=== PATIENT | male | born 1960 | race Hispanic/Latino ===

== ENCOUNTER 2019-11-04 14:58 | Inpatient (IN) | payer MEDICAID, SELFPAY ==
[2019-11-04] VITALS (12 sets, daily range): BP systolic 126–161; BP diastolic 82–102; PULSE 18–106; RESP 18–100; TEMP 36.5–37.7; O2SAT 77–100; BMI 30.9
--- NOTE | ~2019-11-04 | XR_ITS ---
EXAMINATION: XR chest 2V DATE: 11/06/2019 09:15 INDICATION: Leukocytosis TECHNIQUE: Frontal and lateral views of the chest are obtained COMPARISON: None available FINDINGS: The lungs are free of acute opacities. There is no pleural effusion or pneumothorax. The ca rdiomediastinal silhouette is normal. The visualized bones and soft tissues are unremarkable. A large volume of colonic gas is noted. IMPRESSION: 1. No acute cardiopulmonary abnormality. Reviewed, dictated and finalized at location A.
--- NOTE | ~2019-11-04 | CT_ITS ---
EXAMINATION: CT abdomen pelvis w con EXAM DATE: 11/04/2019 16:24 INDICATION: Abdominal pain. TECHNIQUE: Spiral CT of the abdomen and pelvis was performed following intravenous injection of 100 m L Omnipaque 350. Axial, coronal and sagittal images were reviewed. The dose-length product (DLP) fo r this examination was 728.72 mGy-cm. The exposure was tailored according to patient size (auto mA e xposure control), and iterative reconstruction (ASIR) was used as additional dose reduction technique . There is no prior study for comparison. FINDINGS: There is a sigmoid colonic mass for approximately 8 cm in length with wall thickening, narr owing of the lumen, likely causing partial obstruction given the moderate to large amount of colonic stool proximal to this. Some small adjacent round lymph nodes which likely have malignancy but are no t pathologically enlarged. No retroperitoneal lymphadenopathy. There are approximately 20 liver mass es centrally low dense, consistent with metastatic disease, largest in the inferior aspect of the rig ht liver lobe measuring 9 cm. Gallbladder is unremarkable. No biliary obstruction. Portal and splenic veins are patent. Kidneys enhance symmetrically. There is no hydronephrosis. The prostate is unremarkable. The bladder is u nremarkable. There is mild scattered arteriosclerotic disease. There are small bilateral inguinal fa t-containing hernias. The appendix is normal. The stomach and small bowel are unremarkable. No free intraperitoneal gas. The heart is normal in size. There are no pericardial or pleural effusions. The lung bases are u nremarkable. Several small femoral sclerotic foci likely bone islands. IMPRESSION: 1. Sigmoid colonic mass causing low-grade obstruction with moderate to large amount of stool proxima l to this. Small round perisigmoid lymph nodes, likely positive for malignancy. 2. Liver metastatic disease. Reviewed, dictated and finalized at location A. IMPRESSION: 1. Sigmoid colonic mass causing low-grade obstruction with moderate to large a mount of stool proximal to this. Small round perisigmoid lymph nodes, likely po sitive for malignancy. 2. Liver metastatic disease.
[2019-11-04 15:30] LABS: Basophils Absolute Auto 0.1 K/mm3 (0.0-0.1); Basophils Percent Auto 0.6 % (0.2-1.2); Eosinophils Absolute Auto 0.2 K/mm3 (0-0.3); Eosinophils Percent Auto 1.7 % (0-4.4); Hematocrit 28.8 % (42.0-52.0); Hemoglobin 7.6 g/dL (14.0-18.0); Immature Granulocyte Absolute 0.04 K/mm3 (0.00-0.031); Immature Granulocyte Percent A 0.4 % (0-0.5); Lymphocytes Absolute Auto 2.11 K/mm3 (0.9-3.2); Lymphocytes Percent Auto 18.8 % (18.3-44.2); Mean Corpuscular HGB Conc 26.4 g/dl (32-36); Mean Corpuscular Hemoglobin 17.4 pg (26-34); Mean Corpuscular Volume 66.1 fl (80-100); Monocytes Absolute Auto 0.9 K/mm3 (0.1-0.6); Monocytes Percent Auto 8.3 % (2.6-8.5); Neutrophils Absolute Auto 7.9 K/mm3 (1.3-6.7); Neutrophils Percent Auto 70.2 % (45.5-73.1); Platelet Count Result 676 k/mm3 (150-375); Red Blood Count 4.36 M/mm3 (4.6-6.20); Red Cell Distribution Width 22.2 % (11.5-14.5); White Blood Count 11.2 K/mm3 (4.5-10.0)
[2019-11-04 15:41] LABS: Alanine Aminotransferase 16 U/L (4-50); Albumin Level 4.8 g/dL (3.5-5.1); Alkaline Phosphatase 122 U/L (38-126); Aspartate Amino Transferase 44 U/L (17-59); Bilirubin,Total 0.9 mg/dL (0.2-1.3); Blood Urea Nitrogen 16 mg/dL (9-20); Calcium 9.1 mg/dL (8.4-10.2); Carbon Dioxide 27 mmol/L (22-30); Chloride 101 mmol/L (98-107); Estimated CRCL calculation 82 ml/min; Estimated Glomerular Filt Rate > 60; Glucose 179 mg/dL (75-110); Lipase 59 U/L (23-300); Potassium 3.9 mmol/L (3.4-5.0); Sodium 136 mmol/L (137-145)
[2019-11-04 15:50] LABS: Hypochromasia 2+ (NORMAL); Platelet Estimate Increased (Adequate)
[2019-11-04 15:51] LABS: Anisocytosis 2+ (NORMAL)
[2019-11-04] MEDS: SODIUM CHLORIDE 0.9% IV 1,000 ML 999 ML IV CONT (16:02)
[2019-11-04] MEDS: KETOROLAC 30 MG/ML VIAL (*BKC) IV PUSH (16:02)
[2019-11-04 16:44] LABS: Add Urine Microscopic? NO; Appearance Urine Clear (Clear); Bilirubin Urine Negative (Negative); Blood Urine Negative (Negative); Color Urine Yellow (Yellow); Glucose Urine UA Negative (Negative); Ketones Urine Negative (Negative); Leukocyte Esterase Ur Negative LEU/UL (Negative); Nitrate Urine Negative (Negative); Protein Urine Negative (Negative); Urobilinogen Urine Negative mg/dL (<2.0)
[2019-11-04 16:47] LABS: Specific Grav Ur > 1.060 (1.001-1.035)
--- NOTE | 2019-11-04 17:07 | ED.ABDPAIN ---
HPI - Abdominal Pain General Chief Complaint: Abdominal Pain Stated Complaint: IBS Time Seen by Provider: 11/04/19 15:01 Source: RN notes reviewed History of Present Illness HPI narrative: Patient presents emergency department from home for abdominal pain. Patient states he has been having ongoing abdominal pain for the past 2 years that has worsened in the past several weeks. The pain is located diffusely throughout the abdomen described as cramping. He states that he had self diagnosed himself with IBS but has had no official work-up. He denies any fevers or chills nausea vomiting diarrhea or any other symptoms of concern he states he has had thin stools states he is taking no pain medication today Related Data Home Medications Medication Instructions Recorded Confirmed No Home Medications 11/04/19 11/04/19 aspirin 325 mg PO BID 11/04/19 11/04/19 Allergies Allergy/AdvReac Type Severity Reaction Status Date / Time No Known Allergies Allergy Verified 11/04/19 15:10 Review of Systems Review of Systems: Narrative: Gen.: Denies fevers or chills Eyes: Denies eye pain or visual change ENT: Denies congestion Respiratory: Denies shortness of breath or cough CV: Denies chest pain or palpitations GI: see HPI denies burning, urgency, frequency or hematuria Musculoskeletal: Denies back pain or muscle pain Neuro: Denies numbness, tingling, weakness or focal weakness Skin: Denies rash Except as documented, all other systems reviewed and negative ON LICENSE OF [facility] Past Medical History Medical History (Updated 11/04/19 @ 17:25 by Sung Hartman DO) Patient denies significant medical history Social History Social History (Updated 11/04/19 @ 17:09 by Sung Hartman DO) Smoking packs per day: 0.5 Smoking cigarettes per day: 10.0 Gender identity (if verbalized by the patient): Male Exam Narrative: Exam Narrative: APPEARANCE: No acute distress, nontoxic, resting in bed EYES: EOMI HEENT: Normocephalic, atraumatic, OMM RESPIRATORY: No respiratory distress Clear to auscultation bilaterally with no rhonchi wheezing or rales. CARDIOVASCULAR: Regular rate and rhythm without murmurs rubs or gallops. ABDOMINAL: Soft, nondistended, diffusely tender to palpation no rebound or guarding Rectal: No hemorrhoids or fissures no active bleeding small amount of light brown stool that is Hemoccult positive MUSCULOSKELETAl: Moves all extremities. No clubbing, cyanosis or edema. NEURO: Awake and alert. Following commands, speech normal, no focal deficits SKIN:: Warm, dry. No rashes lesions or abrasions PSYCHIATRIC: Normal affect/mood, Course Course Emergency Course: Discussed with Dr. Melgar for general surgery agrees with consult at this time Discussed with Dr. Jalloh for GI's presentation work-up agrees with consult at this time Discussed with [facility] for Dr Alvarado presentation work-up agrees with admission at this time Discussed with patient and family results of workup and diagnosis. Discussed need for admission. Patient and family understand and agree to current treatment plan. Patient was updated on colonic mass likely colon cancer with metastasis and need for further evaluation Vital Signs Vital signs: Vital Signs Pulse Rate 106 H 11/04/19 15:02 Respiratory Rate 20 11/04/19 15:02 Blood Pressure 161/102 H 11/04/19 15:02 Pulse Oximetry 100 11/04/19 15:02 Temperature 99.9 F H 11/04/19 15:09 Pulse Rate 97 11/04/19 16:26 Respiratory Rate 20 11/04/19 16:26 Blood Pressure 143/90 H 11/04/19 16:26 Pulse Oximetry 100 11/04/19 16:26 MDM - Abdominal Pain Lab Data Result diagrams: 11/04/19 15:24 11/04/19 15:24 Labs: Lab Results 11/04/19 11/04/19 11/04/19 Range/Units 15:23 15:24 15:24 WBC 11.2 H (4.5-10.0) K/mm3 RBC 4.36 L (4.6-6.20) M/mm3 Hgb 7.6 L (14.0-18.0) g/dL Hct 28.8 L (42.0-52.0) % MCV 66.1 L (80-100) fl MCH 17.4 L
--- NOTE | 2019-11-04 19:20 | ADMGEN ---
This patient, Jeff Duke, was admitted to 2 Medical Room 254-01. Patient/family oriented to hospital policies and general routines including ID bracelet, bed and alarms, visiting hours, pain management, procedures, bathroom and other care routines, personal items, smoking policy, room service/diet, and visiting hours. Valuables list has been completed. Information on how to activate the Rapid Response Team has been discussed. Patient/Family are encouraged to report perceived risks to care and to ask questions if they do not understand what they are told or what they should do.
[2019-11-04] MEDS: SODIUM CHLORIDE 0.9% IV 1,000 ML 125 ML IV CONT (19:26)
[2019-11-04 19:48] LABS: Hematocrit 25.5 % (42.0-52.0)
[2019-11-04 19:51] LABS: Hemoglobin 6.8 g/dL (14.0-18.0)
--- NOTE | 2019-11-04 23:33 | PM.IMHP ---
H&P: HPI History of Present Illness Chief complaint: Colonic mass with metastasis Narrative: This is a 59 year old male who hasn't seen a healthcare provider in years and presented to the hospital with severe diffuse abdominal pain, diarrhea, and fatigue. He has been dealing with abdominal pain for the past two years and has self diagnosed himself with irritable bowel disease. He has never had a colonoscopy. He also reports decreased appetite, fatigue, and generalized weakness. He denies any unintentional weight loss, night sweats, or fevers. He has had increased diarrhea and describes having about 20 soft bowel movements. He currently smokes 1-2 cigarettes every other day. He denies any rectal bleeding or dark black stools. The patient was evaluated in the ER and found to have significant anemia. He has been admitted to the hospital for further workup and Oncology and GI specialists have been consulted by ER provider. He has no other complaints tonight and denies any headaches, sore throat, cough, chest pain, or focal neurological symptoms. Review of Systems Review of Systems: All systems reviewed & are unremarkable except as noted in HPI and below PMFSH Past Medical History Medical History Patient denies significant medical history Surgical History Surgical History No significant past surgical history Family History Family History Other Diabetes mellitus Heart disease Social History Social History Smoking status: Current some day smoker Tobacco type: cigars Additional smoking assessment comments: Smokes 1-3 cigarillos every other day Alcohol intake: former Alcohol use details: Has not had any alcohol use in months Substance use: never Substance use type: does not use Living arrangements: with family Additional living arrangements comments: Lives with his . They have three children. 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 Gender identity (if verbalized by the patient): Male Spiritual care concerns: No Comments Past Surgical history is revewed and negative. Meds Home Medications and Allergies Home Medications Medication Instructions Recorded Confirmed Type acetaminophen [Tylenol] 650 mg PO PRN PRN 11/04/19 11/04/19 History aspirin 325 mg PO BID 11/04/19 11/04/19 History Allergies Allergy/AdvReac Type Severity Reaction Status Date / Time No Known Allergies Allergy Verified 11/04/19 15:10 Vital Signs Vital Signs - 24 hr 11/04/19 15:02 11/04/19 15:09 11/04/19 16:06 Temperature 37.7 C H Pulse Rate 106 H 80 Respiratory Rate 20 20 Blood Pressure 161/102 H 126/90 Pulse Oximetry 100 100 11/04/19 16:26 11/04/19 17:25 11/04/19 18:23 Temperature 36.7 C Pulse Rate 97 88 Respiratory Rate 20 18 20 Blood Pressure 143/90 H 133/90 Pulse Oximetry 100 98 11/04/19 19:17 11/04/19 20:55 11/04/19 21:10 Temperature 36.5 C 36.6 C 37.0 C Pulse Rate 76 80 18 L Respiratory Rate 18 18 100 H Blood Pressure 144/84 H 133/82 149/95 H Pulse Oximetry 100 100 77 L 11/04/19 22:00 11/04/19 22:10 11/04/19 23:10 Temperature 37.1 C 37.1 C 37.0 C Pulse Rate 82 18 L 18 L Respiratory Rate 18 100 H 100 H Blood Pressure 144/86 H 139/86 143/84 H Pulse Oximetry 100 79 L 84 L Exam Const: General: cooperative, no acute distress, alert and awake Nutritional Appearance: well nourished Orientation/consciousness: patient oriented x3 HENMT: Head: normal to inspection General nose exam: Normal external nose present Face and sinus: normal facial exam Mouth: Yes Normal oral and palatal mucosa present and Yes oropharynx normal Eyes: Pupils: Equal, round and r
[2019-11-05 00:10] VITALS: BP 134/83; PULSE 78; RESP 18; TEMP 37.2; O2SAT 100
[2019-11-05 00:50] VITALS: BP 138/87; PULSE 18; RESP 100; TEMP 37.2; O2SAT 78
[2019-11-05 02:16] LABS: IFOB Positive Control Positive; Immunochemical Fecal Occult Bl Positive (N)
[2019-11-05 03:28] LABS: Basophils Absolute Auto 0.1 K/mm3 (0.0-0.1); Basophils Percent Auto 0.4 % (0.2-1.2); Eosinophils Absolute Auto 0.2 K/mm3 (0-0.3); Eosinophils Percent Auto 1.5 % (0-4.4); Hematocrit 27.3 % (42.0-52.0); Hemoglobin 7.6 g/dL (14.0-18.0); Immature Granulocyte Absolute 0.04 K/mm3 (0.00-0.031); Immature Granulocyte Percent A 0.3 % (0-0.5); Lymphocytes Absolute Auto 1.91 K/mm3 (0.9-3.2); Lymphocytes Percent Auto 16.4 % (18.3-44.2); Mean Corpuscular HGB Conc 27.8 g/dl (32-36); Mean Corpuscular Volume 68.1 fl (80-100); Mean Platelet Volume 9.7 fl (7.4-10.4); Monocytes Absolute Auto 0.9 K/mm3 (0.1-0.6); Neutrophils Absolute Auto 8.6 K/mm3 (1.3-6.7); Neutrophils Percent Auto 73.4 % (45.5-73.1); Platelet Count Result 499 k/mm3 (150-375); Red Blood Count 4.01 M/mm3 (4.6-6.20); Red Cell Distribution Width 24.1 % (11.5-14.5); White Blood Count 11.7 K/mm3 (4.5-10.0)
[2019-11-05 03:37] LABS: Blood Urea Nitrogen 14 mg/dL (9-20); Calcium 8.3 mg/dL (8.4-10.2); Carbon Dioxide 24 mmol/L (22-30); Chloride 105 mmol/L (98-107); Estimated CRCL calculation 92 ml/min; Estimated Glomerular Filt Rate > 60; Glucose 93 mg/dL (75-110); Potassium 4.1 mmol/L (3.4-5.0); Sodium 135 mmol/L (137-145)
[2019-11-05 03:39] LABS: Hemoglobin A1C 6.1 % (<5.7)
[2019-11-05 03:52] LABS: Microcytosis 2+ (NORMAL); Platelet Estimate Adequate (Adequate)
[2019-11-05 03:53] LABS: Hypochromasia 2+ (NORMAL)
[2019-11-05 06:00] VITALS: BP 143/88; PULSE 78; RESP 20; TEMP 36.5; O2SAT 18
[2019-11-05 07:12] LABS: Hematocrit 27.4 % (42.0-52.0); Hemoglobin 7.5 g/dL (14.0-18.0)
[2019-11-05] MEDS: SODIUM CHLORIDE 0.9% IV 1,000 ML 125 ML IV CONT ×2 (07:56→16:05)
--- NOTE | 2019-11-05 08:43 | WPDGICN ---
Assessment and Plan Assessment and plan (1) Colon cancer metastasized to liver: Code(s): C18.9 - Malignant neoplasm of colon, unspecified; C78.7 - Secondary malignant neoplasm of liver and intrahepatic bile duct Status: Acute Assessment and Plan: presentation consistent with colon cancer and liver mets. will proceed with colonoscopy tomorrow, CEA 12k will need also surgery and oncology evaluation (2) Metastases to the liver: Code(s): C78.7 - Secondary malignant neoplasm of liver and intrahepatic bile duct Status: Acute (3) Iron deficiency anemia due to chronic blood loss: Code(s): D50.0 - Iron deficiency anemia secondary to blood loss (chronic) Status: Acute Assessment and Plan: due to colon cancer continue to monitor, transfusion if hb<7 (4) Abdominal pain: Qualifiers: Abdominal location: unspecified location Qualified Code(s): R10.9 - Unspecified abdominal pain Code(s): R10.9 - Unspecified abdominal pain Status: Acute Assessment and Plan: due to colon mass GI Consult Note Consult date/time: 11/05/19 08:43 Reason for consult: abdominal pain, colon mass HPI: Jeff Duke is a 59 year old male who has not seen a doctor or taking any medication who came to ER yesterday with progressive abdominal pain worse after using the restroom, cramping and worse last few weeks, also noted change in bowel pattern with thin stools. He also has been feeling tired and lightheaded, lost about 20 lb last 2 years, decrease appetite. Ct scan showed sigmoid colonic mass causing low-grade obstruction with moderate to large amount of stool proximal to this, small round perisigmoid lymph nodes, likely positive for malignancy and liver metastatic disease. He never had a colonoscopy, denies family history of colon cancer. Bloodwork showed microcytic anemia, hb 7.5, normal liver enzymes. Review of Systems Constitutional: Constitutional: Reports fatigue, Reports lethargy, Reports poor appetite and Reports weight loss Eyes: Eyes: Reports no additional eye complaints ENT: Comments: he uses hearing aids Cardiovascular: Cardiovascular: Reports lightheadedness Respiratory: Respiratory: Denies cough Gastrointestinal: Gastrointestinal: Reports abdominal pain Genitourinary: Genitourinary: Denies dysuria Musculoskeletal: Musculoskeletal: Denies neck pain Integumentary/Breasts: Skin/Breast: Denies pruritus Neurologic: Denies numbness Psychiatric: Psychiatric: Denies depression Endocrine: Endocrine: Denies cold intolerance PMF Past Medical History Medical History Patient denies significant medical history Family History Family History (Updated 11/04/19 @ 23:39 by Alber Randall MD) Other Diabetes mellitus Heart disease Social History Social History Smoking packs per day: 0.5 Smoking cigarettes per day: 10.0 Smoking status: Current some day smoker Tobacco type: cigarettes Additional smoking assessment comments: 1 per every 3 days Alcohol intake: former Substance use: never Substance use type: does not use Gender identity (if verbalized by the patient): Male Spiritual care concerns: No Meds Home Medications and Allergies Home Medications Medication Instructions Recorded Confirmed Type acetaminophen [Tylenol] 650 mg PO PRN PRN 11/04/19 11/04/19 History aspirin 325 mg PO BID 11/04/19 11/04/19 History Allergies Allergy/AdvReac Type Severity Reaction Status Date / Time No Known Allergies Allergy Verified 11/04/19 15:10 Vital Signs Vital Signs - 24 hr 11/04/19 15:02 11/04/19 15:09 11/04/19 16:06 Temperature 99.9 F H Pulse Rate 106 H 80 Respiratory Rate 20 20 Blood Pressure 161/102 H 126/90 Pulse Oximetry 100 100 11/04/19 16:26 11/04/19 17:25 11/04/19 18:23 Temperature 98.0 F Pulse R
--- NOTE | 2019-11-05 09:53 | PM.CNGS ---
Assessment and Plan Assessment and plan (1) Colon cancer metastasized to liver: Code(s): C18.9 - Malignant neoplasm of colon, unspecified; C78.7 - Secondary malignant neoplasm of liver and intrahepatic bile duct Status: Acute Assessment and Plan: CT scan reviewed and discussed in detail with the patient. This is concerning for colon cancer with liver metastasis. CEA 12,300 and the patient presents with microcytic anemia. CT suggests a low-grade obstruction associated with the colonic mass. His abdominal exam is benign and bowels continue to move. No indication for urgent surgical intervention. GI has been consulted and appreciate their recommendations. They are prepping the patient today for a colonoscopy tomorrow. Would recommend an Oncology consultation to evaluate for possible neoadjuvant chemotherapy. I discussed the plan of care with the patient and answered all questions. Thank you for allowing me to evaluate the patient in consultation and we will continue to follow along with you. (2) Iron deficiency anemia due to chronic blood loss: Code(s): D50.0 - Iron deficiency anemia secondary to blood loss (chronic) Status: Acute Assessment and Plan: Likely secondary to the colon cancer. Continue to monitor H/H. Additional Plan I discussed the patient's case and formulated the plan of care with Dr. Melgar. History of Present Illness Consult details Consult date: 11/05/19 Reason for consult: other (CT findings of sigmoid mass and low-grade obstruction with likely metastatic liver disease) Requesting physician: Sung Hartman DO Narrative: This is a 59-year-old male with no known past medical history who has not seen a physician in many years. He reportedly noticed a change in his bowel habits about two years ago when he began to have loose stools and intermittent mild abdominal discomfort. The patient states that he believed he had irritable bowel syndrome and did not see a provider for his issues. He states that his symptoms were very mild and tolerable. He recently has noticed increasing fatigue and also an increase in frequency of loose bowel movements. He reports more than 10 bowel movements a day and noticing the urge to have a bowel movement at least once per hour. His abdominal discomfort remained mild and intermittent. In the past three days, he states his fatigue worsened significantly, as well as the frequency of his bowel movements, therefore he presented to the emergency department for further evaluation. CT scan of the abdomen and pelvis showed a sigmoid colonic mass causing low-grade obstruction with moderate to large amounts of stool proximal to this, small round perisigmoid lymph nodes, likely positive for malignancy, and liver metastatic disease. Labs also revealed anemia with a hemoglobin of 7.6. The patient was admitted to the Hospitalist service. Gastroenterology was consulted. Our service was also consulted due to the CT findings. The patient is now being seen on the medical floor. He reports that since his symptoms started two years ago, he has been able to tolerate a diet, but would eat small frequent meals. He denies any current abdominal pain, nausea, or vomiting. Denies any nausea or vomiting at home prior to admission. Denies any bloody or black, tarry stools. No other complaints at this time. Denies a family history of colon cancer. No previous colonoscopies. The patient was transfused one unit of packed red blood cells since admission. Hemoglobin this morning stable at 7.5. CEA was checked and 12,300. Review of Systems Constitutional: Constitutional: Reports as per HPI, Denies chills, Denies excessive sweating, Reports fatigue, Denies fever(s), Denies headache(s) and Denies weakness Eyes: Eyes: Denies change in vision and Denies loss of vision ENT: Reports Normal hearing present, Denies dizziness and Denies headache(s) Cardiovascular: Cardiovascular: Denies chest pain, Denies syncope, Denies leg sergio
--- NOTE | 2019-11-05 12:30 | PC.NURSE ---
Dr. Guadarrama requesting that I get ahold of surgery to have port placed for chemotherapy. [facility] called and spoke to surgeons office-stated Dr. Melgar would be in charge of port placement.
[2019-11-05 14:00] VITALS: BP 132/92; PULSE 82; RESP 16; TEMP 37.1; O2SAT 100
--- NOTE | 2019-11-05 14:34 | PM.IMPN ---
Progress Note: A&P Assessment and Plan (1) Colonic mass: Code(s): K63.89 - Other specified diseases of intestine Status: Acute Assessment and Plan: -----patient has never had a colonoscopy before in his CEA is elevated. Likely colon cancer. Plan for colonoscopy and biopsy tomorrow morning. Dr. Guadarrama has been consulted. Poor prognosis (2) Anemia: Qualifiers: Anemia type: unspecified type Qualified Code(s): D64.9 - Anemia, unspecified Code(s): D64.9 - Anemia, unspecified Status: Acute Assessment and Plan: -----likely due to colon cancer. Transfused earlier in the stay and not having any symptoms such as chest pain, lightheadedness or dizziness. Will need to go home on oral iron. (3) Metastases to the liver: Code(s): C78.7 - Secondary malignant neoplasm of liver and intrahepatic bile duct Status: Acute Assessment and Plan: ------Continue Heme-Onc recommendations. (4) Abnormal glucose: Code(s): R73.09 - Other abnormal glucose Status: Acute (5) Pre-diabetes: Code(s): R73.03 - Prediabetes Status: Acute Assessment and Plan: -----patient has a known history of pre diabetes. Continue routine monitoring outpatient Additional Plan Date of service was 11/04/2019 at 23:00 hrs. Time Spent With Patient Time with patient: 25 - 35 minutes Subjective Date/time seen: 11/05/19 14:34 Interval history: Pt is a 59-year-old male here for colon mass with liver metastases. Patient was seen today and states that his stomach feels better. He has not had any pain but he has a lot of gas. He continues to have diarrhea. He says that he has been diagnosed with prediabetes and understands it. Pt denies nausea, vomiting, fevers, chills, chest pain, sob, lightheadedness, dizziness or abdominal pain. Review of Systems Review of Systems: All systems reviewed & are unremarkable except as noted in HPI and below Exam Narrative: Exam Narrative: General: Well developed well nourished patient resting comfortably in bed in NAD HEENT: normocephalic Neck: supple Neuro: Alert and oriented x4 CV:RRR Resp:CTA Abd: Soft, non distended. No pain to palpation. Positive bowel sounds Extremities: No swelling, erythema, or pain to palpation. Objective Data Vital Signs Vital Signs: Vital Signs - 24 hr 11/04/19 15:02 11/04/19 15:09 11/04/19 16:06 Temperature 99.9 F H Pulse Rate 106 H 80 Respiratory Rate 20 20 Blood Pressure 161/102 H 126/90 Pulse Oximetry 100 100 11/04/19 16:26 11/04/19 17:25 11/04/19 18:23 Temperature 98.0 F Pulse Rate 97 88 Respiratory Rate 20 18 20 Blood Pressure 143/90 H 133/90 Pulse Oximetry 100 98 11/04/19 19:17 11/04/19 20:55 11/04/19 21:10 Temperature 97.7 F 97.9 F 98.6 F Pulse Rate 76 80 18 L Respiratory Rate 18 18 100 H Blood Pressure 144/84 H 133/82 149/95 H Pulse Oximetry 100 100 77 L 11/04/19 22:00 11/04/19 22:10 11/04/19 23:10 Temperature 98.8 F 98.7 F 98.6 F Pulse Rate 82 18 L 18 L Respiratory Rate 18 100 H 100 H Blood Pressure 144/86 H 139/86 143/84 H Pulse Oximetry 100 79 L 84 L 11/05/19 00:10 11/05/19 00:50 11/05/19 06:00 Temperature 99.0 F 98.9 F 97.7 F Pulse Rate 78 18 L 78 Respiratory Rate 18 100 H 20 Blood Pressure 134/83 138/87 143/88 H Pulse Oximetry 100 78 L 18 L Intake/Output Intake/Output: Intake & Output 11/02/19 11/03/19 11/04/19 11/05/19 23:59 23:59 23:59 23:59 Intake Total 1000 1890 Output Total 500 Balance 1000 1390 Meds/Results Medications: Active Medications Generic Name Dose Route Start Last Admin Trade Name Freq PRN Reason Stop Dose Admin Acetaminophen 650 mg 11/05/19 14:28 Tylenol Tablet PO Q4H PRN Pain or Fever Bisacodyl 5 mg 11/05/19 17:00 Dulcolax Tab PO 11/05/19 17:01 ONCE ONE Sodium Chloride 1,000 mls @ 125 mls/hr 11/04/19 17:25 11/05/19 07:56 Normal Campbell
[2019-11-05] MEDS: ACETAMINOPHEN 325 MG TABLET 650 MG PO ×2 (14:41→19:09)
[2019-11-05] MEDS: PEG (High)/E-LYTE SOLN 4,000 ML BTL 4000 ML PO (16:03)
[2019-11-05] MEDS: BISACODYL 5 MG TABLET EC PO (16:03)
[2019-11-05 17:49] LABS: Iron 35 ug/dL (49-181)
[2019-11-05 17:58] LABS: Percent Iron Saturation 11 % (20-50)
--- NOTE | 2019-11-05 18:23 | CONS_ITS ---
DATE OF CONSULTATION: 11/05/2019 REASON FOR CONSULTATION: Metastatic colon cancer. HISTORY OF PRESENTING ILLNESS: This is a pleasant 59-year-old male who has been in good health, but has been dealing with abdominal pain off and on for at least a couple of years duration. Pain was diffuse in nature. He also had some rectal pain. He has change in bowel caliber, and stool is more like 10 ribbons for last several weeks duration. He lost almost 5 pounds weight and complained of tiredness and fatigue. He denies any melena and hematochezia. He denies any diarrhea. He never had a colonoscopy done. He came into the ER and found to have significant anemia. CT abdomen and pelvis was done on November 03 that showed a sigmoid colon mass with low-grade obstruction and [id number] amount of stool proximal to this with liver metastasis. Liver edges and lymphadenopathy likely secondary to malignancy. REVIEW OF SYSTEMS: As per HPI, otherwise negative. PAST MEDICAL HISTORY: None. PAST SURGICAL HISTORY: None. FAMILY HISTORY: Positive for diabetes and heart disease. No history of malignancy. SOCIAL HISTORY: The patient only smokes and drinks on the weekend. He is and has 3 children. The patient works as a DJ. HOME MEDICATIONS: Reviewed. ALLERGIES: REVIEWED. PHYSICAL EXAMINATION: GENERAL: This patient is a well-developed, well-nourished, male, in no apparent distress. VITAL SIGNS: Per nursing note. HEENT: Normocephalic, atraumatic. Clear oropharynx. LUNGS: Clear to auscultation bilaterally. CARDIOVASCULAR: Regular rate and rhythm. No murmurs. ABDOMEN: Slightly tender, more diffuse. Bowel sounds are positive. No hepatosplenomegaly. EXTREMITIES: No edema. NEUROLOGIC: Grossly intact. LABORATORY DATA: WBC 11.7, hemoglobin 7.6, MCV 68.1, platelets 499,000. Creatinine 0.8, total bilirubin 0.9, AST 44, ALT 16, alkaline phosphate is 9.0. CEA 123,000. ASSESSMENT AND PLAN: 1. Metastatic colon cancer. The patient is a 59-year-old male presented with diffuse abdominal pain ongoing for at least couple of years duration along with rectal pain, started more recently. He denies any melena and hematochezia, but does have change in bowel caliber for last several weeks duration. CT scan was performed that showed sigmoid colon mass with low-grade obstruction and small adjacent lymphadenopathy. There was at least 20 liver masses, consistent with metastatic disease with the largest in the inferior aspect of the right lower lobe measures 9 cm in size. The patient is going to have colonoscopy done tomorrow morning. Labs reviewed including CEA that is extremely elevated. After the pathological diagnosis is confirmed with the help of the biopsy, we will proceed with a PET scan as an outpatient. I will also ask our surgical fellows to proceed with a MediPort placement in preparation for palliative chemotherapy as an outpatient. I have discussed the prognosis and treatment for metastatic colon cancer with the patient in detail and answered all the questions to the patient's satisfaction. 2. Microcytic anemia. This is likely secondary to iron deficiency anemia. I will order the iron studies. We will start him on iron infusion once iron studies are back. The patient has been provided with the office information. I will see him in my office. I have answered all the questions to the patient's satisfaction. NO MCKENZIE M.D. FORMAT PROOFREADER FORMAT PROOFREADER D I MT: Kenny
[2019-11-05 21:22] VITALS: PULSE 82; RESP 16; O2SAT 100
[2019-11-05 21:31] VITALS: BP 163/90; PULSE 73; RESP 18; TEMP 36.8; O2SAT 100
[2019-11-06] VITALS (9 sets, daily range): BP systolic 132–181; BP diastolic 84–109; PULSE 88–111; RESP 16–28; TEMP 36.2–37.1; O2SAT 99–100
[2019-11-06] MEDS: SODIUM CHLORIDE 0.9% IV 1,000 ML 125 ML IV CONT (01:00)
[2019-11-06] MEDS: MAGNESIUM CITRATE 300 ML BTL PO (05:00)
[2019-11-06 05:22] LABS: Hemoglobin 9.3 g/dL (14.0-18.0); Mean Corpuscular HGB Conc 28.2 g/dl (32-36); Mean Corpuscular Hemoglobin 19.2 pg (26-34); Mean Platelet Volume 9.2 fl (7.4-10.4); Platelet Count Result 621 k/mm3 (150-375); Red Blood Count 4.85 M/mm3 (4.6-6.20); Red Cell Distribution Width 24.1 % (11.5-14.5); White Blood Count 16.1 K/mm3 (4.5-10.0)
[2019-11-06 05:38] LABS: Blood Urea Nitrogen 14 mg/dL (9-20); Calcium 8.9 mg/dL (8.4-10.2); Carbon Dioxide 23 mmol/L (22-30); Chloride 103 mmol/L (98-107); Estimated CRCL calculation 105 ml/min; Estimated Glomerular Filt Rate > 60; Glucose 167 mg/dL (75-110); Potassium 3.8 mmol/L (3.4-5.0); Sodium 136 mmol/L (137-145)
[2019-11-06] MEDS: MORPHINE SULFATE 2 MG/ML INJ IV PUSH (09:36)
[2019-11-06] MEDS: AMLODIPINE BESYLATE 5 MG TABLET PO (09:38)
[2019-11-06 10:06] LABS: Lactic Acid Reflex 2.6 mmol/L (0.7-2.1)
--- NOTE | 2019-11-06 10:21 | PM.PNGS ---
Progress Note: A&P Assessment and Plan (1) Colon cancer metastasized to liver: Code(s): C18.9 - Malignant neoplasm of colon, unspecified; C78.7 - Secondary malignant neoplasm of liver and intrahepatic bile duct Status: Acute Assessment and Plan: plan for colonoscopy today, will need tissue bx, will need neoadjuvant chemotx per oncology once path established, will place port for chemo prior to initiation of treatment, will reserve operative intervention only in case of emergent issues (ie obstruction, bleeding, perf) (2) Iron deficiency anemia due to chronic blood loss: Code(s): D50.0 - Iron deficiency anemia secondary to blood loss (chronic) Status: Acute Subjective Subjective Date/Time Seen: 11/06/19 10:21 Pt reports he is quite uncomfortable this am. Pt reports crampy pain, bloating, N/V, diarrhea since taking prep. Review of Systems Constitutional: Constitutional: Reports difficulty sleeping, Reports fatigue, Reports lethargy and Reports weakness Cardiovascular: Cardiovascular: Denies chest pain and Denies palpitations Respiratory: Respiratory: Denies dyspnea Gastrointestinal: Gastrointestinal: Reports abdominal pain, Reports bloating, Reports diarrhea, Reports nausea and Reports vomiting Exam Const: General: in distress moderate Resp: Auscultation: clear to auscultation bilaterally Cardio: Rate: regular rate Rhythm: regular rhythm GI: Other: soft, mod dist, mod TTP diffusely, no peritoneal signs Objective Data Vital Signs Vital Signs: Vital Signs - 24 hr 11/05/19 14:00 11/05/19 21:22 11/05/19 21:31 Temperature 37.1 C 36.8 C Pulse Rate 82 82 73 Respiratory Rate 16 16 18 Blood Pressure 132/92 H 163/90 H Pulse Oximetry 100 100 100 11/06/19 06:00 11/06/19 09:41 Temperature 36.4 C Pulse Rate 94 Respiratory Rate 16 Blood Pressure 181/109 H 175/103 H Pulse Oximetry 100 Intake/Output Intake/Output: Intake & Output 11/03/19 11/04/19 11/05/19 11/06/19 23:59 23:59 23:59 23:59 Intake Total 1000 3551 1431 Output Total 500 Balance 1000 3051 1431 Meds/Results Medications: Active Medications Generic Name Dose Route Start Last Admin Trade Name Freq PRN Reason Stop Dose Admin Acetaminophen 650 mg 11/05/19 14:28 11/05/19 19:09 Tylenol Tablet PO 650 mg Q4H PRN Administration Pain or Fever Amlodipine Besylate 5 mg 11/06/19 09:00 11/06/19 09:38 Norvasc PO 5 mg QAM CRISPIN Administration Hydralazine HCl 10 mg 11/06/19 08:13 Apresoline Hcl Inj IV PUSH Q8H PRN systolic >175 Sodium Chloride 1,000 mls @ 125 mls/hr 11/04/19 17:25 11/06/19 09:24 Normal Saline Iv IV CONT 125 mls/hr .Q8H CRISPIN Infusion Morphine Sulfate 2 mg 11/06/19 09:03 11/06/19 09:36 Morphine Sulfate Inj IV PUSH 2 mg Q2H PRN Administration Pain Rated 7-10 Radiology Results: ITS Impressions Abdomen/Pelvis CT 11/04/19 16:50 IMPRESSION: 1. Sigmoid colonic mass causing low-grade obstruction with moderate to large amount of stool proximal to this. Small round perisigmoid lymph nodes, likely positive for malignancy. 2. Liver metastatic disease. Chest X-Ray 11/06/19 09:22 IMPRESSION: 1. No acute cardiopulmonary abnormality. Labs Labs: Laboratory Results - last 24 hr 11/05/19 11/06/19 11/06/19 07:05 05:15 05:15 WBC 16.1 H RBC 4.85 Hgb 9.3 L Hct 33.0 L MCV 68.0 L MCH 19.2 L MCHC 28.2 L RDW 24.1 H Plt Count 621 H MPV 9.2 Sodium 136 L Potassium 3.8 Chloride 103 Carbon Dioxide 23 BUN 14 Creatinine 0.70 Estim Creat Clear Calc 105 Estimated GFR > 60 Glucose 167 H Lactic Acid Calcium 8.9 Iron 35 L TIBC 311 % Saturation 11 L Ferritin 12.10 11/06/19 09:35 WBC RBC Hgb Hct MCV MCH MCHC RDW Plt Count MPV Sodium Potassium Chloride Carbon Dioxide BUN Creatinine Estim Creat Clear Ortega
[2019-11-06] MEDS: hydrALAZINE HCL 20 MG/ML VIAL 10 MG IV PUSH (11:31)
--- NOTE | 2019-11-06 11:59 | PC.NURSE ---
To GI Lab per stretcher, IV intact.
--- NOTE | 2019-11-06 12:09 | WPDANESEPPF ---
Anes - Initial Pre Proc Eval Procedure: Operation Date: 11/06/19 13:00 Proposed Procedures p Colonoscopy - Kranthi Cano MD Date/Time: 11/06/19 12:09 Surgeon: Reta Wilson PA-C Pre Op Diagnosis: Colonic mass with metastasis Patient Data Age: 59 Gender: M Height: 5 ft 7 in Weight: 89.6 kg Last Vital Signs Temp 36.4 C 11/06/19 06:00 Pulse 94 11/06/19 06:00 Resp 16 11/06/19 06:00 BP 176/104 H 11/06/19 11:30 Pulse Ox 100 11/06/19 06:00 Allergies Allergy/AdvReac Type Severity Reaction Status Date / Time No Known Allergies Allergy Verified 11/04/19 15:10 Home Medications Medication Instructions Recorded Confirmed Type acetaminophen [Tylenol] 650 mg PO PRN PRN 11/04/19 11/04/19 History aspirin 325 mg PO BID 11/04/19 11/04/19 History Laboratory Tests 11/05/19 11/06/19 11/06/19 07:05 05:15 05:15 WBC 16.1 K/mm3 H K/mm3 (4.5-10.0) RBC 4.85 M/mm3 M/mm3 (4.6-6.20) Hgb 9.3 g/dL L g/dL (14.0-18.0) Hct 33.0 % L % (42.0-52.0) MCV 68.0 fl L fl (80-100) MCH 19.2 pg L pg (26-34) MCHC 28.2 g/dl L g/dl (32-36) RDW 24.1 % H % (11.5-14.5) Plt Count 621 k/mm3 H k/mm3 (150-375) MPV 9.2 fl fl (7.4-10.4) Sodium 136 mmol/L L mmol/L (137-145) Potassium 3.8 mmol/L mmol/L (3.4-5.0) Chloride 103 mmol/L mmol/L (98-107) Carbon Dioxide 23 mmol/L mmol/L (22-30) BUN 14 mg/dL mg/dL (9-20) Creatinine 0.70 mg/dL mg/dL (0.7-1.3) Estim Creat Clear Calc 105 ml/min ml/min Estimated GFR > 60 (59 - ) Glucose 167 mg/dL H mg/dL (75-110) Lactic Acid Calcium 8.9 mg/dL mg/dL (8.4-10.2) Iron 35 ug/dL L ug/dL (49-181) TIBC 311 ug/dL ug/dL (265-497) % Saturation 11 % L % (20-50) Ferritin 12.10 ng/mL ng/mL (11.1-264) 11/06/19 09:35 WBC RBC Hgb Hct MCV MCH MCHC RDW Plt Count MPV Sodium Potassium Chloride Carbon Dioxide BUN Creatinine Estim Creat Clear Calc Estimated GFR Glucose Lactic Acid 2.6 mmol/L H mmol/L (0.7-2.1) Calcium Iron TIBC % Saturation Ferritin Patient hx anesthesia problems: none Family hx anesthesia problems: none PMFSH Past Medical History Medical History Patient denies significant medical history Surgical History Surgical History No significant past surgical history Family History Family History Other Diabetes mellitus Heart disease Social History Social History Smoking status: Current some day smoker Tobacco type: cigars Additional smoking assessment comments: Smokes 1-3 cigarillos every other day Alcohol intake: former Alcohol use details: Has not had any alcohol use in months Substance use: never Substance use type: does not use Living arrangements: with family Additional living arrangements comments: Lives with his . They have three children. Occupation/Education: occupation Additional occupation/education comments: Works as a [employer]. Currently not working due to COVID pandemic. Gender identity (if verbalized by the patient): Male Spiritual care concerns: No Anes - Eval Final PreProcedure Day of Procedure 11/06/19 12:09 Patient weight: obese Heart: regular rate and rhythm Lungs: decreased breath sounds Airway: Mallampati scale class II Neurological: alert and oriented Last oral intake: >/= 8 hours ASA classification: III Emergent: no A
[2019-11-06] MEDS: LACTATED RINGERS 1,000 ML 150 ML IV CONT (12:30)
[2019-11-06 12:45] LABS: Reflex Lactic Acid Yes or No Add Lactic
--- NOTE | 2019-11-06 16:01 | PM.IMPN ---
Progress Note: A&P Assessment and Plan (1) Colonic mass: Code(s): K63.89 - Other specified diseases of intestine Status: Acute Assessment and Plan: -----patient has never had a colonoscopy before in his CEA is elevated. Likely colon cancer. Plan for colonoscopy and biopsy today. I am worried that he has at least a partial obstruction. His pain was significant early this morning and his lactic acid was mildly elevated. I have spoke with GI about obstruction versus perforation. Will redo a lactic acid. Dr. Jalloh is going to do a colonoscopy and will proceed further from there once he knows what is going on. Dr. Guadarrama has been consulted. Poor prognosis (2) Anemia: Qualifiers: Anemia type: unspecified type Qualified Code(s): D64.9 - Anemia, unspecified Code(s): D64.9 - Anemia, unspecified Status: Acute Assessment and Plan: -----likely due to colon cancer. Transfused earlier in the stay and not having any symptoms such as chest pain, lightheadedness or dizziness. Will need to go home on oral iron. . (3) Metastases to the liver: Code(s): C78.7 - Secondary malignant neoplasm of liver and intrahepatic bile duct Status: Acute Assessment and Plan: ------Continue Heme-Onc recommendations. (4) Abnormal glucose: Code(s): R73.09 - Other abnormal glucose Status: Acute Assessment and Plan: -----prediabetic. Additional Plan Date of service was 11/04/2019 at 23:00 hrs. Subjective Date/time seen: 11/06/19 16:01 Interval history: Pt is a 59-year-old male here for colon mass with liver metastases. Patient was seen today and states he is having abdominal pain. This started shortly after taking his prep. He said he has been having nausea and vomiting. He also has been having diarrhea as well as gas. His abdominal pain is currently a 9/10. Spoke with Dr. Jalloh about possible obstruction. He plans to do a colonoscopy. I also called his , Danica, and talked to her about the prognosis and plan. Exam Narrative: Exam Narrative: General: Well developed well nourished patient resting comfortably in bed in NAD HEENT: normocephalic Neck: supple Neuro: Alert and oriented x4 CV:RRR Resp:CTA Abd: Distended with significant pain to palpation in all areas. Positive bowel sounds Extremities: No swelling, erythema, or pain to palpation. Objective Data Vital Signs Vital Signs: Vital Signs - 24 hr 11/05/19 21:22 11/05/19 21:31 11/06/19 06:00 Temperature 98.3 F 97.6 F Pulse Rate 82 73 94 Respiratory Rate 16 18 16 Blood Pressure 163/90 H 181/109 H Pulse Oximetry 100 100 100 11/06/19 09:41 11/06/19 11:30 11/06/19 12:05 Temperature 98.7 F Pulse Rate 99 Respiratory Rate 18 Blood Pressure 175/103 H 176/104 H 170/100 H Pulse Oximetry 99 Intake/Output Intake/Output: Intake & Output 11/03/19 11/04/19 11/05/19 11/06/19 23:59 23:59 23:59 23:59 Intake Total 1000 3551 1431 Output Total 500 Balance 1000 3051 1431 Meds/Results Medications: Active Medications Generic Name Dose Route Start Last Admin Trade Name Freq PRN Reason Stop Dose Admin Acetaminophen 650 mg 11/05/19 14:28 11/05/19 19:09 Tylenol Tablet PO 650 mg Q4H PRN Administration Pain or Fever Amlodipine Besylate 5 mg 11/06/19 09:00 11/06/19 09:38 Norvasc PO 5 mg QAM CRISPIN Administration Hydralazine HCl 10 mg 11/06/19 08:13 11/06/19 11:31 Apresoline Hcl Inj IV PUSH 10 mg Q8H PRN Administration systolic >175 Sodium Chloride 1,000 mls @ 125 mls/hr 11/04/19 17:25 11/06/19 09:24 Normal Saline Iv IV CONT 125 mls/hr .Q8H CRISPIN Infusion Lactated Ringer's 1,000 mls @ 150 mls/hr 11/06/19 12:10 11/06/19 12:30 Lr - Lactated Ringers Iv IV CONT 150 mls/hr .Q6H40M CRISPIN Administration Iron Sucrose 500 mg/ Sodium 275 mls @ 78.571 mls/hr 11/07/19 09:00 Chloride
[2019-11-06] MEDS: ONDANSETRON INJ 4 MG/2 ML VIAL IV PUSH (16:30)
--- NOTE | 2019-11-06 16:41 | SUR.PHASEII ---
163 VOMITING YELLOWISH-GREEN FLUID AND INCONTINENT OF BOWEL. NOTIFIED DR. VELA AND ORDER RECEIVED FOR ZOFRAN 4MG IVP. JÚNIOR SEXTON.
--- NOTE | 2019-11-06 17:00 | PC.NURSE ---
Returned from GI lab per valeria.
--- NOTE | 2019-11-06 17:06 | ECG_ITS ---
Measurements Intervals [place] Rate: 96 P: 53 ME: 177 QRS: 24 QRSD: 89 T: 12 QT: 355 QTc: 450 Interpretive Statements SINUS RHYTHM BORDERLINE T WAVE ABNORMALITY- INFERIOR LEADS BASELINE ARTIFACT- V2 BORDERLINE ECG Electronically Signed On 11-07-2019 7:09:02 CDT by Andrew Shea D.O.
--- NOTE | 2019-11-06 17:29 | PC.NURSE ---
At patients bedside with Dr. Melgar. Patient denies any nausea at this time. Per Dr. Melgar DC order for NG tube placement at this time, and it is okay for patient to have clear liquids. Per Dr. Melgar if nausea/vomiting reoccurs place NG tube and place to low int suction. Patient agrees with MD orders. Will continue to monitor patient.
[2019-11-06] MEDS: metroNIDAZOLE 500 MG/ISO 100ML 500 MG/100 ML BAG 100 MG IVPB (18:11)
--- NOTE | 2019-11-06 18:30 | P.PNONC_ITS ---
Progress Note: A/P - Additional Plan Metastatic sigmoid colon cancer. Status post colonoscopy. Report noted. Pathology report is pending. Patient need to have MediPort placement prior to the discharge in preparation for chemotherapy as an outpatient. Iron deficiency anemia. Iron infusion has been ordered. Labs noted and hemo globin has improved. - Time Spent With Patient Total time spent is greater than 50% in coordination of care (as documented) at patient's floor/unit and/or counseling patient: 15 - 25 minutes Subjective Interval history: Metastatic sigmoid colon cancer Iron deficiency anemia Review of Systems - Review of Systems Patient came back from the colonoscopy and remains slightly drowsy. He has some abdominal cramping. Denies any bleeding. Denies any other complaints. - Neurologic Reports weakness, Denies syncope, Denies headache(s), Denies loss of vision, Denies numbness, Denies tingling, Denies tremor(s) Exam Vital signs: Temp Pulse Resp BP Pulse Ox 36.4 C L 98 16 160/86 H 100 11/06/19 17:00 11/06/19 17:00 11/06/19 17:00 11/06/19 17:00 11/06/19 17:00 Narrative: Lungs are clear to auscultation bilaterally Cardiovascular regular rate rhythm no murmurs Abdomen soft nontender nondistended bowel sounds are positive Extremities no edema PN: Objective Data - Labs CBC & Chem 7: 11/06/19 05:15 11/06/19 05:15 Labs: Laboratory Results - last 24 hr 11/05/19 11/06/19 11/06/19 07:05 05:15 05:15 WBC 16.1 H RBC 4.85 Hgb 9.3 L Hct 33.0 L MCV 68.0 L MCH 19.2 L MCHC 28.2 L RDW 24.1 H Plt Count 621 H MPV 9.2 Sodium 136 L Potassium 3.8 Chloride 103 Carbon Dioxide 23 BUN 14 Creatinine 0.70 Estim Creat Clear Calc 105 Estimated GFR > 60 Glucose 167 H Lactic Acid Calcium 8.9 % Saturation 11 L 11/06/19 11/06/19 09:35 17:08 WBC RBC Hgb Hct MCV MCH MCHC RDW Plt Count MPV Sodium Potassium Chloride Carbon Dioxide BUN Creatinine Estim Creat Clear Calc Estimated GFR Glucose Lactic Acid 2.6 H 2.0 Calcium % Saturation
[2019-11-06] MEDS: CIPROFLOXACIN 400 MG/D5W 200ML 200 ML 200 MG IVPB (19:18)
[2019-11-06] MEDS: IRON SUCROSE COMPLEX 500 MG in SODIUM CHLORIDE 0.9% IV 250 ML 78.6 MG IVPB (20:12)
[2019-11-07] MEDS: metroNIDAZOLE 500 MG/ISO 100ML 500 MG/100 ML BAG 100 MG IVPB ×2 (03:11→12:27)
[2019-11-07] MEDS: SODIUM CHLORIDE 0.9% IV 1,000 ML 125 ML IV CONT (03:11)
[2019-11-07 04:52] LABS: Hematocrit 27.7 % (42.0-52.0); Hemoglobin 7.9 g/dL (14.0-18.0); Mean Corpuscular HGB Conc 28.5 g/dl (32-36); Mean Corpuscular Volume 66.6 fl (80-100); Mean Platelet Volume 8.9 fl (7.4-10.4); Platelet Count Result 517 k/mm3 (150-375); Red Blood Count 4.16 M/mm3 (4.6-6.20); Red Cell Distribution Width 23.4 % (11.5-14.5); White Blood Count 14.6 K/mm3 (4.5-10.0)
[2019-11-07 05:10] LABS: Alanine Aminotransferase 13 U/L (4-50); Albumin Level 3.8 g/dL (3.5-5.1); Alkaline Phosphatase 100 U/L (38-126); Aspartate Amino Transferase 41 U/L (17-59); Bilirubin,Total 1.2 mg/dL (0.2-1.3); Blood Urea Nitrogen 15 mg/dL (9-20); Carbon Dioxide 24 mmol/L (22-30); Chloride 101 mmol/L (98-107); Estimated CRCL calculation 105 ml/min; Estimated Glomerular Filt Rate > 60; Glucose 121 mg/dL (75-110); Potassium 3.7 mmol/L (3.4-5.0); Sodium 134 mmol/L (137-145)
[2019-11-07 05:20] LABS: Platelet Estimate Adequate (Adequate)
[2019-11-07 05:21] LABS: Hypochromasia 1+ (NORMAL); Microcytosis 2+ (NORMAL)
[2019-11-07 05:26] LABS: Lactic Acid 1.1 mmol/L (0.7-2.1)
[2019-11-07] MEDS: CIPROFLOXACIN 400 MG/D5W 200ML 200 ML 200 MG IVPB (05:54)
[2019-11-07 06:00] VITALS: BP 142/92; PULSE 94; RESP 18; TEMP 37; O2SAT 98
[2019-11-07] MEDS: AMLODIPINE BESYLATE 5 MG TABLET PO (08:50)
[2019-11-07] MEDS: IRON SUCROSE COMPLEX 500 MG in SODIUM CHLORIDE 0.9% IV 250 ML 78.6 MG IVPB (08:54)
[2019-11-07 14:00] VITALS: BP 123/75; PULSE 102; RESP 18; TEMP 36.8; O2SAT 100
--- NOTE | 2019-11-07 14:22 | PM.DS ---
DS: Admitting Diagnosis Admitting Diagnosis Admitting Diagnosis: Malignant neoplasm of colon, unspecified DS: Discharge Diagnosis Discharge Diagnosis (1) Colonic mass: Code(s): K63.89 - Other specified diseases of intestine Status: Acute Assessment and Plan: -----patient has never had a colonoscopy before in his CEA is elevated. Colon mass bx consistent with colonic adenocarcinoma. CT shows mets to the liver. Plan to f/u with oncology for maintenance chemo. Disscussed with pt and family about poor prognosis. Likely colon cancer. Plan for colonoscopy and biopsy today. (2) Anemia: Qualifiers: Anemia type: unspecified type Qualified Code(s): D64.9 - Anemia, unspecified Code(s): D64.9 - Anemia, unspecified Status: Acute Assessment and Plan: -----likely due to colon cancer. Transfused earlier in the stay and not having any symptoms such as chest pain, lightheadedness or dizziness. f/u with hematology . (3) Metastases to the liver: Code(s): C78.7 - Secondary malignant neoplasm of liver and intrahepatic bile duct Status: Acute Assessment and Plan: ------Continue Heme-Onc recommendations. (4) Abnormal glucose: Code(s): R73.09 - Other abnormal glucose Status: Acute Assessment and Plan: -----prediabetic. DS: Summary Hospital Course Hospital Course: Pt is a 59y/o male who presented to the ED for abdominal pain found to have a new diagnosis of colon cancer with liver mets. Pt underwent a coonoscopy with mass bx which showed adenocarcioma. Dr. Guadarrama consulted and plans to start treatment after discharge. I spoke extensively with pt and family about diagnosis. He was educated about the worrisome signs and symptoms to come back to the ER for and was discharged in stable condition. Status at Discharge Functional status at discharge: independent ambulation Overall status at discharge: patient is back to baseline Time Spent with Patient Time attestation: Total time spent providing and/or coordinating discharge services:34 min Time spent: Greater than 30 minutes Exam Narrative: Exam Narrative: General: Well developed well nourished patient resting comfortably in bed in NAD HEENT: normocephalic Neck: supple Neuro: Alert and oriented x4 CV:RRR Resp:CTA Abd: Distended with significant pain to palpation in all areas. Positive bowel sounds Extremities: No swelling, erythema, or pain to palpation. DS: Data Data Completed and Pending Pending studies at discharge: Pending at discharge 11/06/19 16:16 Surgical [PTH] Routine Labs on day of discharge: Labs from last 24 hours 11/07/19 11/07/19 11/07/19 04:46 04:46 04:46 WBC 14.6 H RBC 4.16 L Hgb 7.9 L Hct 27.7 L MCV 66.6 L MCH 19.0 L MCHC 28.5 L RDW 23.4 H Plt Count 517 H MPV 8.9 Immature Gran % (Auto) Not Reportable Neut % (Auto) Not Reportable Lymph % (Auto) Not Reportable [place] % (Auto) Not Reportable Eos % (Auto) Not Reportable Baso % (Auto) Not Reportable Lymph # (Auto) Not Reportable [place] # (Auto) Not Reportable Eos # (Auto) Not Reportable Baso # (Auto) Not Reportable Abs Immat Gran (auto) Not Reportable Absolute Neuts (auto) Not Reportable Absolute Nucleated RBC Not Reportable Nucleated RBC % Not Reportable Platelet Estimate Adequate Hypochromasia 1+ Microcytosis 2+ Sodium 134 L Potassium 3.7 Chloride 101 Carbon Dioxide 24 BUN 15 Creatinine 0.70 Estim Creat Clear Calc 105 Estimated GFR > 60 Glucose 121 H Lactic Acid 1.1 Calcium 8.0 L Total Bilirubin 1.2 Direct Bilirubin 0.0 AST 41 ALT 13 Alkaline Phosphatase 100 Total Protein 8.0 Albumin 3.8 11/06/19 17:08 WBC RBC Hgb Hct MCV MCH MCHC RDW Plt Count MPV Immature Gran % (Auto) Neut % (Auto) Lymph % (Auto) [place] % (Auto) Eos
--- NOTE | 2019-11-07 14:28 | PM.PNGS ---
Progress Note: A&P Assessment and Plan (1) Colon cancer metastasized to liver: Code(s): C18.9 - Malignant neoplasm of colon, unspecified; C78.7 - Secondary malignant neoplasm of liver and intrahepatic bile duct Status: Acute Assessment and Plan: will discharge home on soft diet, plan to place port as outpt on Sunday am Subjective Subjective Date/Time Seen: 11/07/19 14:28 feels much better today, mirian full liquid diet and having good bowel fxn, pt denies any abd pain, n/v Review of Systems Constitutional: Constitutional: Reports fatigue, Reports lethargy and Reports weakness Cardiovascular: Cardiovascular: Denies chest pain and Denies palpitations Respiratory: Respiratory: Denies dyspnea Gastrointestinal: Gastrointestinal: Denies abdominal pain, Denies bloating, Denies nausea and Denies vomiting Exam Const: General: no acute distress Resp: Auscultation: clear to auscultation bilaterally Cardio: Rate: regular rate Rhythm: regular rhythm GI: Other: soft, decreased dist, NT Objective Data Vital Signs Vital Signs: Vital Signs - 24 hr 11/06/19 16:20 11/06/19 16:30 11/06/19 16:40 Temperature Pulse Rate 88 111 H 94 Respiratory Rate 26 H 28 H 20 Blood Pressure 132/84 137/92 H 132/84 Pulse Oximetry 100 99 99 11/06/19 17:00 11/06/19 22:00 11/07/19 06:00 Temperature 36.4 C L 36.2 C L 37.0 C Pulse Rate 98 97 94 Respiratory Rate 16 18 18 Blood Pressure 160/86 H 154/89 H 142/92 H Pulse Oximetry 100 99 98 Intake/Output Intake/Output: Intake & Output 11/04/19 11/05/19 11/06/19 11/07/19 23:59 23:59 23:59 23:59 Intake Total 1000 3551 2639 945 Output Total 500 3 Balance 1000 3051 2639 942 Meds/Results Medications: Active Medications Generic Name Dose Route Start Last Admin Trade Name Freq PRN Reason Stop Dose Admin Acetaminophen 650 mg 11/05/19 14:28 11/05/19 19:09 Tylenol Tablet PO 650 mg Q4H PRN Administration Pain or Fever Amlodipine Besylate 5 mg 11/06/19 09:00 11/07/19 08:50 Norvasc PO 5 mg QAM CRISPIN Administration Hydralazine HCl 10 mg 11/06/19 08:13 11/06/19 11:31 Apresoline Hcl Inj IV PUSH 10 mg Q8H PRN Administration systolic >175 Sodium Chloride 1,000 mls @ 125 mls/hr 11/04/19 17:25 11/07/19 05:58 Normal Saline Iv IV CONT 125 mls/hr .Q8H CRISPIN Infusion Iron Sucrose 500 mg/ Sodium 275 mls @ 78.571 mls/hr 11/07/19 09:00 11/07/19 08:54 Chloride IVPB 11/09/19 09:01 78.6 mls/hr QAM CRISPIN Administration Ciprofloxacin/Dextrose 200 mls @ 200 mls/hr 11/06/19 18:00 11/07/19 07:00 Cipro 400 Mg/D5w 200 Ml IVPB Infused Q12H CRISPIN Infusion Metronidazole 500 mg in 100 mls @ 100 mls/hr 11/06/19 19:00 11/07/19 12:27 Flagyl 500 Mg/Iso Soln 100 Ml IVPB 100 mls/hr Q8H CRISPIN Administration Morphine Sulfate 2 mg 11/06/19 09:03 11/06/19 09:36 Morphine Sulfate Inj IV PUSH 2 mg Q2H PRN Administration Pain Rated 7-10 Radiology Results: ITS Impressions Abdomen/Pelvis CT 11/04/19 16:50 IMPRESSION: 1. Sigmoid colonic mass causing low-grade obstruction with moderate to large amount of stool proximal to this. Small round perisigmoid lymph nodes, likely positive for malignancy. 2. Liver metastatic disease. Chest X-Ray 11/06/19 09:22 IMPRESSION: 1. No acute cardiopulmonary abnormality. Labs Labs: Laboratory Results - last 24 hr 11/06/19 11/07/19 11/07/19 17:08 04:46 04:46 WBC 14.6 H RBC 4.16 L Hgb 7.9 L Hct 27.7 L MCV 66.6 L MCH 19.0 L MCHC 28.5 L RDW 23.4 H Plt Count 517 H MPV 8.9 Immature Gran % (Auto) Not Reportable Neut % (Auto) Not Reportable Lymph % (Auto) Not Reportable [place] % (Auto) Not Reportable Eos % (Auto) Not Reportable Baso % (Auto) Not Reportable Lymph # (Auto) Not Reportable [place] # (Auto) Not Reportable Eos # (Auto) Not Reportable Baso # (Auto) Not Reportable Abs Immat Gran (a
--- NOTE | 2019-11-07 16:05 | PC.NURSE ---
Patient to be discharged. Patients diet increased to soft and patient was able to tolerate well. Patient was able to eat and had eaten so his procedure was moved to Sunday at 0730. Information given to the patient.
[2019-11-08 14:51] LABS: SARS-CoV-2 RNA PCR Negative
== END 2019-11-07 16:21 | disposition home or self-care (01) | DRG 240 ==
LOC: ANHED 17:25 → ANH2MED 18:09
PROVIDERS: Family Medicine; Internal Medicine Gastroenterology; Internal Medicine Hematology & Oncology; Physician Assistant; Surgery; Admitting Provider Internal Medicine; Emergency Provider Emergency Medicine; Visit Provider Internal Medicine
PROC: 0DJD8ZZ Inspection of Lower Intestinal Tract, Via Natural or Artificial Opening Endoscopic (ICD-10-PCS; CPT 45378; principal; 2019-11-06 13:00)
DX: C18.7 Malignant neoplasm of sigmoid colon (principal); C78.7 Secondary malignant neoplasm of liver and intrahepatic bile duct; D50.0 Iron deficiency anemia secondary to blood loss (chronic); D63.0 Anemia in neoplastic disease; F17.210 Nicotine dependence, cigarettes, uncomplicated; K52.9 Noninfective gastroenteritis and colitis, unspecified; R73.09 Other abnormal glucose; Z79.82 Long term (current) use of aspirin; Z79.899 Other long term (current) drug therapy; Z11.59 Encounter for screening for other viral diseases
CPT/HCPCS: 36415; 36430; 71046; 74177; 80048; 80053; 80076; 81003; 82274; 82378; 82728; 83036; 83540; 83550; 83605; 83690; 85014; 85018; 85025; 85027; 86850; 86900; 86901; 86923; 87635; 88305; 93005; 96361; 96374; 96375; 99285; A9270; C9803; G0378; G0379; J0360; J0744; J1756; J1885; J2270; J2405; J2704; J7030; J7050; J7120; P9016; Q9967; U0003

== ENCOUNTER 2019-11-10 00:27 | Day surgery (SDC) | payer OTHER, SELFPAY ==
--- NOTE | ~2019-11-10 | XR_ITS ---
XR chest port-a-cath/central DATE: 11/10/2019 08:29 INDICATION: Port-A-Cath insertion TECHNIQUE: Portable upright AP chest on 11/10/2019 at 0829 hours COMPARISON: 11/05/2021 view chest FINDINGS: There is interval placement of a left Port-A-Cath, the catheter tip overlying the superior cavoatrial junction. There is no evidence of pneumothorax or pleural effusion or pulmonary infiltrate or consolidation. Heart size appears normal. IMPRESSION: Left subclavian Port-A-Cath placement, catheter tip overlying superior cavoatrial junctio n No active cardiopulmonary disease Reviewed, dictated and finalized at [facility]. Reviewed, dictated and finalized at location A. IMPRESSION: Left subclavian Port-A-Cath placement, catheter tip overlying super ior cavoatrial junction No active cardiopulmonary disease
--- NOTE | ~2019-11-10 | XR_ITS ---
EXAMINATION: XR fl guide central line place DATE: 11/10/2019 08:09 INDICATION: Port placement. TECHNIQUE: 2 intraoperative fluoroscopic views of the chest were obtained. I was not present. Fluoros copy exposure time was 24 seconds. COMPARISON: Chest single view 11/10/2019 FINDINGS: There is a left subclavian port with tip at superior cavoatrial junction. IMPRESSION: 1. Port tip at superior cavoatrial junction. Reviewed, dictated and finalized at location A.
[2019-11-10 06:45] VITALS: BMI 30.4
[2019-11-10 06:56] VITALS: BP 122/76; PULSE 78; RESP 16; TEMP 36.1; O2SAT 100
--- NOTE | 2019-11-10 06:58 | WPDANESEPPF ---
Anes - Initial Pre Proc Eval Procedure: Operation Date: 11/10/19 07:30 Proposed Procedures p Insertion Alejandro Cath - Estephanie Melgar MD Date/Time: 11/10/19 06:58 Surgeon: Estephanie Melgar MD Pre Op Diagnosis: Colon Ca Patient Data Age: 59 Gender: M Height: Weight: Allergies Allergy/AdvReac Type Severity Reaction Status Date / Time No Known Allergies Allergy Verified 11/04/19 15:10 Home Medications Medication Instructions Recorded Confirmed Type acetaminophen [Tylenol] 650 mg PO PRN PRN 11/04/19 11/04/19 History aspirin 325 mg PO BID 11/04/19 11/04/19 History amlodipine [Norvasc] 5 mg PO QAM #30 tablet 11/07/19 Rx ciprofloxacin HCl 500 mg PO Q12H #6 tablet 11/07/19 Rx metronidazole [Flagyl] 500 mg PO Q8H 6 Days #18 tablet 11/07/19 Rx Patient hx anesthesia problems: none Family hx anesthesia problems: none PMFSH Past Medical History Medical History (Updated 11/10/19 @ 07:00 by Angel Natarajan MD) Colon cancer Colon cancer metastasized to liver Colonic mass Iron deficiency anemia due to chronic blood loss Obesity Patient denies significant medical history Pre-diabetes Surgical History Surgical History (Updated 11/06/19 @ 18:36 by Gabe Guadarrama MD) No significant past surgical history Social History Social History Smoking status: Current some day smoker Tobacco type: cigars Additional smoking assessment comments: Smokes 1-3 cigarillos every other day Alcohol intake: former Substance use: never Substance use type: does not use Additional living arrangements comments: Lives with his . They have three children. Additional occupation/education comments: Works as a [employer]. Currently not working due to COVID pandemic. Gender identity (if verbalized by the patient): Male Spiritual care concerns: No Anes - Eval Final PreProcedure Day of Procedure 11/10/19 06:58 Patient weight: obese Heart: regular rate and rhythm Lungs: clear to auscultation and normal air movement Airway: Mallampati scale class II Neurological: alert and oriented Last oral intake: >/= 8 hours ASA classification: III Emergent: no Anesthetic plan: proceed Anesthesia type and monitoring: general GIVS Informed Consent: The patient's anesthetic plan and its attendant risks and benefits were discussed with the patient/family/POA. Questions were solicited and answers provided to the satisfaction of the patient/family/POA.
--- NOTE | 2019-11-10 07:26 | WPDHPUPDATE1 ---
History and Physical Update Update Date/Time: 11/10/19 07:26 History and Physical has been reviewed, including an updated exam of the patient. There are NO changes in the patient's condition. Risks, benefits, and alternatives have been discussed and questions answered. Patient agrees to proceed with procedure.
[2019-11-10] MEDS: ceFAZolin 2 GM/D5W 50 ML 2 GM/50 ML BAG IVPB (07:33)
[2019-11-10] MEDS: BUPIVACAINE/EPINEPHRINE 0.5% 30 ML VIAL INFILTRATE (07:33)
[2019-11-10] MEDS: HEPARIN SODIUM 5,000 UNITS/ML VIAL 5000 UNITS IRRIGATION (07:33)
--- NOTE | 2019-11-10 07:55 | SUR.PREOP ---
0645-PT STATES NO CHANGE IN ASSESSMENT SINCE DISCHARGE ON SUNDAY.
[2019-11-10] MEDS: LACTATED RINGERS 1,000 ML 30 ML IV CONT (08:00)
[2019-11-10] MEDS: HEPARIN SODIUM, PORCINE 10,000 UNITS/10 ML VIAL 3 UNITS IV PUSH (08:09)
[2019-11-10 08:22] VITALS: BP 91/57; PULSE 64; RESP 15; TEMP 36.1; O2SAT 100
--- NOTE | 2019-11-10 08:24 | SUR.OPER ---
ebl:[id number]
--- NOTE | 2019-11-10 08:27 | SUR.PHASEI ---
0822- xray here to to take chest xray
[2019-11-10 08:39] VITALS: BP 95/61; PULSE 61; RESP 15; O2SAT 100
[2019-11-10 08:55] VITALS: BP 117/76; PULSE 65; RESP 15; O2SAT 100
[2019-11-10 09:05] VITALS: BP 119/95; PULSE 73
--- NOTE | 2019-11-10 09:16 | PM.PROC ---
Procedure Note - Detailed Date of procedure: 11/10/19 Pre-op diagnosis: Colon Ca Post-op diagnosis: same Procedure performed: placement of left subclavian venous access device under fluroscopic guidance Description of procedure: Patient was brought into the operating room and placed in the supine position. After adequate induction of mac anesthesia, the patient was prepped and draped in normal sterile fashion. Time-out was then done to verify the patient's identity, as well as the procedure being performed. I began by making a small incision in the left chest, I then gained access into the left subclavian vein with an 18 gauge needle. I then placed the guidewire into the vein and confirmed placement via fluoroscopic guidance. I then locally anesthetized the area in the left chest. I then enlarged the incision around the guidewire including making a subcutaneous pocket inferiorly to allow placement of the port itself. I then placed a dilating sheath over the guidewire into the left subclavian vein via sterile Seldinger technique. This was once again done and confirmed via fluoroscopic guidance. I then removed the dilator and the guidewire, now just leaving the sheath in the vein. I then fed the previously flushed catheter into the left subclavian vein under fluoroscopic guidance. At approximately 20 cm, the catheter was noted to be near the atrial caval junction. I then peeled away the sheath, now just leaving the catheter in the vein. I then was able to easily draw and flush from the catheter. The catheter was cut to fit and attached to the port itself. The port was placed into the previously made subcutaneous pocket and sutured in with 0 Ethibond suture. Final fluoroscopic view showed the termination of the catheter at the atrial caval junction with a nice smooth curvature back to the port itself. I was able to gain access to the port with a James needle and was able to easily draw and flush from the port. I then flushed 4 cc of a final heparin flush into the port. The incision was closed with 3 0 Vicryl suture in the subcutaneous tissue and the skin was closed with 4 O Monocryl subcuticular suture. Dermabond was then placed on wound. The patient tolerated the procedure well and will be sent to the recovery room in stable condition. Implants: L SCV VAD Anesthesia: MAC and local Surgeon: Estephanie Melgar MD Estimated blood loss (mL): 5 Drains: No Packing: No Pathology: none sent Complications: No immediate complications Condition: stable Disposition: PACU Findings: placement of L SCV VAD via 1st stick
--- NOTE | 2019-11-10 09:22 | SUR.PHASEII ---
0922 called and updated pt's daughter
[2019-11-10 09:35] VITALS: BP 127/77; PULSE 69
== END 2019-11-10 09:50 | disposition home or self-care (01) ==
PROVIDERS: PCP Internal Medicine Hematology & Oncology; Visit Provider Surgery
PROC: (CPT 36561; principal; 2019-11-10 07:30)
DX: C18.9 Malignant neoplasm of colon, unspecified (principal); C78.7 Secondary malignant neoplasm of liver and intrahepatic bile duct; D50.0 Iron deficiency anemia secondary to blood loss (chronic); R73.03 Prediabetes; E66.9 Obesity, unspecified; Z68.30 Body mass index [BMI] 30.0-30.9, adult; Z79.82 Long term (current) use of aspirin; F17.290 Nicotine dependence, other tobacco product, uncomplicated
CPT/HCPCS: 36561; 77001; C1788; J0690; J1100; J1644; J2250; J2405; J2704; J3010; J7030; J7120

== ENCOUNTER 2019-12-16 17:08 | Inpatient (IN) | payer OTHER, SELFPAY ==
--- NOTE | ~2019-12-16 | CT_ITS ---
EXAMINATION: CT brain wo con DATE: 12/16/2019 18:47 INDICATION: Vomiting. Colon cancer. Evaluate for metastases. TECHNIQUE: Computed tomography (CT) of the head was performed without intravenous contrast. The dose- length product was 681.00 mGy-cm. The mA was adjusted according to patient size. Iterative reconstruc tion technique was employed. COMPARISON: None FINDINGS: No acute intracranial hemorrhage, infarction, mass or mass effect. No ventriculomegaly or m idline shift. Basilar cisterns are patent. Generalized atrophy. No depressed skull fractures. Paranas al sinuses and mastoids are pneumatized. IMPRESSION: 1. No acute intracranial abnormality. Reviewed, dictated and finalized at location A.
--- NOTE | ~2019-12-16 | XR_ITS ---
EXAMINATION: XR abdomen/kub 1V DATE: 12/18/2019 05:49 INDICATION: Ileus versus small bowel obstruction TECHNIQUE: A supine view of the abdomen was obtained. COMPARISON: None. FINDINGS: There are multiple gas-filled but not frankly dilated loops of small bowel throughout the abdomen. Sm all amount of gas scattered throughout the colon. Suggestion of some haustral fold thickening at the hepatic flexure of the colon which could be seen with colitis. No pneumatosis. Bones are unremarkable . IMPRESSION: 1. Nonspecific bowel gas pattern which could be related to ileus or resolving small bowel obstruction . 2. Suggestion of haustral fold thickening at the hepatic flexure of the colon consistent with colitis . Reviewed, dictated and finalized at location A. IMPRESSION: 1. Nonspecific bowel gas pattern which could be related to ileus or resolving s mall bowel obstruction. 2. Suggestion of haustral fold thickening at the hepatic flexure of the colon c onsistent with colitis.
--- NOTE | ~2019-12-16 | CT_ITS ---
EXAMINATION: CT abdomen pelvis w con DATE: 12/16/2019 18:47 INDICATION: Vomiting. Ileus on chest x-ray. TECHNIQUE: Computed tomography (CT) of the abdomen and pelvis was performed with 100 cc Omnipaque 350 intravenous contrast. The dose-length product was 866.76 mGy-cm. Automated exposure control and iter ative reconstruction technique were employed. COMPARISON: CT dated 11/04/2019. FINDINGS: Heart size normal. No significant pleural or pericardial effusion. There are innumerable hy povascular masses throughout the liver, consistent with metastases. The spleen, pancreas, adrenal gla nds and kidneys are unremarkable. There has been interval development of significant abnormal thickening of the descending colon, sigmo id colon and rectum. There is low density soft tissue along the left lateral margin of the rectum whi ch may represent malignancy with adjacent phlegmonous change. The spleen, pancreas, adrenal glands and kidneys are unremarkable. There is also abnormal thickening of the distal small bowel extending to the terminal ileum which causes functional obstruction. Transi tion is identified in the right mid abdomen on images 79-135. There are dilated small bowel loops in the upper abdomen with air-fluid levels IMPRESSION: 1. Abnormal focal thickening of the distal sigmoid colon/rectum with adjacent phlegmonous change whic h may represent the site of malignancy. There is a long segment of abnormally thickened distal colon as well as distal small bowel, most likely infectious, although metastatic disease is not excluded. 2: Small bowel obstruction secondary to abnormal thickening of the distal small bowel with transition in the right mid abdomen. 3: Widespread liver metastases. Due to the extensive liver abnormality is difficult to determine if t here has been significant interval change. Reviewed, dictated and finalized at location A. IMPRESSION: 1. Abnormal focal thickening of the distal sigmoid colon/rectum with adjacent p hlegmonous change which may represent the site of malignancy. There is a long s egment of abnormally thickened distal colon as well as distal small bowel, most likely infectious, although metastatic disease is not excluded. 2: Small bowel obstruction secondary to abnormal thickening of the distal small bowel with transition in the right mid abdomen. 3: Widespread liver metastases. Due to the extensive liver abnormality is diffi cult to determine if there has been significant interval change.
--- NOTE | ~2019-12-16 | XR_ITS ---
XR abdomen NG/feed tube insert INDICATION: Evaluate NG tube position. TECHNIQUE: Limited KUB perform for evaluating NG tube . COMPARISON: No prior studies for comparison. FINDINGS: NG tube tip in the stomach. Visualized bowel gas pattern is nonspecific. IMPRESSION: 1: NG tube tip in the stomach. Reviewed, dictated and finalized at location A.
--- NOTE | ~2019-12-16 | XR_ITS ---
EXAMINATION: XR chest 2V 12/16/2019 18:02 INDICATION: Weakness. History of cancer. PROCEDURE: AP upright view of the chest COMPARISON: 11/10/2019 FINDINGS: The lungs are clear. The cardiomediastinal silhouette is within normal limits. There are no pleural effusions. There is no pneumothorax suspected. Left subclavian port catheter tip in the SVC. There are dilated small bowel loops in the upper abdomen, suspicious for obstruction versus ileu s. IMPRESSION: 1: NO ACUTE CARDIOPULMONARY DISEASE. 2: Dilated small bowel loops in the upper abdomen, ileus versus obstruction. Reviewed, dictated and finalized at location A.
[2019-12-16 17:17] VITALS: BP 127/87; PULSE 118; RESP 24; O2SAT 96
--- NOTE | 2019-12-16 17:20 | ECG_ITS ---
Measurements Intervals [place] Rate: 118 P: 45 MN: 140 QRS: 45 QRSD: 86 T: 18 QT: 317 QTc: 446 Interpretive Statements SINUS TACHYCARDIA POSSIBLE LEFT ATRIAL ENLARGEMENT BORDERLINE T WAVE ABNORMALITY- INFERIOR LEADS ABNORMAL ECG Electronically Signed On 12-16-2019 18:56:39 CDT by Andrew Shea D.O.
--- NOTE | 2019-12-16 17:28 | PC.NURSE ---
continued liter of NS per EMS
--- NOTE | 2019-12-16 17:45 | PC.NURSE ---
patient unable to urinate. refusing straight cath at this time.
[2019-12-16 17:54] LABS: Hemoglobin 9.9 g/dL (14.0-18.0); Mean Corpuscular HGB Conc 30.9 g/dl (32-36); Mean Corpuscular Hemoglobin 23.3 pg (26-34); Mean Corpuscular Volume 75.3 fl (80-100); Mean Platelet Volume 9.6 fl (7.4-10.4); Platelet Count Result 325 k/mm3 (150-375); Red Blood Count 4.25 M/mm3 (4.6-6.20)
[2019-12-16] MEDS: ONDANSETRON INJ 4 MG/2 ML VIAL IV PUSH (18:06)
[2019-12-16] MEDS: FAMOTIDINE 20 MG/2 ML VIAL IV PUSH (18:06)
[2019-12-16] MEDS: SODIUM CHLORIDE 0.9% IV 1,000 ML 999 ML IV CONT (18:06)
[2019-12-16 18:07] LABS: Lactic Acid Reflex 1.5 mmol/L (0.7-2.1)
[2019-12-16 18:09] LABS: Alanine Aminotransferase 18 U/L (4-50); Albumin Level 3.8 g/dL (3.5-5.1); Alkaline Phosphatase 140 U/L (38-126); Aspartate Amino Transferase 23 U/L (17-59); Blood Urea Nitrogen 13 mg/dL (9-20); Calcium 8.4 mg/dL (8.4-10.2); Carbon Dioxide 22 mmol/L (22-30); Chloride 97 mmol/L (98-107); Estimated CRCL calculation 99 ml/min; Estimated Glomerular Filt Rate > 60; Glucose 185 mg/dL (75-110); Potassium 4.2 mmol/L (3.4-5.0); Sodium 130 mmol/L (137-145)
[2019-12-16 18:10] LABS: White Blood Count 1.8 K/mm3 (4.5-10.0)
[2019-12-16 18:14] LABS: Band Neutrophils Percent 12 % (0-6); Lymphocytes Absolute Manual 0.72 K/mm3 (1.1-4.5); Monocytes Absolute Manual 0.21 K/mm3 (0.1-0.90); Monocytes Percent Manual 12 % (3-9); Neutrophils Absolute Manual 0.86 K/mm3 (1.3-6.7); Neutrophils Percent Manual 36 % (46-73); Total Cells Counted 50
[2019-12-16 18:15] LABS: Platelet Estimate Adequate (Adequate)
[2019-12-16 18:16] LABS: Anisocytosis 3+ (NORMAL); Hypochromasia 1+ (NORMAL)
--- NOTE | 2019-12-16 18:22 | ED.WEAKNESS ---
HPI - Weakness General Chief complaint: Weakness Stated complaint: weakness Time Seen by Provider: 12/16/19 17:49 History of Present Illness HPI Narrative: Patient presents with vomiting. He last vomited at 5 PM. He had his last chemotherapy for the colon cancer a week ago. He has nausea now but does not feel like more vomiting. He says he has no pain. Said he is passing his stools, without having diarrhea. He is slow to answer questions, and answers with short phrases. Complaint: generalized weakness Onset (ago): hour(s) Duration: constant Location: generalized Related Data Home Medications Medication Instructions Recorded Confirmed acetaminophen-codeine PO 12/16/19 acyclovir 12/16/19 docusate sodium [Colace] 200 mg PO BID 12/16/19 lorazepam 12/16/19 potassium chloride meq PO 12/16/19 sucralfate 12/16/19 Allergies Allergy/AdvReac Type Severity Reaction Status Date / Time No Known Allergies Allergy Verified 12/16/19 17:19 Review of Systems Review of Systems: Narrative: CONSTITUTIONAL: Denies fever, chills, or sweats. EYES: Denies visual changes, redness, or discharge. ENT: Denies rhinorrhea, congestion, sore throat, or otalgia. CARDIOVASCULAR: Denies chest pain, palpitations, or edema. RESPIRATORY: Denies cough or dyspnea. GASTROINTESTINAL: Denies abdominal pain, but does have nausea, vomiting, GENITOURINARY: Denies dysuria or hematuria. SKIN: Denies rash or itching. MUSCULOSKELETAL: Denies back pain, joint pain, or myalgia. NEUROLOGIC: He has weakness. FOR[facility]LY [facility] Past Medical History Medical History Colon cancer Colon cancer metastasized to liver Colonic mass Iron deficiency anemia due to chronic blood loss Obesity Patient denies significant medical history Pre-diabetes Surgical History Surgical History No significant past surgical history Social History Social History Smoking status: Current some day smoker Tobacco type: cigars Additional smoking assessment comments: Smokes 1-3 cigarillos every other day Alcohol intake: former Substance use: never Substance use type: does not use Additional living arrangements comments: Lives with his . They have three children. 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 Gender identity (if verbalized by the patient): Male Spiritual care concerns: No Exam Narrative: Exam Narrative: GENERAL: Well-appearing, well-nourished, and in no acute distress. HEAD: Normocephalic, atraumatic. EYES: PERRLA and EOMI. ENT: Nares clear, no rhinorrhea or epistaxis. Mucous membranes moist. NECK: Supple. CHEST: Clear to auscultation. No respiratory distress. HEART: Regular rate and rhythm. No murmur heard. Normal peripheral pulses. ABDOMEN: Soft, nontender, nondistended, normal active bowel sounds. EXTREMITIES: Normal range of motion. No edema. SKIN: Warm, dry, no rash. NEURO: No focal deficits. Alert and oriented x3. PSYCH: Flat affect and slow speech. Course Consultations Consultation #1: Call Dr. Juarez for consult for small bowel obstruction. Dr. Juarez says to put the consult under Dr. Melgar who saw him last week. Date: 12/16/19 Time: 19:48 Consultation #2: Call Dr. Randall for hospitalization for small bowel obstruction. He accepts the patient. Date: 12/16/19 Time: 19:48 Consultation #3: Dr. Arrieta will look at the KUB after the NG is in place. Date: 12/16/19 Time: 20:07 Vital Signs Vital signs: Vital Signs Pulse Rate 118 H 12/16/19 17:17 Respiratory Rate 24 H 12/16/19 17:17 Blood Pressure 127/87 12/16/19 17:17 Pulse Oximetry 96 12/16/19 17:17 Pulse Rate 118 H 12/16/19 17:17 Respiratory Rate 24 H 12/16/19 17:17 Blood Pressure 127/87 12/16/19 17:17 Pulse Oximetry 96 12/16/19 17:17
[2019-12-16 20:09] VITALS: BP 140/83; PULSE 113; O2SAT 98
--- NOTE | 2019-12-16 20:39 | PM.IMHP ---
H&P: HPI History of Present Illness Chief complaint: small bowel obstruction, colon cancer Narrative: This is a 59 year old male well known to me from a recent hospitalization with known metastatic colon cancer who presented to the ER tonight with a complaint of nausea and vomiting today. He also suffered a fall in the bathroom today which his believes is due to increased generalized weakness. The patient apparently did not lose consciousness although no one is sure if he suffered any head trauma. The pateint has had multiple episodes of nausea and vomiting today. The patient is currently undergoing chemotherapy with Dr. Sauer for his colon cancer and his last treatment was approximately 1 week ago. He has had increased weight loss and generalized weakness since starting chemotherapy. He has not had any fevers, chills, abdominal pain or diarrhea today. The patient was evaluated in the ER tonight and found to have a small bowel obstruction secondary to abnormal thickening of the distal small bowel with transition in the right mid abdomen. ER provider has consulted general surgery. NG tube has been placed. The patient has no other complaints. Review of Systems Review of Systems: All systems reviewed & are unremarkable except as noted in HPI and below PMFSH Past Medical History Medical History Colon cancer Colon cancer metastasized to liver Colonic mass Iron deficiency anemia due to chronic blood loss Obesity Patient denies significant medical history Pre-diabetes Surgical History Surgical History No significant past surgical history Family History Family History Other Diabetes mellitus Heart disease Social History Social History Smoking status: Current some day smoker Tobacco type: cigars Additional smoking assessment comments: Smokes 1-3 cigarillos every other day Alcohol intake: former Substance use: never Substance use type: does not use Additional living arrangements comments: Lives with his . They have three children. Additional occupation/education comments: Works as a [employer] Currently not working due to COVID pandemic. Gender identity (if verbalized by the patient): Male Spiritual care concerns: No Meds Home Medications and Allergies Home Medications Medication Instructions Recorded Confirmed Type acetaminophen-codeine PO 12/16/19 History acyclovir 12/16/19 History docusate sodium [Colace] 200 mg PO BID 12/16/19 History lorazepam 12/16/19 History potassium chloride meq PO 12/16/19 History sucralfate 12/16/19 History Allergies Allergy/AdvReac Type Severity Reaction Status Date / Time No Known Allergies Allergy Verified 12/16/19 17:19 Vital Signs Vital Signs - 24 hr 12/16/19 17:17 12/16/19 20:09 Pulse Rate 118 H 113 H Respiratory Rate 24 H Blood Pressure 127/87 140/83 Pulse Oximetry 96 98 Exam Const: General: cooperative, awake, anxious, ill appearing chronically and uncomfortable Nutritional Appearance: overweight Orientation/consciousness: oriented to person and oriented to place HENMT: Head: normal to inspection General nose exam: Normal external nose present Face and sinus: normal facial exam Mouth: Yes Normal oral and palatal mucosa present and Yes oropharynx normal Eyes: Pupils: Equal, round and reactive pupils present EOM: EOMs intact bilaterally Neck: Neck: supple and no JVD Thyroid: thyroid normal Lymphatic: lymphadenopathy not noted Resp: Effort & Inspection: normal respiratory effort Auscultation: clear to auscultation bilaterally Cardio: Rate: regular rate Rhythm: regular rhythm Heart sounds: no murmurs GI: Inspection: normal to inspection and non-distended GI Palp: No abdominal tenderness Auscu
--- NOTE | 2019-12-16 21:10 | ADMGEN ---
This patient, Jeff Duke, was admitted to 3 Medical Room 346-01. Patient/family oriented to hospital policies and general routines including ID bracelet, bed and alarms, visiting hours, pain management, procedures, bathroom and other care routines, personal items, smoking policy, room service/diet, and visiting hours. Valuables list has been completed. Information on how to activate the Rapid Response Team has been discussed. Patient/Family are encouraged to report perceived risks to care and to ask questions if they do not understand what they are told or what they should do.
[2019-12-16 21:21] VITALS: BP 147/79; PULSE 22; RESP 22; TEMP 37.5; O2SAT 99
[2019-12-16 21:22] VITALS: BMI 27.6
[2019-12-16] MEDS: DEXTROSE 5%/0.9% SOD CHL 1,000 ML 100 ML IV CONT (21:29)
[2019-12-16 22:02] VITALS: BP 114/78; PULSE 79; O2SAT 93
[2019-12-17 01:48] LABS: Glucose Point of Care 203 (65-105)
[2019-12-17] MEDS: INSULIN ASPART (*BKC) 100 UNITS/ML SUB-Q (01:53)
[2019-12-17 05:36] LABS: Glucose Point of Care 169 (65-105)
[2019-12-17 05:55] LABS: Hematocrit 27.5 % (42.0-52.0); Hemoglobin 8.4 g/dL (14.0-18.0); Immature Granulocyte Absolute 0.01 K/mm3 (0.00-0.031); Immature Granulocyte Percent A 0.5 % (0-0.5); Lymphocytes Percent Auto 29.4 % (18.3-44.2); Mean Corpuscular HGB Conc 30.5 g/dl (32-36); Mean Corpuscular Hemoglobin 23.1 pg (26-34); Mean Corpuscular Volume 75.8 fl (80-100); Mean Platelet Volume 9.3 fl (7.4-10.4); Monocytes Absolute Auto 0.4 K/mm3 (0.1-0.6); Monocytes Percent Auto 19.6 % (2.6-8.5); Neutrophils Percent Auto 48.5 % (45.5-73.1); Platelet Count Result 306 k/mm3 (150-375); Red Blood Count 3.63 M/mm3 (4.6-6.20)
[2019-12-17 06:00] VITALS: BP 121/70; PULSE 103; RESP 18; TEMP 37; O2SAT 99
[2019-12-17 06:09] LABS: Blood Urea Nitrogen 13 mg/dL (9-20); Calcium 7.8 mg/dL (8.4-10.2); Carbon Dioxide 22 mmol/L (22-30); Chloride 104 mmol/L (98-107); Estimated CRCL calculation 81 ml/min; Estimated Glomerular Filt Rate > 60; Glucose 158 mg/dL (75-110); Magnesium 1.8 mg/dL (1.6-2.3); Potassium 3.4 mmol/L (3.4-5.0); Sodium 132 mmol/L (137-145)
[2019-12-17 06:33] LABS: Anisocytosis 1+ (NORMAL); Hypochromasia 1+ (NORMAL); Platelet Estimate Adequate (Adequate)
[2019-12-17] MEDS: DEXTROSE 5%/0.9% SOD CHL 1,000 ML 100 ML IV CONT ×2 (06:37→17:41)
--- NOTE | 2019-12-17 09:42 | PM.CNGS ---
Assessment and Plan Assessment and plan (1) Enterocolitis: Code(s): K52.9 - Noninfective gastroenteritis and colitis, unspecified Status: Acute Assessment and Plan: This patient has known metastatic colon cancer with a partially-obstructing sigmoid colon mass. He now presents with nausea and vomiting with findings on his CT suggesting possible small bowel obstruction with wall thickening of the distal ileum and extending through the colon to the sigmoid mass. I discussed the patient's case with Dr. Juarez who reviewed the CT scan with the Radiologist thoroughly. There does not appear to be an obstruction at the level of the colonic mass. He does appear to have enterocolitis with small bowel wall thickening from the distal ileum extending throughout the colon to the sigmoid mass, which is the cause of the dilated loops of small bowel suggesting a possible small bowel obstruction. The patient has already started to clinically improve, although he has had very little NG output. The NG tube does appear to be in place on the x-ray. We will continue NG tube decompression, bowel rest, IV fluids, and analgesics for now and likely consider a Gastrografin small-bowel follow-through within the next few days to further assess the suggestion of a small bowel obstruction. The etiology for the enterocolitis is unclear and could be related to an infectious or inflammatory etiology, or this could be related to side effects of his chemotherapy. The wall thickening appears to be less likely due to ischemia because of the continuous segment of wall thickening throughout the distal small bowel and nearly entire colon, as well as looking at the patient clinically. There is no indication at this time for surgical intervention. We will also consult Gastroenterology and Oncology for their recommendations. With his neutropenia and immunosuppressed state, could consider empiric IV antibiotic therapy for an infectious etiology. I discussed the patient's case with the hospitalist as well. Hopefully, the patient will continue to improve with medical treatment. Thank you for allowing us to see the patient in consultation and we will continue to follow along with you. (2) Colon cancer: Qualifiers: Colon location: unspecified part of colon Qualified Code(s): C18.9 - Malignant neoplasm of colon, unspecified Code(s): C18.9 - Malignant neoplasm of colon, unspecified Status: Chronic Assessment and Plan: Known sigmoid mass with pathology showing colonic adenocarcinoma found in October of 2019. This mass is not causing a high-grade colonic obstruction at this time. He is currently receiving neoadjuvant/palliative chemotherapy and could be a potential etiology for his current issues. Oncology consulted and appreciate their recommendations. Although the sigmoid mass is not completely obstructing at this time, it is known to be partially obstructing. During his colonoscopy in October, the Child Psychology Teacher was able to pass the scope through the mass to the proximal segment of colon. It would be appropriate to consider colonic stent placement for this patient at a tertiary care facility for palliative treatment. (3) Leukopenia: Qualifiers: Leukopenia type: unspecified Qualified Code(s): D72.819 - Decreased white blood cell count, unspecified Code(s): D72.819 - Decreased white blood cell count, unspecified Status: Acute Assessment and Plan: WBC 2.0 today. Likely due to the chemotherapy treatment. Oncology consulted. Continue to monitor. (4) Iron deficiency anemia due to chronic blood loss: Code(s): D50.0 - Iron deficiency anemia secondary to blood loss (chronic) Status: Acute Assessment and Plan: Hgb remains stable. Secondary to the colon cancer. Continue to monitor. Additional Plan Discussed the patient's case and formulated the plan of care with Dr. Juarez. History of Present Illness Consult details Consult
--- NOTE | 2019-12-17 10:11 | PM.IMPN ---
Progress Note: A&P Assessment and Plan (1) Small bowel obstruction: Code(s): K56.609 - Unspecified intestinal obstruction, unspecified as to partial versus complete obstruction Status: Acute Assessment and Plan: -----small-bowel obstruction noted due to abnormal thickening of the distal small bowel which could be infectious, from metastatic disease, or due to chemotherapy. Patient is not having any abdominal pain in this area and he is not having any nausea or vomiting. The NG tube is in place but I believe this will be clamped or removed today. May consider a small-bowel follow-through to get a better look. His blood cultures are positive in 1 bottle so far gram-positive cocci in pairs. Could be contaminant, but will start antibiotics since he has immuno compromised. I have spoke to NGOC Swain about the plan of care. The patient's white blood cell count is low at 2.0. He has not had any fevers. I have consulted his oncologist. No systemic signs of infection but the patient is immunocompromised. (2) Nausea & vomiting: Qualifiers: Vomiting Intractability: non-intractable Vomiting type: unspecified Qualified Code(s): R11.2 - Nausea with vomiting, unspecified Code(s): R11.2 - Nausea with vomiting, unspecified Status: Acute Assessment and Plan: -----resolved. Secondary to SBO. Antiemetics as needed. (3) Leukopenia: Qualifiers: Leukopenia type: unspecified Qualified Code(s): D72.819 - Decreased white blood cell count, unspecified Code(s): D72.819 - Decreased white blood cell count, unspecified Status: Acute Assessment and Plan: -----Likely chemotherapy induced. Monitor CBCd. Oncology consult (4) Colon cancer: Qualifiers: Colon location: unspecified part of colon Qualified Code(s): C18.9 - Malignant neoplasm of colon, unspecified Code(s): C18.9 - Malignant neoplasm of colon, unspecified Status: Chronic Assessment and Plan: -----Metastatic colon cancer - Continue Heme-Onc recommendations. (5) Anemia: Qualifiers: Anemia type: unspecified type Qualified Code(s): D64.9 - Anemia, unspecified Code(s): D64.9 - Anemia, unspecified Status: Chronic Assessment and Plan: ----Likely chemotherapy induced as well as colon cancer. No signs of acute blood loss. Monitor H/H, transfuse prn. (6) Pre-diabetes: Code(s): R73.03 - Prediabetes Status: Chronic Assessment and Plan: -----Accuchecks, SSI coverage, hypoglycemic protocol. (7) Bacteremia: Code(s): R78.81 - Bacteremia Status: Acute Assessment and Plan: -----gram-positive cocci in pairs noted in 1/2 blood culture so far. As stated above, patient is immunosuppressed so I will start antibiotics. I will cover for Gram-positive cocci as well as GI pathogen since he has obstruction possible infection. I spoke with surgery about this. Time Spent With Patient Time with patient: 25 - 35 minutes Subjective Date/time seen: 12/17/19 10:11 Interval history: Pt is a 59year-old male here for small bowel obstruction with known history of colon cancer. Patient was seen today and states he still having some abdominal pain but it is located in his lower abdomen. He still has the NG but is not having any nausea or vomiting. He has been passing gas. He last had a bowel movement yesterday. He has not urinated since last night and refuses the straight cath. I spoke with him about the pain in the lower abdomen as this could be his bladder. He is going to try to get up and use the bathroom himself. If that does not work we are going to do a bladder scan and probably straight cath him then. Patient states that he is overall feeling better but does feel weak. Review of Systems Review of Systems: All systems reviewed & are unremarkable except as noted in HPI and below E
[2019-12-17 10:48] LABS: Add Urine Microscopic? NO; Appearance Urine Clear (Clear); Bilirubin Urine Negative (Negative); Blood Urine Negative (Negative); Color Urine Yellow (Yellow); Glucose Urine UA Negative (Negative); Ketones Urine Negative (Negative); Leukocyte Esterase Ur Negative LEU/UL (Negative); Nitrate Urine Negative (Negative); Protein Urine Negative (Negative); Urobilinogen Urine Negative mg/dL (<2.0)
[2019-12-17 10:50] LABS: Specific Grav Ur 1.038 (1.001-1.035)
[2019-12-17 11:04] LABS: Glucose Point of Care 149 (65-105)
[2019-12-17 14:00] VITALS: BP 125/72; PULSE 95; RESP 18; TEMP 36.4; O2SAT 100
--- NOTE | 2019-12-17 14:42 | PM.PNGS ---
Progress Note: A&P Assessment and Plan (1) Enterocolitis: Code(s): K52.9 - Noninfective gastroenteritis and colitis, unspecified Status: Acute Assessment and Plan: The enterocolitis is not specific. It is unlikely to be ischemic colitis. It is also unlikely to be related to tumor involvement. Infectious and inflammatory causes are possibilities. Response to chemotherapy may be the cause as well since this was not present prior to the chemotherapy a week ago. He seems to be feeling better. Continue NG suction and NPO for now. Will ask GI and Oncology to see. Follow exam and serial abdominal films. Consider Gastrografin upper GI small-bowel follow-through in 48 hours to assess for resolution. Do not anticipate patient will require surgery at this time. (2) Leukopenia: Qualifiers: Leukopenia type: unspecified Qualified Code(s): D72.819 - Decreased white blood cell count, unspecified Code(s): D72.819 - Decreased white blood cell count, unspecified Status: Acute Assessment and Plan: Likely consequence of chemotherapy treatment. Oncology to see. monitor (3) Colon cancer metastasized to liver: Code(s): C18.9 - Malignant neoplasm of colon, unspecified; C78.7 - Secondary malignant neoplasm of liver and intrahepatic bile duct Status: Chronic Assessment and Plan: The sigmoid colon tumor was nearly obstructing by the colonoscopy done November 05. I would consider colonic stenting if evidence of colonic obstruction should present or prophylactically should that concern arise. (4) Iron deficiency anemia due to chronic blood loss: Code(s): D50.0 - Iron deficiency anemia secondary to blood loss (chronic) Status: Chronic Assessment and Plan: Monitor Subjective Subjective Date/Time Seen: 12/17/19 06:52 Patient is a 59-year-old man who was admitted to [facility] on November 04 with diffuse abdominal pain and weight loss. He was evaluated and seen by my partner, for sigmoid colon cancer that had partial obstruction. He also had extensive liver metastases. The colon cancer was diagnosed by colonoscopy done 11/06/2019. Biopsies did show adenocarcinoma. Patient was able to be discharged on 11/06. He had a Port-A-Cath placed on 11/10/2019. He started on chemotherapy which he had a week ago. Yesterday he started having abdominal pain and vomiting in the afternoon. He also complains of generalized weakness. ER evaluation showed him to have tachycardia but otherwise normal vital signs. He was quite neutropenic with a white blood cell count of 1800. He is anemic as well with hemoglobin 9.9. Platelet count is normal. CT scan showed again the distal sigmoid tumor but also some wall thickening of the colon and distal ileum. There was concern regarding small-bowel obstruction. The patient was admitted and NG tube was placed. This morning, he tells me he feels better. He no longer has any abdominal pain and no nausea. There has been very little out the NG tube since he has been on the floor. He reportedly had a liquid bowel movement in the emergency room. He is seen now in consultation. Review of Systems Review of Systems: All systems reviewed & are unremarkable except as noted in HPI and below ( HPI and those items noted below) Hematologic/Lymphatic: Hematologic/Lymphatic: Reports other ( anemia and leukopenia as noted. Started chemotherapy a week ago) Exam Const: General: comfortable and no acute distress; No confusion Orientation/consciousness: patient oriented x3 and No confusion Resp: Effort & Inspection: normal respiratory effort Auscultation: clear to auscultation bilaterally Cardio: Rate: regular rate Rhythm: regular rhythm GI: Inspection: normal to inspection and non-distended GI Palp: Yes Soft to palpation, No Tenderness to palpation present (GI), No Guarding due to palpation present (GI), No Hernia present, No Palpable ma
--- NOTE | 2019-12-17 15:58 | WPDGICN ---
Assessment and Plan Assessment and plan (1) Colon cancer: Qualifiers: Colon location: unspecified part of colon Qualified Code(s): C18.9 - Malignant neoplasm of colon, unspecified Code(s): C18.9 - Malignant neoplasm of colon, unspecified Status: Chronic Assessment and Plan: metastatic colon cancer with partial obstruction sigmoid however he is passing stool and gas, here with leukopenia after chemotherapy, CT scan reviewed (Abnormal focal thickening of the distal sigmoid colon/rectum with adjacent phlegmonous changes) and also preliminary + blood cultures started on iv antibiotics. (2) Small bowel obstruction: Code(s): K56.609 - Unspecified intestinal obstruction, unspecified as to partial versus complete obstruction Status: Acute (3) Metastases to the liver: Code(s): C78.7 - Secondary malignant neoplasm of liver and intrahepatic bile duct Status: Acute (4) Enterocolitis: Code(s): K52.9 - Noninfective gastroenteritis and colitis, unspecified Status: Acute Assessment and Plan: on iv antibiotics, reviewed CT scan npo for now and ngt surgery on board (5) Bacteremia: Code(s): R78.81 - Bacteremia Status: Acute (6) Leukopenia: Qualifiers: Leukopenia type: unspecified Qualified Code(s): D72.819 - Decreased white blood cell count, unspecified Code(s): D72.819 - Decreased white blood cell count, unspecified Status: Acute Assessment and Plan: after chemotherapy (7) Nausea & vomiting: Qualifiers: Vomiting Intractability: non-intractable Vomiting type: unspecified Qualified Code(s): R11.2 - Nausea with vomiting, unspecified Code(s): R11.2 - Nausea with vomiting, unspecified Status: Acute GI Consult Note Consult date/time: 12/17/19 15:58 Reason for consult: metastatic colon cancer HPI: Jeff Duke is a 59 year old male who is known to me from previous hospitalization when he [facility] admitted for new diagnosis of sigmoid colon cancer that had partial obstruction, I performed his colonoscopy 11/06/2019 with biopsies showed adenocarcinoma. He started on chemotherapy had two round with last one about a week ago. He came here with worsening abdominal pain and vomiting, also complains of generalized weakness. Blood work showed neutropenia with a white blood cell count of 1800. Hb 9.9. CT scan showed again the distal sigmoid tumor but also some wall thickening of the colon and distal ileum. There was concern regarding small-bowel obstruction. The patient was admitted and NG tube was placed. Started on IV antibiotics. He says that has been having stools and passing gas. NGT with minimal gastric output today. Review of Systems Constitutional: Constitutional: Reports as per HPI, Denies excessive sweating, Reports fatigue, Denies fever(s), Denies headache(s) and Reports weakness (generalized) Eyes: Eyes: Denies change in vision and Denies loss of vision ENT: Reports Normal hearing present, Denies dizziness and Denies headache(s) Cardiovascular: Cardiovascular: Denies chest pain, Denies syncope, Denies leg edema, Denies lightheadedness, Denies radiating jaw, neck or arm pain and Denies dyspnea Respiratory: Respiratory: Denies cough, Denies dyspnea and Denies wheezing Gastrointestinal: Gastrointestinal: Reports as per HPI, Reports no additional gastrointestinal complaints, Reports abdominal pain, Denies melena, Reports bloating, Denies hematochezia, Denies tenesmus, Denies constipation, Denies diarrhea, Reports nausea and Reports vomiting Musculoskeletal: Musculoskeletal: Denies deformity, Denies joint swelling, Denies radiating pain into limb and Denies tingling Integumentary/Breasts: Skin/Breast: Denies pruritus, Denies wounds and Denies jaundice Neurologic: Denies Normal hearing present (hard of hearing), Denies confusion, Denies dizziness, Denies syncope, Denies headache(s), Denies loss of visi
[2019-12-17] MEDS: ONDANSETRON INJ 4 MG/2 ML VIAL IV PUSH ×2 (17:42→20:11)
[2019-12-17] MEDS: ENOXAPARIN 40 MG/0.4 ML SYRINGE SUB-Q (17:43)
[2019-12-17 18:13] LABS: Glucose Point of Care 132 (65-105)
[2019-12-17 20:00] VITALS: PULSE 88; RESP 14; O2SAT 98
[2019-12-17] MEDS: FAMOTIDINE 20 MG/2 ML VIAL IV PUSH (20:06)
[2019-12-17 20:13] VITALS: BP 123/76; PULSE 88; RESP 14; TEMP 37.3; O2SAT 98
[2019-12-18] MEDS: DEXTROSE 5%/0.9% SOD CHL 1,000 ML 100 ML IV CONT (04:54)
[2019-12-18 05:06] LABS: Glucose Point of Care 125 (65-105)
[2019-12-18 05:34] VITALS: BP 121/78; PULSE 80; RESP 16; TEMP 36.7; O2SAT 99
--- NOTE | 2019-12-18 06:19 | PC.NURSE ---
intake was ice chips
[2019-12-18 06:26] LABS: Hematocrit 26.4 % (42.0-52.0); Hemoglobin 8.1 g/dL (14.0-18.0); Mean Corpuscular HGB Conc 30.7 g/dl (32-36); Mean Corpuscular Hemoglobin 23.9 pg (26-34); Mean Corpuscular Volume 77.9 fl (80-100); Mean Platelet Volume 9.4 fl (7.4-10.4); Platelet Count Result 317 k/mm3 (150-375); Red Blood Count 3.39 M/mm3 (4.6-6.20); White Blood Count 4.3 K/mm3 (4.5-10.0)
[2019-12-18 06:43] LABS: Blood Urea Nitrogen 11 mg/dL (9-20); Calcium 7.7 mg/dL (8.4-10.2); Carbon Dioxide 24 mmol/L (22-30); Chloride 105 mmol/L (98-107); Estimated CRCL calculation 81 ml/min; Estimated Glomerular Filt Rate > 60; Glucose 124 mg/dL (75-110); Phosphorus 2.6 mg/dL (2.5-4.5); Sodium 134 mmol/L (137-145)
[2019-12-18 06:59] LABS: Band Neutrophils Percent 5 % (0-6); Eosinophils Absolute Manual 0.08 K/mm3 (0.02-0.5); Eosinophils Percent Manual 2 % (0-4); Hypochromasia 2+ (NORMAL); Lymphocytes Absolute Manual 1.11 K/mm3 (1.1-4.5); Monocytes Absolute Manual 0.17 K/mm3 (0.1-0.90); Monocytes Percent Manual 4 % (3-9); Neutrophils Absolute Manual 2.92 K/mm3 (1.3-6.7); Neutrophils Percent Manual 63 % (46-73); Platelet Clumps Present; Platelet Estimate Adequate (Adequate); Total Cells Counted 100
[2019-12-18 07:00] LABS: Anisocytosis 2+ (NORMAL); Stomatocytes 1+ (NORMAL)
[2019-12-18 08:29] VITALS: PULSE 80; RESP 16; O2SAT 99
[2019-12-18] MEDS: FAMOTIDINE 20 MG/2 ML VIAL IV PUSH ×2 (08:29→20:05)
--- NOTE | 2019-12-18 10:10 | PM.PNGS ---
Progress Note: A&P Assessment and Plan (1) Enterocolitis: Code(s): K52.9 - Noninfective gastroenteritis and colitis, unspecified Status: Acute Assessment and Plan: Gastroenterology and Oncology consulted. Appreciate recommendations. Continue IV antibiotics. Abd exam benign, +bowel function, clinically improving. Will clamp NG tube today. If he tolerates this, will remove and start clear liquids. (2) Leukopenia: Qualifiers: Leukopenia type: unspecified Qualified Code(s): D72.819 - Decreased white blood cell count, unspecified Code(s): D72.819 - Decreased white blood cell count, unspecified Status: Acute Assessment and Plan: WBC 4.3 today. Likely consequence of chemotherapy treatment. Oncology consulted. (3) Colon cancer metastasized to liver: Code(s): C18.9 - Malignant neoplasm of colon, unspecified; C78.7 - Secondary malignant neoplasm of liver and intrahepatic bile duct Status: Chronic Assessment and Plan: The sigmoid colon tumor was nearly obstructing by the colonoscopy done November 05. Could consider colonic stenting prophylactically or if evidence of colonic obstruction presents. (4) Bacteremia: Code(s): R78.81 - Bacteremia Status: Acute Assessment and Plan: Blood cultures preliminary results show gram-positive cocci in pairs in 2/2 bottles. Continue IV abx. ID consulted by Hospitalist. (5) Iron deficiency anemia due to chronic blood loss: Code(s): D50.0 - Iron deficiency anemia secondary to blood loss (chronic) Status: Chronic Assessment and Plan: Stable. Continue to monitor. Additional Plan Discussed plan of care with Dr. Melgar today. Subjective Subjective Date/Time Seen: 12/18/19 10:10 Patient reports: no new complaints, feels better, flatus and bowel movement Interval history: Patient reports feeling better today. Denies abdominal pain, nausea, vomiting, or bloating. Reports flatus and a formed BM this morning. No other complaints at this time. Review of Systems Review of Systems: All systems reviewed & are unremarkable except as noted in HPI and below Constitutional: Constitutional: Denies chills and Denies fever(s) Cardiovascular: Cardiovascular: Denies leg edema and Denies lightheadedness Respiratory: Respiratory: Denies cough and Denies dyspnea Gastrointestinal: Gastrointestinal: Reports as per HPI and Reports no additional gastrointestinal complaints Neurologic: Denies dizziness and Denies headache(s) Exam Const: General: comfortable, no acute distress, alert and awake Orientation/consciousness: patient oriented x3 GI: Inspection: normal to inspection and non-distended GI Palp: Yes abdominal tenderness (Lower abdominal tenderness), Yes Soft to palpation, No Guarding due to palpation present (GI) and No Rebound tenderness present Auscultation: normal bowel sounds Skin: General skin exam: normal color Neuro: General: moves all extremities and no focal motor deficits Extrem: General: no clubbing, cyanosis or edema and no calf tenderness Psych: Mental Status: mental status grossly normal Affect: normal affect Attitude: cooperative Insight: Good insight present (Psych) Judgement: Good judgement present (Psych) Objective Data Vital Signs Vital Signs: Vital Signs - 24 hr 12/17/19 14:00 12/17/19 20:00 12/17/19 20:13 Temperature 97.6 F 99.2 F Pulse Rate 95 88 88 Respiratory Rate 18 14 14 Blood Pressure 125/72 123/76 Pulse Oximetry 100 98 98 12/18/19 05:34 Temperature 98.1 F Pulse Rate 80 Respiratory Rate 16 Blood Pressure 121/78 Pulse Oximetry 99 Intake/Output Intake/Output: Intake & Output 12/15/19 12/16/19 12/17/19 12/18/19 23:59 23:59 23:59 23:59 Intake Total 1050 2100 1050 Output Total 1350 Balance 3490 555 0189 Meds/Results Medications: Active Medications Generic Name Dose Route Start Last Admin Trade Name Freq PRN Reason Stop D
--- NOTE | 2019-12-18 11:38 | WPDGIPROGNO ---
Progress Note: A&P Assessment and Plan (1) Bacteremia: Code(s): R78.81 - Bacteremia Status: Acute Assessment and Plan: on iv antibiotics, GP pending final ID ID will see patient, he is immunocompromised with recent chemotherapy and stage IV colon cancer (2) Enterocolitis: Code(s): K52.9 - Noninfective gastroenteritis and colitis, unspecified Status: Acute (3) Small bowel obstruction: Code(s): K56.609 - Unspecified intestinal obstruction, unspecified as to partial versus complete obstruction Status: Acute Assessment and Plan: less nauseous and overall feeling better, surgery team on board (4) Colon cancer metastasized to liver: Code(s): C18.9 - Malignant neoplasm of colon, unspecified; C78.7 - Secondary malignant neoplasm of liver and intrahepatic bile duct Status: Chronic Assessment and Plan: palliative treatment by oncology (5) Colonic mass: Code(s): K63.89 - Other specified diseases of intestine Status: Acute Assessment and Plan: nearly obstructing lesion in sigmoid, he is passing gas and stools consideration of colonic stent if worsening disease but hold off now in setting of bacteremia with sepsis Subjective Date/time seen: 12/18/19 11:38 Interval history: no more nausea, abdominal pain in llq improved. He says that is passing gas and having stools Review of Systems Review of Systems: All systems reviewed & are unremarkable except as noted in HPI and below Exam Const: General: comfortable and no acute distress; No confusion Orientation/consciousness: patient oriented x3 and No confusion HENMT: Other: ngt in place Eyes: General: appearance normal, both eyes and all related structures Neck: Neck: no JVD Resp: Effort & Inspection: normal respiratory effort Auscultation: clear to auscultation bilaterally Cardio: Rate: regular rate Rhythm: regular rhythm GI: Inspection: normal to inspection and non-distended GI Palp: Yes Soft to palpation, Yes Tenderness to palpation present (GI) (les ttp in llq, no rebound), No Guarding due to palpation present (GI), No Hernia present, No Palpable mass present and No Rebound tenderness present Auscultation: Hypoactive bowel sounds present Skin: Wounds: no wounds Neuro: General: patient oriented x3, no focal motor deficits and No confusion Speech: normal speech Extrem: General: no calf tenderness and no edema Psych: Affect: normal affect Insight: Good insight present (Psych) Judgement: Good judgement present (Psych) Objective Data Vital Signs Vital Signs: Vital Signs - 24 hr 12/17/19 14:00 12/17/19 20:00 12/17/19 20:13 Temperature 97.6 F 99.2 F Pulse Rate 95 88 88 Respiratory Rate 18 14 14 Blood Pressure 125/72 123/76 Pulse Oximetry 100 98 98 12/18/19 05:34 Temperature 98.1 F Pulse Rate 80 Respiratory Rate 16 Blood Pressure 121/78 Pulse Oximetry 99 Intake/Output Intake/Output: Intake & Output 12/15/19 12/16/19 12/17/19 12/18/19 23:59 23:59 23:59 23:59 Intake Total 1050 2100 1050 Output Total 1350 Balance 7474 [id number] 7315 Meds/Results Medications: Active Medications Generic Name Dose Route Start Last Admin Trade Name Freq PRN Reason Stop Dose Admin Dextrose 12.5 gm 12/16/19 20:59 Dextrose 50% Syringe IV PUSH PRN PRN Hypoglycemia Protocol Enoxaparin Sodium 40 mg 12/18/19 15:00 Lovenox SUB-Q DAILY@1500 CRISPIN Famotidine 20 mg 12/17/19 21:00 12/18/19 08:29 Pepcid Iv IV PUSH 20 mg Q12HR CRISPIN Administration Glucagon 1 mg 12/16/19 20:59 Glucagon For Inj IM PRN PRN Hypoglycemia Protocol Glucose 15 gm 12/16/19 20:59 Glutose 15 PO PRN PRN Hypoglycemia Protocol Dextrose/Sodium Chloride 1,000 mls @ 100 mls/hr 12/16/19 19:50 12/18/19 08:29 Dextrose 5% Sodium Chloride 0.9% IV CONT 0 mls/hr .Q10H CRISPIN Infusion Dextrose 1,000 mls @ 100 mls/hr 12/16/19
--- NOTE | 2019-12-18 11:41 | PM.IMPN ---
Progress Note: A&P Assessment and Plan (1) Bacteremia: Code(s): R78.81 - Bacteremia Status: Acute Assessment and Plan: -----gram-positive cocci in pairs noted in 2/[address] Aggarwal has been consulted, continue zosyn. Pt is immunosuppressed. I will cover for Gram-positive cocci as well as GI pathogen since he has obstruction possible infection. (2) Small bowel obstruction: Code(s): K56.609 - Unspecified intestinal obstruction, unspecified as to partial versus complete obstruction Status: Acute Assessment and Plan: -----small-bowel obstruction noted due to abnormal thickening of the distal small bowel which could be infectious, from metastatic disease, or due to chemotherapy. Patient is not having any abdominal pain in this area and he is not having any nausea or vomiting. He had a BM today and xray looks like sbo is resolving. The NG tube is in place but I believe this will be clamped or removed today. May consider a small-bowel follow-through to get a better look. His blood cultures are positive for gram-positive cocci in pairs. Pt is on abx zosyn. His WBC is improving. Will draw CRP. (3) Nausea & vomiting: Qualifiers: Vomiting Intractability: non-intractable Vomiting type: unspecified Qualified Code(s): R11.2 - Nausea with vomiting, unspecified Code(s): R11.2 - Nausea with vomiting, unspecified Status: Acute Assessment and Plan: -----resolved. Secondary to SBO. Antiemetics as needed. (4) Leukopenia: Qualifiers: Leukopenia type: unspecified Qualified Code(s): D72.819 - Decreased white blood cell count, unspecified Code(s): D72.819 - Decreased white blood cell count, unspecified Status: Acute Assessment and Plan: -----Likely chemotherapy induced. Monitor CBCd. Oncology consult (5) Colon cancer: Qualifiers: Colon location: unspecified part of colon Qualified Code(s): C18.9 - Malignant neoplasm of colon, unspecified Code(s): C18.9 - Malignant neoplasm of colon, unspecified Status: Chronic Assessment and Plan: -----Metastatic colon cancer - Continue Heme-Onc recommendations. (6) Anemia: Qualifiers: Anemia type: unspecified type Qualified Code(s): D64.9 - Anemia, unspecified Code(s): D64.9 - Anemia, unspecified Status: Chronic Assessment and Plan: ----Likely chemotherapy induced as well as colon cancer. No signs of acute blood loss. Monitor H/H, transfuse prn. (7) Pre-diabetes: Code(s): R73.03 - Prediabetes Status: Chronic Assessment and Plan: -----Accuchecks, SSI coverage, hypoglycemic protocol. Subjective Date/time seen: 12/18/19 11:41 Interval history: Pt is a 59year-old male here for small bowel obstruction with known history of colon cancer. Patient was seen today and is doing well. He is not having any nausea, vomiting and his abdominal pain is more of a pressure and not pain. He has had a bowel movement and is passing gas. He still has the NG intact. Pt denies nausea, vomiting, fevers, chills, chest pain, or shortness of breath Exam Narrative: Exam Narrative: General: Well developed well nourished patient resting comfortably in bed in NAD HEENT: normocephalic Neck: supple Neuro: Alert and oriented x 4. CV:RRR Resp:CTA Abd: Soft, non distended. No pain to palpation Positive bowel sounds Extremities: No swelling, erythema, or pain to palpation. Objective Data Vital Signs Vital Signs: Vital Signs - 24 hr 12/17/19 14:00 12/17/19 20:00 12/17/19 20:13 Temperature 97.6 F 99.2 F Pulse Rate 95 88 88 Respiratory Rate 18 14 14 Blood Pressure 125/72 123/76 Pulse Oximetry 100 98 98 12/18/19 05:34 Temperature 98.1 F Pulse Rate 80 Respiratory Rate 16 Blood Pressure 121/78 Pulse Oximetry 99 Intake/Output Intake/Output: Intake & Output
[2019-12-18 12:04] LABS: Glucose Point of Care 124 (65-105)
[2019-12-18 12:29] LABS: CRP 25.7 mg/dL (<1.0)
--- NOTE | 2019-12-18 13:32 | WPDINFPN2 ---
Progress Note: A&P Assessment and Plan (1) Bacteremia: Code(s): R78.81 - Bacteremia Status: Acute Assessment and Plan: Gram positive bacteremia with infection, Strep. by morphology. Source intestine vs liver vs port, probably the small or large intestine. 2. Metastatic sigmoid adenocarcinoma 3. Leukopenia, mild with acceptable ANC 4. Bowel obstruction REC PipTazo # 2, continue, f/u micro, will need minimum 3 days more IV rx. Subjective Date/time seen: 12/18/19 13:32 Objective Data Vital Signs Vital Signs: Vital Signs - 24 hr 12/17/19 14:00 12/17/19 20:00 12/17/19 20:13 Temperature 36.4 C 37.3 C Pulse Rate 95 88 88 Respiratory Rate 18 14 14 Blood Pressure 125/72 123/76 Pulse Oximetry 100 98 98 12/18/19 05:34 12/18/19 08:29 Temperature 36.7 C Pulse Rate 80 80 Respiratory Rate 16 16 Blood Pressure 121/78 Pulse Oximetry 99 99 Intake/Output Intake/Output: Intake & Output 12/15/19 12/16/19 12/17/19 12/18/19 23:59 23:59 23:59 23:59 Intake Total 1050 2100 1600 Output Total 1350 Balance 2341 552 7320 Meds/Results Medications: Active Medications Generic Name Dose Route Start Last Admin Trade Name Freq PRN Reason Stop Dose Admin Dextrose 12.5 gm 12/16/19 20:59 Dextrose 50% Syringe IV PUSH PRN PRN Hypoglycemia Protocol Enoxaparin Sodium 40 mg 12/18/19 15:00 Lovenox SUB-Q DAILY@1500 CRISPIN Famotidine 20 mg 12/17/19 21:00 12/18/19 08:29 Pepcid Iv IV PUSH 20 mg Q12HR CRISPIN Administration Glucagon 1 mg 12/16/19 20:59 Glucagon For Inj IM PRN PRN Hypoglycemia Protocol Glucose 15 gm 12/16/19 20:59 Glutose 15 PO PRN PRN Hypoglycemia Protocol Dextrose/Sodium Chloride 1,000 mls @ 100 mls/hr 12/16/19 19:50 12/18/19 08:29 Dextrose 5% Sodium Chloride 0.9% IV CONT 0 mls/hr .Q10H CRISPIN Infusion Dextrose 1,000 mls @ 100 mls/hr 12/16/19 20:59 Dextrose 5% 1,000 Ml IVPB PRN PRN Hypoglycemia Protocol Piperacillin/Tazobactam/Dextrose 3.375 gm in 50 mls @ 100 mls/hr 12/17/19 12:00 12/18/19 13:15 Zosyn 3.375 Gm/D5w 50ml Pm IVPB 100 mls/hr Q6H CRISPIN Administration Insulin Aspart 2 - 5 units 12/17/19 00:00 12/18/19 12:34 Novolog SUB-Q Not Given Q6HR [facility] Protocol Ondansetron HCl 4 mg 12/16/19 20:05 12/17/19 20:11 Zofran Inj IV PUSH 4 mg Q4H PRN Administration Nausea Radiology Results: ITS Impressions Chest X-Ray 12/16/19 18:08 IMPRESSION: 1: NO ACUTE CARDIOPULMONARY DISEASE. 2: Dilated small bowel loops in the upper abdomen, ileus versus obstruction. Head CT 12/16/19 18:51 IMPRESSION: 1. No acute intracranial abnormality. Abdomen/Pelvis CT 12/16/19 19:00 IMPRESSION: 1. Abnormal focal thickening of the distal sigmoid colon/rectum with adjacent phlegmonous change which may represent the site of malignancy. There is a long segment of abnormally thickened distal colon as well as distal small bowel, most likely infectious, although metastatic disease is not excluded. 2: Small bowel obstruction secondary to abnormal thickening of the distal small bowel with transition in the right mid abdomen. 3: Widespread liver metastases. Due to the extensive liver abnormality is difficult to determine if there has been significant interval change. Abdomen X-Ray 12/18/19 07:24 IMPRESSION: 1. Nonspecific bowel gas pattern which could be related to ileus or resolving small bowel obstruction. 2. Suggestion of haustral fold thickening at the hepatic flexure of the colon consistent with colitis. Labs Labs: Laboratory Results - last 24 hr 12/17/19 12/18/19 12/18/19 17:41 04:59 06:13 WBC 4.3 L RBC 3.39 L Hgb 8.1 L Hct 26.4 L MCV 77.9 L MCH 23.9 L MCHC 30.7 L RDW TNP Plt Count 317 MPV 9.4 Immature Gran % (Auto) Not Reportable Neut % (Auto) Not Reportable Lymph % (Auto) Not
[2019-12-18 16:00] VITALS: BP 135/80; PULSE 82; RESP 18; TEMP 36.9; O2SAT 100
[2019-12-18] MEDS: ENOXAPARIN 40 MG/0.4 ML SYRINGE SUB-Q (16:24)
[2019-12-18] MEDS: DEXTROSE 5%/0.9% SOD CHL 1,000 ML 70 ML IV CONT ×2 (16:24→21:50)
[2019-12-18 17:58] LABS: Glucose Point of Care 110 (65-105)
--- NOTE | 2019-12-18 18:57 | WPDONCCN ---
Assessment and Plan Additional Plan see my note completed 12/19/2019 HPI Data of Consult Date/Time: 12/18/19 18:57 Requesting Physician: Reta Wilson PA-C Primary Care Provider: Dave Sauer DO Family Provider: Gabe Guadarrama MD Consult Narrative Narrative: Jeff Duke is a 59 year old male Patient treated by Dr. Sauer for his stage IV colon cancer at diagnosis. He was admitted with acute colitis and apparent bowel obstruction plus sepsis. For details see my note dictated 12/19/2019 [facility] Past Medical History Medical History Colon cancer metastasized to liver Iron deficiency anemia due to chronic blood loss Pre-diabetes Surgical History Surgical History History of colonoscopy 11/06/19 Colonoscopy with biopsies of sigmoid mass with pathology showing colonic adenocarcinoma No significant past surgical history Family History Family History Other Diabetes mellitus Heart disease Social History Social History Smoking status: Current some day smoker Tobacco type: cigars Additional smoking assessment comments: 1-3 CIGARILLOS EVERY OTHER DAY Alcohol intake: never Substance use: never Substance use type: does not use Additional living arrangements comments: Lives with his . They have three children. 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 Gender identity (if verbalized by the patient): Male Sexual Orientation (if Verbalized by the Patient): Straight or Heterosexual Spiritual care concerns: No Meds Home Medications and Allergies Home Medications Medication Instructions Recorded Confirmed Type docusate sodium [Colace] 200 mg PO BID 12/16/19 12/16/19 History lorazepam 1 mg PO Q6H PRN 12/16/19 12/16/19 History potassium chloride 10 meq PO DAILY 12/16/19 12/16/19 History Allergies Allergy/AdvReac Type Severity Reaction Status Date / Time No Known Allergies Allergy Verified 12/16/19 17:19 Vital Signs Vital Signs - 24 hr 12/17/19 20:00 12/17/19 20:13 12/18/19 05:34 Temperature 37.3 C 36.7 C Pulse Rate 88 88 80 Respiratory Rate 14 14 16 Blood Pressure 123/76 121/78 Pulse Oximetry 98 98 99 12/18/19 08:29 12/18/19 16:00 Temperature 36.9 C Pulse Rate 80 82 Respiratory Rate 16 18 Blood Pressure 135/80 Pulse Oximetry 99 100 Results Labs CBC & Chem 7: 12/19/19 05:17 12/19/19 05:17 Labs: Short CBC 12/18/19 Range/Units 06:13 WBC 4.3 L (4.5-10.0) K/mm3 Hgb 8.1 L (14.0-18.0) g/dL Hct 26.4 L (42.0-52.0) % Plt Count 317 (150-375) k/mm3 [facility] 12/18/19 06:13 Sodium 134 L Potassium 3.0 L Chloride 105 Carbon Dioxide 24 BUN 11 Creatinine 0.80 Glucose 124 H Calcium 7.7 L
[2019-12-18] MEDS: CENTRAL LINE FLUSH 10 ML IV PUSH (20:05)
[2019-12-18 21:52] VITALS: BP 122/79; PULSE 78; RESP 16; TEMP 36.2; O2SAT 100
[2019-12-18 23:06] LABS: Glucose Point of Care 130 (65-105)
[2019-12-19 05:11] VITALS: BP 130/86; PULSE 73; RESP 16; TEMP 36.9; O2SAT 100
[2019-12-19] MEDS: CENTRAL LINE FLUSH 10 ML IV PUSH ×2 (05:20→13:33)
[2019-12-19 05:22] LABS: Basophils Absolute Auto 0.1 K/mm3 (0.0-0.1); Basophils Percent Auto 1.1 % (0.2-1.2); Eosinophils Absolute Auto 0.1 K/mm3 (0-0.3); Eosinophils Percent Auto 1.1 % (0-4.4); Hematocrit 25.1 % (42.0-52.0); Hemoglobin 7.8 g/dL (14.0-18.0); Immature Granulocyte Absolute 0.14 K/mm3 (0.00-0.031); Immature Granulocyte Percent A 1.9 % (0-0.5); Lymphocytes Absolute Auto 1.08 K/mm3 (0.9-3.2); Lymphocytes Percent Auto 14.8 % (18.3-44.2); Mean Corpuscular HGB Conc 31.1 g/dl (32-36); Mean Corpuscular Hemoglobin 23.9 pg (26-34); Mean Corpuscular Volume 76.8 fl (80-100); Mean Platelet Volume 8.7 fl (7.4-10.4); Monocytes Absolute Auto 0.6 K/mm3 (0.1-0.6); Monocytes Percent Auto 7.7 % (2.6-8.5); Neutrophils Absolute Auto 5.3 K/mm3 (1.3-6.7); Neutrophils Percent Auto 73.4 % (45.5-73.1); Nucleated Red Blood Cells Perc 0.3 % (0.0-0.2); Platelet Count Result 327 k/mm3 (150-375); Red Blood Count 3.27 M/mm3 (4.6-6.20); White Blood Count 7.3 K/mm3 (4.5-10.0)
[2019-12-19 05:27] LABS: Glucose Point of Care 122 (65-105)
[2019-12-19 05:45] LABS: Alanine Aminotransferase 12 U/L (4-50); Albumin Level 2.7 g/dL (3.5-5.1); Alkaline Phosphatase 89 U/L (38-126); Aspartate Amino Transferase 19 U/L (17-59); Bilirubin,Total 0.5 mg/dL (0.2-1.3); Blood Urea Nitrogen 5 mg/dL (9-20); Calcium 7.8 mg/dL (8.4-10.2); Carbon Dioxide 26 mmol/L (22-30); Chloride 103 mmol/L (98-107); Estimated CRCL calculation 92 ml/min; Estimated Glomerular Filt Rate > 60; Glucose 127 mg/dL (75-110); Magnesium 1.9 mg/dL (1.6-2.3); Potassium 2.9 mmol/L (3.4-5.0); Sodium 133 mmol/L (137-145)
--- NOTE | 2019-12-19 06:31 | CONS_ITS ---
DATE OF CONSULTATION: 12/18/2019 REASON FOR CONSULTATION: Bacteremia. HISTORY OF PRESENT ILLNESS: The patient is a 59-year-old male, who unfortunately was found to have sigmoid adenocarcinoma approximately 2 months ago. He did not have complete obstruction at the time of his colonoscopy. He did have a Port-A-Cath placed left upper chest in early November and has been receiving chemotherapy every 2 weeks. The port is also used for blood draws. He received no recent antibiotics and he presented to the emergency room a [id number] ago with new onset of nausea, vomiting, generalized weakness and lassitude. He was febrile here and as well as tachycardic and white blood cell count 1.8. He was admitted with impression of bowel obstruction. He received no initial antibiotics. However, he did turn positive yesterday. He was started on piperacillin/tazobactam and remains on that now day 2. He had no chills nor sweats. He was unaware of the fever when it was found. He has also had abdominal pain, suprapubic, right lower quadrant, and left lower quadrant, which is not constant, but fairly persistent. No further vomiting today with presence of an NG tube. He has lost some 15 pounds of weight in the last month. He has had no hematemesis. No radiation of the pain. PRESENT MEDICATIONS: List reviewed. No systemic immunosuppressants. HABITS: Occasional cigars. No alcohol. ALLERGIES: NONE KNOWN. PAST MEDICAL HISTORY: In addition to the above, iron deficiency anemia, obesity, and early diabetes. FAMILY HISTORY: Diabetes and heart disease. SOCIAL HISTORY: He works. Lives with his , three children. Lives locally. REVIEW OF SYSTEMS: 14-point review is otherwise negative. PHYSICAL EXAMINATION: GENERAL: This is a middle-aged male, who appears his actual age. No respiratory distress. VITAL SIGNS: Afebrile, 80, 16, 121/78, 99% on room air. SKIN: Tanned. No rashes. Warm and dry. EENT: Pupils equal, round, and reactive to light. The conjunctivae are normal. Oropharynx, oral mucosa normal. Teeth in excellent repair. No paranasal sinus, erythema, edema or tenderness. NECK: No meningismus, mass, thyromegaly. LUNGS: Clear to auscultation and percussion. Chest Port-A-Cath is accessed. Left upper chest without skin breakdown, fluctuance, or ecchymosis. CARDIAC: Regular rate and rhythm. No murmur or gallop. Pulses are 2+ and equal. ABDOMEN: Obese, not distended. He has occasional normal pitched bowel sounds. He has fullness in the suprapubic area, but no discrete masses. No evidence of ascites. He has no organomegaly. EXTREMITIES: Trace ankle edema. No clubbing, cyanosis. No venous varicosities. LABORATORY DATA: Blood cultures 2/2 sets gram-positive cocci in pairs. White count 4.3, on admission was 1.8 and on November 06 was 14.6, hemoglobin 8.1, platelets are 317. Differential is normal. His ANC is 2.92. He has mild hyponatremia, which is recovering. Glucose 124, calcium 7.7. CRP is 26. Urinalysis normal, except for a specific gravity 1.038. RADIOLOGY: Abdomen x-ray normal bowel gas pattern, suspected haustral fold thickening at the hepatic flexure. His abdomen and pelvic CT performed 2 days ago with abnormal focal thickening distal sigmoid and rectum with adjacent phlegmon, thickened distal colon, suspected SBO and widespread liver metastases. ASSESSMENT: 1. Bacteremia with infection, suspect this is a true infection, not a skin contaminant such as Streptococcus viridans. The other microbiologic possibilities include cutaneous streptococci, Enterococcus, other intestinal streptococci. 2. Bowel obstruction, undergoing therapy. NG tube is still in place. 3. Metastatic colon cancer. 4. Mild leukopenia, recovering and without neutropenia.
[2019-12-19 06:40] LABS: Anisocytosis 2+ (NORMAL); Platelet Estimate Adequate (Adequate)
[2019-12-19] MEDS: POTASSIUM CHLORIDE 20 MEQ TABLET 40 MEQ PO ×2 (08:18→17:44)
[2019-12-19] MEDS: FAMOTIDINE 20 MG/2 ML VIAL IV PUSH ×2 (08:19→20:44)
[2019-12-19 08:27] VITALS: RESP 16; O2SAT 100
[2019-12-19 12:12] LABS: Glucose Point of Care 150 (65-105)
--- NOTE | 2019-12-19 12:19 | PM.PNGS ---
Progress Note: A&P Assessment and Plan (1) Enterocolitis: Code(s): K52.9 - Noninfective gastroenteritis and colitis, unspecified Status: Acute Assessment and Plan: continued treatment with broad-spectrum antibiotics per ID, abdominal exam benign, having bowel function, will advance diet as tolerated (2) Bacteremia: Code(s): R78.81 - Bacteremia Status: Acute Assessment and Plan: continue antibiotics per ID recommendation, likely GI source (3) Colon cancer metastasized to liver: Code(s): C18.9 - Malignant neoplasm of colon, unspecified; C78.7 - Secondary malignant neoplasm of liver and intrahepatic bile duct Status: Chronic Assessment and Plan: will resume chemotherapy once infection has cleared per Oncology Subjective Subjective Date/Time Seen: 12/19/19 12:19 feels okay today, a little more energy, having bowel function, tolerating clear liquid diet without issue Review of Systems Constitutional: Constitutional: Reports fatigue, Reports lethargy and Reports weakness Cardiovascular: Cardiovascular: Denies chest pain Respiratory: Respiratory: Denies dyspnea Gastrointestinal: Gastrointestinal: Denies abdominal pain, Reports bloating, Denies constipation, Denies diarrhea, Denies nausea and Denies vomiting Exam Const: General: no acute distress Resp: Auscultation: clear to auscultation bilaterally Cardio: Rate: regular rate Rhythm: regular rhythm GI: Other: S, sl dist, NT Objective Data Vital Signs Vital Signs: Vital Signs - 24 hr 12/18/19 16:00 12/18/19 21:52 12/19/19 05:11 Temperature 36.9 C 36.2 C L 36.9 C Pulse Rate 82 78 73 Respiratory Rate 18 16 16 Blood Pressure 135/80 122/79 130/86 Pulse Oximetry 100 100 100 12/19/19 08:27 Temperature Pulse Rate Respiratory Rate 16 Blood Pressure Pulse Oximetry 100 Intake/Output Intake/Output: Intake & Output 12/16/19 12/17/19 12/18/19 12/19/19 23:59 23:59 23:59 23:59 Intake Total 1050 2100 3990 1848 Output Total 1350 200 650 Balance 9627 379 0927 1198 Meds/Results Medications: Active Medications Generic Name Dose Route Start Last Admin Trade Name Freq PRN Reason Stop Dose Admin Dextrose 12.5 gm 12/16/19 20:59 Dextrose 50% Syringe IV PUSH PRN PRN Hypoglycemia Protocol Enoxaparin Sodium 40 mg 12/18/19 15:00 12/18/19 16:24 Lovenox SUB-Q 40 mg DAILY@1500 CRISPIN Administration Famotidine 20 mg 12/17/19 21:00 12/19/19 08:19 Pepcid Iv IV PUSH 20 mg Q12HR CRISPIN Administration Glucagon 1 mg 12/16/19 20:59 Glucagon For Inj IM PRN PRN Hypoglycemia Protocol Glucose 15 gm 12/16/19 20:59 Glutose 15 PO PRN PRN Hypoglycemia Protocol Heparin Sodium (Beef Lung) 50 units 12/19/19 09:00 12/19/19 08:19 Heparin Flush 50 Units/5 Ml IV PUSH Not Given QAM CRISPIN Heparin Sodium (Beef Lung) 50 units 12/18/19 19:40 Heparin Flush 50 Units/5 Ml IV PUSH PRN PRN after intermittent infusion Heparin Sodium (Beef Lung) 50 units 12/18/19 19:40 Heparin Flush 50 Units/5 Ml IV PUSH PRN PRN after blood draws Heparin Sodium (Porcine) 500 units 12/18/19 19:40 Heparin Sod Flush 100 Units/Ml IV PUSH PRN PRN see comments below Dextrose/Sodium Chloride 1,000 mls @ 70 mls/hr 12/16/19 19:50 12/19/19 12:13 Dextrose 5% Sodium Chloride 0.9% IV CONT 0 mls/hr .[id number] CRISPIN Infusion Dextrose 1,000 mls @ 100 mls/hr 12/16/19 20:59 Dextrose 5% 1,000 Ml IVPB PRN PRN Hypoglycemia Protocol Piperacillin/Tazobactam/Dextrose 3.375 gm in 50 mls @ 100 mls/hr 12/17/19 12:00 12/19/19 12:13 Zosyn 3.375 Gm/D5w 50ml Pm IVPB 100 mls/hr Q6H CRISPIN Administration Insulin Aspart 2 - 5 units 12/17/19 00:00 12/19/19 12:12 Novolog SUB-Q Not Given Q6HR [facility] Protocol Ondansetron HCl 4 mg 12/16/19 20:05 12/17/19 20:11 Zofran Inj IV PUSH 4 mg
--- NOTE | 2019-12-19 12:49 | WPDONCCN ---
Assessment and Plan Additional Plan Liver metastasis secondary to colon cancer now status post a second course of chemotherapy. After both episodes of chemotherapy he had significant colitis This hospitalization has also resulted in significant bacteremia with significant leukopenia if not neutropenia. Fortunately he is getting better today. He is scheduled for more chemotherapy next week but I think this should be put on hold for least weak and serious consideration of dose adjustment in his chemotherapy regimen should be made. He can be discharged to follow-up with Dr. Sauer when clinically stable by his current attending team. HPI Data of Consult Date/Time: 12/19/19 12:49 Requesting Physician: Reta Wilson PA-C Primary Care Provider: Dave Sauer DO Family Provider: Gabe Guadarrama MD Consult Narrative Narrative: Jeff Duke is a 59 year old maleFollowed by Dr. Dave Sauer in our group for stage IV colon cancer with liver metastases. He received his first course of his current chemotherapy with 5 FU, CPT-11, leucovorin, and oxaliplatin on 11/24/2019. On 12/03/2019 he developed chemotherapy-induced colitis requiring IV fluids and dexamethasone with improvement in a few days. He received his second course of chemotherapy on 12/08/2019 without any changes in his dosage of chemotherapy. He was then admitted to [facility] thru the emergency department on 12/16/2019 with a several day history of severe abdominal pain in some fever. He was thought to have acute colitis an apparent partial small bowel obstruction. He also had neutropenia with a total white count of 1800. Two blood cultures were positive for strep. He was seen by general surgery who treated him expectantly. He was seen by infectious diseases started antibiotics. Since admission his clinical course has substantially improved. His white count has improved. Review of Systems Constitutional: Constitutional: Reports as per HPI Cardiovascular: Cardiovascular: Reports no additional cardiovascular complaints Respiratory: Respiratory: Reports no additional respiratory complaints Gastrointestinal: Gastrointestinal: Reports as per HPI Genitourinary: Genitourinary: Reports no additional male genitourinary complaints Musculoskeletal: Musculoskeletal: Reports no additional musculoskeletal complaints Psychiatric: Psychiatric: Reports no additional psychiatric complaints [facility] Past Medical History Medical History Colon cancer metastasized to liver Iron deficiency anemia due to chronic blood loss Pre-diabetes Surgical History Surgical History History of colonoscopy 11/06/19 Colonoscopy with biopsies of sigmoid mass with pathology showing colonic adenocarcinoma No significant past surgical history Family History Family History Other Diabetes mellitus Heart disease Social History Social History Smoking status: Current some day smoker Tobacco type: cigars Additional smoking assessment comments: 1-3 CIGARILLOS EVERY OTHER DAY Alcohol intake: never Substance use: never Substance use type: does not use Additional living arrangements comments: Lives with his . They have three children. 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 Gender identity (if verbalized by the patient): Male Sexual Orientation (if Verbalized by the Patient): Straight or Heterosexual Spiritual care concerns: No Meds Home Medications and Allergies Home Medications Medication Instructions Recorded Confirmed Type docusate sodium [Colace] 200 mg PO BID 12/16/19 12/16/19 History lorazepam 1 mg PO Q6H PRN 12/16/19 12/16/19 History potas
[2019-12-19] MEDS: DEXTROSE 5%/0.9% SOD CHL 1,000 ML 70 ML IV CONT (13:29)
--- NOTE | 2019-12-19 13:46 | WPDGIPROGNO ---
Progress Note: A&P Assessment and Plan (1) Sepsis: Code(s): A41.9 - Sepsis, unspecified organism Status: Acute Assessment and Plan: strept bacteremia- he is doing better with medical treatment. ID on board (2) Bacteremia: Code(s): R78.81 - Bacteremia Status: Acute (3) Enterocolitis: Code(s): K52.9 - Noninfective gastroenteritis and colitis, unspecified Status: Acute Assessment and Plan: bacteremia probably GI source, sbo resolved and tolerating diet- ok to advance he is doing much better will sign off (4) Colon cancer metastasized to liver: Code(s): C18.9 - Malignant neoplasm of colon, unspecified; C78.7 - Secondary malignant neoplasm of liver and intrahepatic bile duct Status: Chronic Assessment and Plan: oncology on board, hold off chemotherapy next week given bacteremia (5) Immunocompromised state: Code(s): D89.9 - Disorder involving the immune mechanism, unspecified Status: Acute Assessment and Plan: metastatic colon cancer and recent chemotherapy Subjective Date/time seen: 12/19/19 13:46 Interval history: he is feeling better, tolerating liquid diet, abdominal pain is significantly improved and having BM's. Review of Systems Review of Systems: All systems reviewed & are unremarkable except as noted in HPI and below Exam Const: General: comfortable and no acute distress; No confusion Orientation/consciousness: patient oriented x3 and No confusion HENMT: Other: ngt in place Eyes: General: appearance normal, both eyes and all related structures Neck: Neck: no JVD Resp: Effort & Inspection: normal respiratory effort Auscultation: clear to auscultation bilaterally Cardio: Rate: regular rate Rhythm: regular rhythm GI: Inspection: normal to inspection and non-distended GI Palp: Yes Soft to palpation, No Guarding due to palpation present (GI), No Hernia present and No Palpable mass present Auscultation: normal bowel sounds Skin: Wounds: no wounds Neuro: General: patient oriented x3, no focal motor deficits and No confusion Speech: normal speech Extrem: General: no calf tenderness and no edema Psych: Affect: normal affect Insight: Good insight present (Psych) Judgement: Good judgement present (Psych) Objective Data Vital Signs Vital Signs: Vital Signs - 24 hr 12/18/19 16:00 12/18/19 21:52 12/19/19 05:11 Temperature 98.4 F 97.2 F L 98.5 F Pulse Rate 82 78 73 Respiratory Rate 18 16 16 Blood Pressure 135/80 122/79 130/86 Pulse Oximetry 100 100 100 12/19/19 08:27 Temperature Pulse Rate Respiratory Rate 16 Blood Pressure Pulse Oximetry 100 Intake/Output Intake/Output: Intake & Output 12/16/19 12/17/19 12/18/19 12/19/19 23:59 23:59 23:59 23:59 Intake Total 1050 2100 3990 2402 Output Total 1350 200 650 Balance 9786 555 8191 1752 Meds/Results Medications: Active Medications Generic Name Dose Route Start Last Admin Trade Name Freq PRN Reason Stop Dose Admin Dextrose 12.5 gm 12/16/19 20:59 Dextrose 50% Syringe IV PUSH PRN PRN Hypoglycemia Protocol Enoxaparin Sodium 40 mg 12/18/19 15:00 12/18/19 16:24 Lovenox SUB-Q 40 mg DAILY@1500 CRISPIN Administration Famotidine 20 mg 12/17/19 21:00 12/19/19 08:19 Pepcid Iv IV PUSH 20 mg Q12HR CRISPIN Administration Glucagon 1 mg 12/16/19 20:59 Glucagon For Inj IM PRN PRN Hypoglycemia Protocol Glucose 15 gm 12/16/19 20:59 Glutose 15 PO PRN PRN Hypoglycemia Protocol Heparin Sodium (Beef Lung) 50 units 12/19/19 09:00 12/19/19 08:19 Heparin Flush 50 Units/5 Ml IV PUSH Not Given QAM CRISPIN Heparin Sodium (Beef Lung) 50 units 12/18/19 19:40 Heparin Flush 50 Units/5 Ml IV PUSH PRN PRN after intermittent infusion Heparin Sodium (Beef Lung) 50 units 12/18/19 19:40 Heparin Flush 50 Units/5 Ml IV PUSH PRN PRN after blood draws
--- NOTE | 2019-12-19 14:10 | WPDINFPN2 ---
Progress Note: A&P Assessment and Plan (1) Bacteremia: Code(s): R78.81 - Bacteremia Status: Acute Assessment and Plan: 1. Strep gallolyticus (ex S bovis) bacteremia with infection. Source = large intestine. 2. Metastatic sigmoid adenocarcinoma 3. Leukopenia, mild with acceptable ANC, wbc back to normal 4. Bowel obstruction REC (antibiotic # 3) Ctx # 1 / 4 days, through 12/21, followed by 7 days oral ampicillin 500 q6hour. Ok discharge planning, as long as he can get his last dose here as an outpatient (not possible on weekends). Discussed. Subjective Date/time seen: 12/19/19 14:10 Interval history: no diarrhea no abd pain no n/v. 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 Exam Narrative: Exam Narrative: afebrile Const: General: no acute distress Eyes: General: appearance normal, both eyes and all related structures Resp: Effort & Inspection: normal respiratory effort Auscultation: clear to auscultation bilaterally Cardio: Rate: regular rate Rhythm: regular rhythm Heart sounds: no gallops and no murmurs Other: Chest : accessed port , no skin breakdown no hematoma GI: Inspection: non-distended GI Palp: Yes Soft to palpation, No Tenderness to palpation present (GI) and No Guarding due to palpation present (GI) Objective Data Vital Signs Vital Signs: Vital Signs - 24 hr 12/18/19 16:00 12/18/19 21:52 12/19/19 05:11 Temperature 36.9 C 36.2 C L 36.9 C Pulse Rate 82 78 73 Respiratory Rate 18 16 16 Blood Pressure 135/80 122/79 130/86 Pulse Oximetry 100 100 100 12/19/19 08:27 Temperature Pulse Rate Respiratory Rate 16 Blood Pressure Pulse Oximetry 100 Intake/Output Intake/Output: Intake & Output 12/16/19 12/17/19 12/18/19 12/19/19 23:59 23:59 23:59 23:59 Intake Total 1050 2100 3990 2402 Output Total 1350 200 650 Balance 9082 139 4940 1752 Meds/Results Medications: Active Medications Generic Name Dose Route Start Last Admin Trade Name Freq PRN Reason Stop Dose Admin Dextrose 12.5 gm 12/16/19 20:59 Dextrose 50% Syringe IV PUSH PRN PRN Hypoglycemia Protocol Enoxaparin Sodium 40 mg 12/18/19 15:00 12/18/19 16:24 Lovenox SUB-Q 40 mg DAILY@1500 CRISPIN Administration Famotidine 20 mg 12/17/19 21:00 12/19/19 08:19 Pepcid Iv IV PUSH 20 mg Q12HR CRISPIN Administration Glucagon 1 mg 12/16/19 20:59 Glucagon For Inj IM PRN PRN Hypoglycemia Protocol Glucose 15 gm 12/16/19 20:59 Glutose 15 PO PRN PRN Hypoglycemia Protocol Heparin Sodium (Beef Lung) 50 units 12/19/19 09:00 12/19/19 08:19 Heparin Flush 50 Units/5 Ml IV PUSH Not Given QAM CRISPIN Heparin Sodium (Beef Lung) 50 units 12/18/19 19:40 Heparin Flush 50 Units/5 Ml IV PUSH PRN PRN after intermittent infusion Heparin Sodium (Beef Lung) 50 units 12/18/19 19:40 Heparin Flush 50 Units/5 Ml IV PUSH PRN PRN after blood draws Heparin Sodium (Porcine) 500 units 12/18/19 19:40 Heparin Sod Flush 100 Units/Ml IV PUSH PRN PRN see comments below Dextrose/Sodium Chloride 1,000 mls @ 70 mls/hr 12/16/19 19:50 12/19/19 13:29 Dextrose 5% Sodium Chloride 0.9% IV CONT 70 mls/hr .[id number] CRISPIN Administration Dextrose 1,000 mls @ 100 mls/hr 12/16/19 20:59 Dextrose 5% 1,000 Ml IVPB PRN PRN Hypoglycemia Protocol Ceftriaxone Sodium/Dextrose 1 gm in 50 mls @ 100 mls/hr 12/19/19 13:59 Rocephin 1 Gm/D5w 50 Ml IVPB 12/19/19 14:28 ONCE STA Ceftriaxone Sodium/Dextrose 1 gm in 50 mls @ 100 mls/hr 12/20/19 10:00 Rocephin 1 Gm/D5w 50 Ml IVPB Q24H CRISPIN Insulin Aspart 2 - 5 units 12/17/19 00:00 12/19/19 12:12 Novolog SUB-Q Not Given Q6HR [facility] Protocol Ondansetron HCl 4 mg 12/16/19 20:05 12/17/19 20:11 Zofran Inj IV PUSH 4 mg Q4H PRN Administration Nausea Potassium Chloride 40 meq 12/19/19 18:00 K
--- NOTE | 2019-12-19 14:28 | PM.IMPN ---
Progress Note: A&P Assessment and Plan (1) Bacteremia: Code(s): R78.81 - Bacteremia Status: Acute Assessment and Plan: -----strep gallol ssp pasteuruanus in both blood cultures. Not uncommon for colon scancer. Spoke with Dr. Aggarwal and will transition to ceftriaxone today. he will receive IV abx through sunday and will likely discharge sunday morning. He will come back for one dose of ceftriaxone on sunday outpt and then will transition to oral abx there after. (2) Small bowel obstruction: Code(s): K56.609 - Unspecified intestinal obstruction, unspecified as to partial versus complete obstruction Status: Acute Assessment and Plan: -----small-bowel obstruction noted due to abnormal thickening of the distal small bowel which could be infectious, from metastatic disease, or due to chemotherapy. Patient is not having any abdominal pain in this area and he is not having any nausea or vomiting. He had a BM today and xray looks like sbo is resolving. Continue to advance diet. (3) Nausea & vomiting: Qualifiers: Vomiting Intractability: non-intractable Vomiting type: unspecified Qualified Code(s): R11.2 - Nausea with vomiting, unspecified Code(s): R11.2 - Nausea with vomiting, unspecified Status: Acute Assessment and Plan: -----resolved. Secondary to SBO. Antiemetics as needed. (4) Leukopenia: Qualifiers: Leukopenia type: unspecified Qualified Code(s): D72.819 - Decreased white blood cell count, unspecified Code(s): D72.819 - Decreased white blood cell count, unspecified Status: Acute Assessment and Plan: -----improved. Likely chemotherapy induced. Monitor CBCd. Oncology consulted and note reviewed. (5) Colon cancer: Qualifiers: Colon location: unspecified part of colon Qualified Code(s): C18.9 - Malignant neoplasm of colon, unspecified Code(s): C18.9 - Malignant neoplasm of colon, unspecified Status: Chronic Assessment and Plan: -----Metastatic colon cancer - Continue Heme-Onc recommendations. (6) Anemia: Qualifiers: Anemia type: unspecified type Qualified Code(s): D64.9 - Anemia, unspecified Code(s): D64.9 - Anemia, unspecified Status: Chronic Assessment and Plan: ----Likely chemotherapy induced as well as colon cancer. No signs of acute blood loss. Monitor H/H, transfuse prn. (7) Pre-diabetes: Code(s): R73.03 - Prediabetes Status: Chronic Assessment and Plan: -----Accuchecks, SSI coverage, hypoglycemic protocol. Additional Plan Date of service was 12/16/2019 at 8 pm. Subjective Date/time seen: 12/19/19 14:28 Interval history: Pt is a 59year-old male here for small bowel obstruction with known history of colon cancer. Patient was seen today and is doing well. He is not having any nausea, vomiting or abdominal pain. he has had liquids so far and is now having liquid stool. He feels stronger today. Exam Narrative: Exam Narrative: General: Well developed well nourished patient resting comfortably in bed in NAD HEENT: normocephalic Neck: supple Neuro: Alert and oriented x 4. CV:RRR Resp:CTA Abd: Soft, non distended. No pain to palpation Positive bowel sounds Extremities: No swelling, erythema, or pain to palpation. Objective Data Vital Signs Vital Signs: Vital Signs - 24 hr 12/18/19 16:00 12/18/19 21:52 12/19/19 05:11 Temperature 98.4 F 97.2 F L 98.5 F Pulse Rate 82 78 73 Respiratory Rate 18 16 16 Blood Pressure 135/80 122/79 130/86 Pulse Oximetry 100 100 100 12/19/19 08:27 Temperature Pulse Rate Respiratory Rate 16 Blood Pressure Pulse Oximetry 100 Intake/Output Intake/Output: Intake & Output 12/16/19 12/17/19 12/18/19 12/19/19 23:59 23:59 23:59 23:59 Intake Total 1050 2100 3990 2402 Output Total 1350 200 650 Balance 4579 612 2410 1752
[2019-12-19 14:48] VITALS: BP 142/91; PULSE 76; RESP 14; TEMP 36.8; O2SAT 100
[2019-12-19 16:22] LABS: Glucose Point of Care 132 (65-105)
[2019-12-19] MEDS: ENOXAPARIN 40 MG/0.4 ML SYRINGE SUB-Q (16:39)
[2019-12-19 22:00] VITALS: BP 131/89; PULSE 74; RESP 16; TEMP 36.8; O2SAT 99
[2019-12-19 23:23] LABS: Glucose Point of Care 108 (65-105)
[2019-12-20 06:00] VITALS: BP 135/86; PULSE 76; RESP 18; TEMP 36.6; O2SAT 100
[2019-12-20] MEDS: DEXTROSE 5%/0.9% SOD CHL 1,000 ML 70 ML IV CONT ×2 (06:18→20:00)
[2019-12-20] MEDS: CENTRAL LINE FLUSH 10 ML IV PUSH (06:33)
[2019-12-20 06:36] LABS: Glucose Point of Care 105 (65-105)
[2019-12-20 06:44] LABS: Basophils Percent Auto 0.3 % (0.2-1.2); Eosinophils Absolute Auto 0.1 K/mm3 (0-0.3); Eosinophils Percent Auto 0.9 % (0-4.4); Hematocrit 27.7 % (42.0-52.0); Hemoglobin 8.5 g/dL (14.0-18.0); Immature Granulocyte Absolute 0.13 K/mm3 (0.00-0.031); Immature Granulocyte Percent A 1.5 % (0-0.5); Lymphocytes Absolute Auto 1.62 K/mm3 (0.9-3.2); Lymphocytes Percent Auto 18.6 % (18.3-44.2); Mean Corpuscular HGB Conc 30.7 g/dl (32-36); Mean Corpuscular Hemoglobin 23.4 pg (26-34); Mean Corpuscular Volume 76.3 fl (80-100); Mean Platelet Volume 9.1 fl (7.4-10.4); Monocytes Absolute Auto 0.6 K/mm3 (0.1-0.6); Monocytes Percent Auto 6.7 % (2.6-8.5); Neutrophils Absolute Auto 6.3 K/mm3 (1.3-6.7); Nucleated Red Blood Cells Perc 0.3 % (0.0-0.2); Platelet Count Result 460 k/mm3 (150-375); Red Blood Count 3.63 M/mm3 (4.6-6.20); Red Cell Distribution Width 26.9 % (11.5-14.5); White Blood Count 8.7 K/mm3 (4.5-10.0)
[2019-12-20 06:57] LABS: Calcium 8.2 mg/dL (8.4-10.2); Carbon Dioxide 24 mmol/L (22-30); Chloride 106 mmol/L (98-107); Estimated CRCL calculation 105 ml/min; Estimated Glomerular Filt Rate > 60; Glucose 113 mg/dL (75-110); Potassium 3.1 mmol/L (3.4-5.0); Sodium 136 mmol/L (137-145)
[2019-12-20 07:04] LABS: Blood Urea Nitrogen < 2 mg/dL (9-20)
[2019-12-20 08:00] VITALS: PULSE 76; RESP 18; O2SAT 100
[2019-12-20] MEDS: POTASSIUM CHLORIDE 20 MEQ TABLET 40 MEQ PO ×2 (09:08→18:26)
[2019-12-20] MEDS: FAMOTIDINE 20 MG/2 ML VIAL IV PUSH ×2 (09:08→20:00)
--- NOTE | 2019-12-20 10:11 | PM.IMPN ---
Progress Note: A&P Assessment and Plan (1) Bacteremia: Code(s): R78.81 - Bacteremia Status: Acute Assessment and Plan: -----strep gallol ssp pasteuruanus in both blood cultures. Not uncommon for colon scancer. Spoke with Dr. Aggarwal and will continue ceftriaxone today and will get another dose tomorrow and likely be discharged. He will come back for one dose of ceftriaxone on sunday outpt and then will transition to oral abx there after. (2) Small bowel obstruction: Code(s): K56.609 - Unspecified intestinal obstruction, unspecified as to partial versus complete obstruction Status: Acute Assessment and Plan: -----small-bowel obstruction noted due to abnormal thickening of the distal small bowel which could be infectious, from metastatic disease, or due to chemotherapy. Patient is not having any abdominal pain in this area and he is not having any nausea or vomiting. He had a BM today and xray looks like sbo is resolving. Continue to advance diet. (3) Nausea & vomiting: Qualifiers: Vomiting Intractability: non-intractable Vomiting type: unspecified Qualified Code(s): R11.2 - Nausea with vomiting, unspecified Code(s): R11.2 - Nausea with vomiting, unspecified Status: Acute Assessment and Plan: -----resolved. Secondary to SBO. Antiemetics as needed. (4) Leukopenia: Qualifiers: Leukopenia type: unspecified Qualified Code(s): D72.819 - Decreased white blood cell count, unspecified Code(s): D72.819 - Decreased white blood cell count, unspecified Status: Acute Assessment and Plan: -----improved. Likely chemotherapy induced. Monitor CBCd. Oncology consulted and note reviewed. (5) Colon cancer: Qualifiers: Colon location: unspecified part of colon Qualified Code(s): C18.9 - Malignant neoplasm of colon, unspecified Code(s): C18.9 - Malignant neoplasm of colon, unspecified Status: Chronic Assessment and Plan: -----Metastatic colon cancer - Continue Heme-Onc recommendations. (6) Anemia: Qualifiers: Anemia type: unspecified type Qualified Code(s): D64.9 - Anemia, unspecified Code(s): D64.9 - Anemia, unspecified Status: Chronic Assessment and Plan: ----Likely chemotherapy induced as well as colon cancer. No signs of acute blood loss. Monitor H/H, transfuse prn. (7) Pre-diabetes: Code(s): R73.03 - Prediabetes Status: Chronic Assessment and Plan: -----Accuchecks, SSI coverage, hypoglycemic protocol. Additional Plan Subjective Date/time seen: 12/20/19 10:11 Interval history: Pt is a 59year-old male here for small bowel obstruction with known history of colon cancer. Patient was seen today and states he is doing okay. He is still on a full liquid diet and does not want advanced to regular diet. When asked, he just simply does not want to. He is not having any nausea, vomiting or abdominal pain with this. We had a discussion that he cannot be discharged until he takes a regular diet so he may try regular diet later tonight. Overall, he feels improved. He has some formed stools this morning but did have diarrhea overnight. He denies chest pain, shortness of breath, fevers, chills, or leg swelling. Exam Narrative: Exam Narrative: General: Well developed well nourished patient resting comfortably in bed in NAD HEENT: normocephalic Neck: supple Neuro: Alert and oriented x 4. CV:RRR no murmurs Resp:CTA Abd: Soft, non distended. No pain to palpation Positive bowel sounds Extremities: No swelling, erythema, or pain to palpation. Objective Data Vital Signs Vital Signs: Vital Signs - 24 hr 12/19/19 14:48 12/19/19 22:00 12/20/19 06:00 Temperature 98.2 F 98.2 F 97.8 F Pulse Rate 76 74 76 Respiratory Rate 14 16 18 Blood Pressure 142/91 H 131/89 135/86 Pulse Oximetry 100 99 100
[2019-12-20 11:39] LABS: Glucose Point of Care 163 (65-105)
[2019-12-20 14:00] VITALS: BP 128/70; PULSE 78; RESP 16; TEMP 36.4; O2SAT 100
[2019-12-20] MEDS: ENOXAPARIN 40 MG/0.4 ML SYRINGE SUB-Q (16:13)
[2019-12-20 16:25] LABS: Glucose Point of Care 102 (65-105)
[2019-12-20 22:00] VITALS: BP 138/88; PULSE 81; RESP 18; TEMP 37.2; O2SAT 100
[2019-12-21 00:50] LABS: Glucose Point of Care 111 (65-105)
[2019-12-21 05:43] VITALS: BP 127/80; PULSE 66; RESP 16; TEMP 36.2; O2SAT 100
[2019-12-21 05:47] LABS: Glucose Point of Care 123 (65-105)
[2019-12-21 05:47] LABS: Glucose Point of Care 42 (65-105)
--- NOTE | 2019-12-21 05:48 | PC.NURSE ---
Pt critical glucose was not a true critical- user error r/t sample being diluted
[2019-12-21 06:09] LABS: Blood Urea Nitrogen 2 mg/dL (9-20); Calcium 8.1 mg/dL (8.4-10.2); Carbon Dioxide 26 mmol/L (22-30); Chloride 106 mmol/L (98-107); Estimated CRCL calculation 105 ml/min; Estimated Glomerular Filt Rate > 60; Glucose 146 mg/dL (75-110); Potassium 3.6 mmol/L (3.4-5.0); Sodium 135 mmol/L (137-145)
[2019-12-21 08:00] VITALS: PULSE 66; RESP 16; O2SAT 100
--- NOTE | 2019-12-21 08:30 | PM.DS ---
DS: Admitting Diagnosis Admitting Diagnosis Admitting Diagnosis: Unspecified intestinal obstruction, unspecified as to partial versus complete obstruction DS: Discharge Diagnosis Discharge Diagnosis (1) Bacteremia: Code(s): R78.81 - Bacteremia Status: Acute Assessment and Plan: -----strep gallol ssp pasteuruanus in both blood cultures. Not uncommon for colon cancer. Spoke with Dr. Aggarwal patient will receive 1 more day of ceftriaxone tomorrow morning as an outpatient and then complete 5 more days of ampicillin. Patient feels back to baseline, vitals are stable. No murmurs (2) Small bowel obstruction: Code(s): K56.609 - Unspecified intestinal obstruction, unspecified as to partial versus complete obstruction Status: Acute Assessment and Plan: -----resolved. Patient was eating a normal diet without abdominal pain at discharge. Small-bowel obstruction noted due to abnormal thickening of the distal small bowel which could be infectious, from metastatic disease, or due to chemotherapy. (3) Nausea & vomiting: Qualifiers: Vomiting Intractability: non-intractable Vomiting type: unspecified Qualified Code(s): R11.2 - Nausea with vomiting, unspecified Code(s): R11.2 - Nausea with vomiting, unspecified Status: Acute Assessment and Plan: -----resolved. Secondary to SBO. (4) Leukopenia: Qualifiers: Leukopenia type: unspecified Qualified Code(s): D72.819 - Decreased white blood cell count, unspecified Code(s): D72.819 - Decreased white blood cell count, unspecified Status: Acute Assessment and Plan: -----improved. Likely chemotherapy induced. Follow-up with oncology (5) Colon cancer: Qualifiers: Colon location: unspecified part of colon Qualified Code(s): C18.9 - Malignant neoplasm of colon, unspecified Code(s): C18.9 - Malignant neoplasm of colon, unspecified Status: Chronic Assessment and Plan: -----Metastatic colon cancer - Continue Heme-Onc recommendations. (6) Anemia: Qualifiers: Anemia type: unspecified type Qualified Code(s): D64.9 - Anemia, unspecified Code(s): D64.9 - Anemia, unspecified Status: Chronic Assessment and Plan: ----Likely chemotherapy induced as well as colon cancer. No signs of acute blood loss (7) Pre-diabetes: Code(s): R73.03 - Prediabetes Status: Chronic Assessment and Plan: -----patient educated DS: Summary Hospital Course Reason for hospitalization: Bacteremia small bowel obstruction Hospital Course: Patient is a 59-year-old male with known colon cancer receiving chemo who presented emergency room for vomiting and slightly altered mental status. White blood cell count initially 1.8, hemoglobin 9.9, hematocrit 32.0, platelets 325. BMP relatively normal with exception of hyponatremia of 130. Showed focal thickening of the distal sigmoid colon and rectum as well as distal small bowel and likely small-bowel obstructions secondary to this thickening. It did show his widespread liver metastases. Surgery was consulted and saw the patient and the patient improved with conservative measures. The day of discharge he was eating a regular diet without any abdominal pain and he was having multiple bowel movements. Why he was here, his blood cultures became positive for Streptococcus gallolyticus likely from colon cancer/inflammation seen on imaging. Infectious Disease was consulted and the patient was on Zosyn and transition to ceftriaxone. He is also getting 1 more day of IV ceftriaxone the day after discharge and then will finish off the 10 day course with ampicillin orally. The patient did well with this treatment was back to baseline the day of discharge. He was educated on signs and symptoms come and for discharged stable condition. Status at Discharge Functional statu
[2019-12-21] MEDS: FAMOTIDINE 20 MG/2 ML VIAL IV PUSH (08:37)
[2019-12-21] MEDS: HEPARIN SOD FLUSH 500 UNITS/5 ML SYRINGE IV PUSH (10:04)
[2019-12-21] MEDS: SALINE LOCK FLUSH 10 ML IV PUSH (10:09)
--- NOTE | 2019-12-22 07:19 | P.PNINF_ITS ---
Progress Note: A&P Assessment and Plan (1) Bacteremia: Code(s): R78.81 - Bacteremia Status: Acute Assessment and Plan: 1. Strep gallolyticus (ex S bovis) bacteremia with infection. Source = large intestine. 2. Metastatic sigmoid adenocarcinoma 3. Leukopenia, mild with acceptable ANC, wbc back to normal 4. Bowel obstruction REC (antibiotic # 3) Ctx # 1 / 4 days, through 12/21, followed by 7 days oral ampicillin 500 q6hour. Ok discharge planning, as long as he can get his last dose here as an outpatient (not possible on weekends). Discussed. [The above assessment and plan, as well as face to face contact and exam, were composed entirely at the time of service 12/19/19. However the note did not save despite my actions to do so. Hence re-saving now. BP 12/22/19 0723] Subjective Date/time seen: 12/19/19 1330 Interval history: wants to go home Exam Narrative: Exam Narrative: afebrile Const: General: no acute distress Eyes: General: appearance normal, both eyes and all related structures Resp: Effort & Inspection: normal respiratory effort Auscultation: clear to auscultation bilaterally Cardio: Rate: regular rate Rhythm: regular rhythm Heart sounds: no gallops and no murmurs GI: Inspection: non-distended GI Palp: Yes Soft to palpation, No Tenderness to palpation present (GI) and No Guarding due to palpation present (GI) Skin: General skin exam: normal color and no rashes or lesions noted Objective Data Vital Signs Vital Signs: Vital Signs - 24 hr 12/21/19 08:00 Pulse Rate 66 Respiratory Rate 16 Pulse Oximetry 100 Intake/Output Intake/Output: Intake & Output 12/19/19 12/20/19 12/21/19 12/22/19 23:59 23:59 23:59 23:59 Intake Total 4052 3880 1666 Output Total 650 1800 Balance 3402 2080 1666 Meds/Results Radiology Results: ITS Impressions Chest X-Ray 12/16/19 18:08 IMPRESSION: 1: NO ACUTE CARDIOPULMONARY DISEASE. 2: Dilated small bowel loops in the upper abdomen, ileus versus obstruction. Head CT 12/16/19 18:51 IMPRESSION: 1. No acute intracranial abnormality. Abdomen/Pelvis CT 12/16/19 19:00 IMPRESSION: 1. Abnormal focal thickening of the distal sigmoid colon/rectum with adjacent phlegmonous change which may represent the site of malignancy. There is a long segment of abnormally thickened distal colon as well as distal small bowel, most likely infectious, although metastatic disease is not excluded. 2: Small bowel obstruction secondary to abnormal thickening of the distal small bowel with transition in the right mid abdomen. 3: Widespread liver metastases. Due to the extensive liver abnormality is diffi cult to determine if there has been significant interval change. Abdomen X-Ray 12/18/19 07:24 IMPRESSION: 1. Nonspecific bowel gas pattern which could be related to ileus or resolving small bowel obstruction. 2. Suggestion of haustral fold thickening at the hepatic flexure of the colon consistent with colitis.
== END 2019-12-21 11:10 | disposition home or self-care (01) | DRG 724 ==
LOC: ANHED 20:11 → ANH3MED 20:20
PROVIDERS: Physician Assistant; Admitting Provider Family Medicine; Emergency Provider Emergency Medicine; Family Provider Internal Medicine Hematology & Oncology; PCP Internal Medicine Medical Oncology; Visit Provider Internal Medicine
DX: R78.81 Bacteremia (principal); K56.690 Other partial intestinal obstruction; K52.9 Noninfective gastroenteritis and colitis, unspecified; C18.9 Malignant neoplasm of colon, unspecified; D50.0 Iron deficiency anemia secondary to blood loss (chronic); D70.1 Agranulocytosis secondary to cancer chemotherapy; C78.7 Secondary malignant neoplasm of liver and intrahepatic bile duct; R11.2 Nausea with vomiting, unspecified; R73.03 Prediabetes; T45.1X5A Adverse effect of antineoplastic and immunosuppressive drugs, initial encounter
CPT/HCPCS: 36415; 70450; 71046; 74018; 74177; 80048; 80053; 80076; 81003; 83605; 83735; 84100; 85025; 86140; 87040; 87077; 87186; 93005; 96360; 96361; 96365; 96375; 99285; A9270; G0378; G0379; J0692; J0696; J1642; J1650; J1815; J2405; J2543; J3480; J7030; J7042; Q9967

== ENCOUNTER 2019-12-22 09:46 | Outpatient (RCR) | payer OTHER, SELFPAY ==
[2019-12-22 10:00] VITALS: BP 129/82; PULSE 74; RESP 16; TEMP 36.8; O2SAT 99
[2019-12-22 11:07] VITALS: BP 137/89; PULSE 74; RESP 16; TEMP 36.4; O2SAT 99
[2019-12-22] MEDS: HEPARIN SOD FLUSH 500 UNITS/5 ML SYRINGE (11:08)
== END 2020-03-21 23:59 | disposition home or self-care (01) ==
LOC: ANHCPCTRAN 09:46
PROVIDERS: PCP Internal Medicine Medical Oncology; Visit Provider Physician Assistant
DX: R78.81 Bacteremia (principal)
CPT/HCPCS: 96365; J0696

== ENCOUNTER 2020-01-28 13:35 | Outpatient (CLI) | payer OTHER, SELFPAY ==
--- NOTE | ~2020-01-28 | CT_ITS ---
EXAMINATION: CT chest abdomen pelvis w con DATE: 01/28/2020 14:42 INDICATION: Colon cancer with liver metastases. TECHNIQUE: Computed tomography (CT) of the chest, abdomen, and pelvis was performed with 100 mL Omnip aque-350 intravenous contrast. Automated exposure control and iterative reconstruction technique were employed. The dose-length product was 868.34 mGy-cm. COMPARISON: CT abdomen and pelvis dated 12/16/2019 FINDINGS: CHEST CT: 3-4 mm nodule in the superior segment of the right lower lobe. Lungs are otherwise clear. No pleural effusion. Heart size is normal. No pericardial effusion. Atherosclerotic coronary artery calcific roger cification. Mild aortic valve calcific calcification. Thoracic aorta is normal in caliber with no dis section. Left subclavian central venous port catheter with distal tip at the midsuperior vena cava. M ild bilateral gynecomastia. No pathologically enlarged thoracic lymphadenopathy. Severe spondylosis a t C6-C7. Mild thoracic spondylosis. No suspicious lytic or blastic bone lesions. ABDOMEN/PELVIS CT: Continued interval decrease in size of the multiple hypoenhancing hepatic lesions consistent with res ponse to treatment of metastatic disease. For reference a previously 7.3 x 6.2 cm mass at the caudal right hepatic lobe has decreased to 5.3 x 4.3 cm. Gallbladder, spleen, pancreas, bilateral adrenal gl ands and right kidney are normal. Small regions of chronic cortical scarring at the lower pole of the left kidney likely sequela of prior infection or infarction. Bladder and prostate are unremarkable. Fat-containing bilateral inguinal hernias. Again seen is diffuse relatively uniform wall thickening a long the sigmoid: Consistent with colitis. Asymmetric wall thickening at the left side of the rectum with soft tissue infiltration into the perirectal fat now with more solid nodular appearance within t he region of more groundglass appearance concerning for progression of locally invasive metastatic di sease. No significant change in a few subcentimeter lymph nodes along the inferior mesenteric vein ly mph node chain which are also suspicious for metastatic disease. There are a few unchanged small scle rotic likely bone islands in the pelvis and proximal femurs. No interval change dating back to 018 and indeterminate 12 mm well-defined lytic lesion with peripheral sclerotic margins at the right femoral neck. IMPRESSION: 1. Asymmetric wall thickening at the left side of the rectum consistent with reported history of colo n cancer with progression of now more solid soft tissue infiltration of the adjacent left perirectal fat suspicious for locally invasive disease. 2. Continued decrease in size of multiple hypodense hepatic lesions consistent with response to treat ment of metastatic disease. 3. No interval change in a few subcentimeter lymph nodes along the inferior mesenteric vein chain whi ch are nonetheless large unexpected at this location suspicious for metastatic disease. 4. No evident intrathoracic metastatic disease. 5. No interval change since 11/03/2018 and indeterminate, indolent appearing lytic lesion with thin sc lerotic margins at the right femoral neck which could be either benign or metastatic. No other suspic ious bone lesions identified. 6. Relatively uniform wall thickening along the sigmoid colon consistent with colitis. Differential w ould include post radiation treatment in the appropriate clinical setting, infection, inflammatory sg wel disease or less likely ischemia. Reviewed, dictated and finalized at [facility]. IMPRESSION: 1. Asymmetric wall thickening at the left side of the rectum consistent with re ported history of colon cancer with progression of now more solid soft tissue i nfiltration of the adjacent left chivo
== END 2020-01-28 13:36 | disposition home or self-care (01) ==
PROVIDERS: Visit Provider Internal Medicine Medical Oncology
DX: C78.7 Secondary malignant neoplasm of liver and intrahepatic bile duct (principal); C18.7 Malignant neoplasm of sigmoid colon; R59.0 Localized enlarged lymph nodes
CPT/HCPCS: 71260; 74177; Q9967

== ENCOUNTER 2020-04-06 13:13 | Outpatient (CLI) | payer OTHER, SELFPAY ==
--- NOTE | ~2020-04-06 | CT_ITS ---
EXAMINATION: CT chest abdomen pelvis w con DATE: 04/06/2020 13:44 INDICATION: Colon cancer TECHNIQUE: Computed tomography (CT) of the chest was performed with 100 cc Omnipaque 350 intravenous contrast. The dose-length product was 623.40 mGy-cm. Automated exposure control and iterative reconst ruction technique were employed. COMPARISON: CT dated 01/28/2020 FINDINGS: Evaluation of lung parenchyma limited by motion artifact. 4 mm nodule superior segment righ t lower lobe, image 45, without significant change allowing for technique. No endobronchial lesions. No new pulmonary nodules or masses. No significant pleural or pericardial effusion. There is atherosc lerosis of the aorta and coronary arteries. Decreased in size and number of abnormally enhancing liver masses, consistent with response to therap y. For example abnormally enhancing mass right hepatic lobe inferiorly measures 4.7 x 2.8 cm greatest axial dimension compared with 5.5 x 3.3 cm on prior examination. The spleen, pancreas, adrenal glands and kidneys are unremarkable. Gallbladder is contracted with pos sible pericholecystic fluid. There is persistent abnormal thickening of the sigmoid colon extending t o the rectum. There is eccentric nodular thickening of the rectum with infiltration of the perirectal fat. These findings are not significantly changed. Bladder wall is diffusely thickened. Prostate gla nd is enlarged. No acute osseous abnormality. Mild thoracic and lumbar spondylosis. Mildly prominent retroperitoneal lymph nodes without significant change. Stable lytic and sclerotic l esions of the femoral necks, likely benign. IMPRESSION: 1. Persistent unchanged asymmetric wall thickening left side of the rectum consistent with known ping gnancy with evidence for locally invasive disease involving the perirectal fat. 2: Continued improvement of number and size of hypovascular liver metastases, consistent with respons e to therapy. 3: Persistent thickening of the sigmoid colon extending to the rectum, suspicious for colitis. Differ ential diagnosis includes radiation therapy change. Reviewed, dictated and finalized at [facility]. IMPRESSION: 1. Persistent unchanged asymmetric wall thickening left side of the rectum cons istent with known malignancy with evidence for locally invasive disease involvi ng the perirectal fat. 2: Continued improvement of number and size of hypovascular liver metastases, c onsistent with response to therapy. 3: Persistent thickening of the sigmoid colon extending to the rectum, suspicio us for colitis. Differential diagnosis includes radiation therapy change.
[2020-04-06 13:36] LABS: Estimated Glomerular Filt Rate > 60
== END 2020-04-06 13:14 | disposition home or self-care (01) ==
PROVIDERS: PCP Internal Medicine Medical Oncology; Visit Provider Internal Medicine Medical Oncology
DX: C18.7 Malignant neoplasm of sigmoid colon (principal); C78.7 Secondary malignant neoplasm of liver and intrahepatic bile duct
CPT/HCPCS: 71260; 74177; Q9967

== ENCOUNTER 2020-08-24 14:13 | Outpatient (CLI) | payer OTHER, SELFPAY ==
--- NOTE | ~2020-08-24 | CT_ITS ---
EXAMINATION: CT chest abdomen pelvis w con DATE: 08/24/2020 14:45 INDICATION: Restaging; metastatic sigmoid colon carcinoma TECHNIQUE: Computed tomography (CT) of the chest, abdomen, and pelvis was performed with 100 cc Omnip aque 350 intravenous contrast. Automated exposure control and iterative reconstruction technique were employed. Exam dose: 856.48 mGy-cm total exam DLP. COMPARISON: 04/06/2020 CT chest abdomen pelvis FINDINGS: CHEST CT: Left Port-A-Cath catheter again noted in superior vena cava. Normal heart size. No pericardial or pleural effusion. Normal size and homogeneous enhancement of the thyroid gland. No hilar or mediastinal mass lesion or lymphadenopathy. New 5 mm nodular opacity of the middle lobe (series 4 image 63). Otherwise no interval new or suspici ous enlarging lung mass is noted. ABDOMEN/PELVIS CT: Interval serial diminished size of partially calcified metastases of liver since 04/06/2020 and to a greater extent 01/28/2020. Left colostomy is again noted. Soft tissue thickening is again noted along the left lateral aspect of the rectosigmoid area. The spleen, pancreas, and adrenal glands and kidneys are unremarkable. There is atherosclerotic calcification but normal caliber of the abdominal aorta and iliac arteries. No intraperitoneal or retroperitoneal or pelvic lymphadenopathy is noted. Prostate enlargement and calcifications. Bilateral fat-containing inguinal hernias. No suspicious osteolytic or osteoblastic lesions are noted. IMPRESSION: Further improvement of hepatic metastatic disease since 01/28/2020 and 04/06/2020 New 5 mm nodular opacity middle lobe; diffusion diagnosis includes pulmonary granuloma, less likely m etastasis Reviewed, dictated and finalized at [facility]. Reviewed, dictated and finalized at [facility]. IMPRESSION: Further improvement of hepatic metastatic disease since 01/28/2020 and 04/06/2020 New 5 mm nodular opacity middle lobe; diffusion diagnosis includes pulmonary gr anuloma, less likely metastasis
[2020-08-24 14:44] LABS: Estimated Glomerular Filt Rate > 60
== END 2020-08-24 14:14 | disposition home or self-care (01) ==
PROVIDERS: PCP Nurse Practitioner Family; Visit Provider Internal Medicine Medical Oncology
DX: C18.7 Malignant neoplasm of sigmoid colon (principal); N40.0 Benign prostatic hyperplasia without lower urinary tract symptoms; K40.90 Unilateral inguinal hernia, without obstruction or gangrene, not specified as recurrent
CPT/HCPCS: 71260; 74177; Q9967

== ENCOUNTER 2020-10-26 15:09 | Outpatient (CLI) | payer OTHER, SELFPAY ==
--- NOTE | ~2020-10-26 | CT_ITS ---
EXAMINATION: CT chest abdomen pelvis wo con DATE: 10/26/2020 15:32 INDICATION: Colon cancer TECHNIQUE: Transaxial computed tomographic images of the chest, abdomen, and pelvis were obtained wit hout intravenous contrast. The dose-length product (DLP) was 930.28 mGy-cm. Automated exposure contro l and iterative reconstruction technique were employed. COMPARISON: 08/24/2020 FINDINGS: CHEST CT: There is an enlarging 7 mm nodule of the right middle lobe on image 60. A previously described 4 mm n odule in the superior segment of the right lower lobe appears stable but is difficult to evaluate due to motion artifact. There is no pleural effusion or pneumothorax. No acute airspace opacities are id entified. A left subclavian Port-A-Cath ends with its tip in the distal superior vena cava. The heart size is normal. Calcified coronary artery atherosclerosis is noted. There are no pathologically enla rged thoracic lymph nodes. There is mild bilateral gynecomastia. ABDOMEN/PELVIS CT: Although limited by the absence of intravenous contrast, hepatic metastases appear to be stable to sl ightly decreased in size since the comparison examination. For instance, a 2.6 cm partially calcified metastasis in liver segment V previously measured approximately 3.1 cm. No definite new metastases a re seen. The spleen, pancreas, gallbladder, and adrenal glands are normal. The kidneys are unremarkab le. There is calcified atherosclerosis of the aorta and many of the other arteries. No pathologically enlarged abdominal or pelvic lymph nodes are identified. There is no free intraperitoneal gas or vasiliy dence of bowel obstruction. There is a loop colostomy of the left lower quadrant. The appendix is nor mal. There appears to be persistent asymmetric wall thickening at the left aspect of the rectum. Ther e is a stable lytic lesion with thin sclerotic margins of the right femoral neck. IMPRESSION: 1. Enlarging nodule of the right middle lobe concerning for metastatic disease. 2. Apparent stable to decreased liver metastases. 3. Persistent asymmetric wall thickening at the left lateral rectal wall. Reviewed, dictated and finalized at [facility].
== END 2020-10-26 15:10 | disposition home or self-care (01) ==
PROVIDERS: Visit Provider Internal Medicine Medical Oncology
DX: C18.7 Malignant neoplasm of sigmoid colon (principal); C78.7 Secondary malignant neoplasm of liver and intrahepatic bile duct
CPT/HCPCS: 71250; 74176

== ENCOUNTER 2021-01-04 13:09 | Outpatient (CLI) | payer OTHER, SELFPAY ==
--- NOTE | ~2021-01-04 | CT_ITS ---
EXAMINATION: CT chest abdomen pelvis w con DATE: 01/04/2021 14:12 INDICATION: Malignant neoplasm of the sigmoid colon, restaging TECHNIQUE: Transaxial computed tomographic images of the chest, abdomen, and pelvis were obtained aft er the administration of 100 cc of Omnipaque 350 intravenous contrast. The dose-length product (DLP) was 957.09 mGy-cm. Automated exposure control and iterative reconstruction technique were employed. COMPARISON: 10/26/2020, 08/24/2020 FINDINGS: CHEST CT: An 8 mm nodule of the right middle lobe continues to enlarge. A 7 mm nodule in the superior segment o f the right lower lobe has increased in size. A left subclavian Port-A-Cath ends with its tip in the distal superior vena cava. The heart size is normal. Calcified coronary artery atherosclerosis is not ed. There is no pleural effusion or pneumothorax. The lungs are free of acute opacities. Bilateral gy necomastia is noted. There are no pathologically enlarged thoracic lymph nodes. ABDOMEN/PELVIS CT: There are multiple stable hepatic metastases, some of which are partially calcified. No new liver mas s is seen. The spleen, pancreas, gallbladder, and adrenal glands are normal. There is scarring in the lower pole of the left kidney. The right kidney is unremarkable. There is calcified atherosclerosis of the aorta and many of the other arteries. There is a loop colostomy of the left lower quadrant. Ec centric wall thickening of the left rectum persists without significant change. No pathologically enl arged abdominal or pelvic lymph nodes are identified. There is no free intraperitoneal gas or evidenc e of bowel obstruction. Again noted is a stable lytic lesion with thin sclerotic margins of the right femoral neck. IMPRESSION: 1. Enlarging nodules of the right middle and lower lobes concerning for metastatic disease. 2. Stable liver metastasis. 3. Stable asymmetric thickening of the left lateral rectal wall. Reviewed, dictated and finalized at [facility]. IMPRESSION: 1. Enlarging nodules of the right middle and lower lobes concerning for metasta tic disease. 2. Stable liver metastasis. 3. Stable asymmetric thickening of the left lateral rectal wall.
== END 2021-01-04 13:10 | disposition home or self-care (01) ==
PROVIDERS: Visit Provider Internal Medicine Medical Oncology
DX: C18.7 Malignant neoplasm of sigmoid colon (principal); C78.7 Secondary malignant neoplasm of liver and intrahepatic bile duct
CPT/HCPCS: 71260; 74177; Q9967

== ENCOUNTER 2022-03-24 09:23 | Outpatient (CLI) | payer OTHER, SELFPAY ==
--- NOTE | ~2022-03-24 | CT_ITS ---
EXAMINATION: CT chest abdomen pelvis w con DATE: 03/24/2022 10:58 INDICATION: Malignant neoplasm of sigmoid colon. TECHNIQUE: Computed tomography (CT) of the chest, abdomen, and pelvis was performed with 100 mL Omnip aque 350 intravenous contrast. Automated exposure control and iterative reconstruction technique were employed. The dose-length product was 763.73 mGy-cm. COMPARISON: CT chest, abdomen, and pelvis 01/04/2021 FINDINGS: CHEST CT: The lungs demonstrate peripheral septal thickening. There is an 8 mm nodule in right upper lobe that previously measured 4 mm. There are airspace opacities in posterior segment right upper lobe and supe rior segment right lower lobe, likely radiation pneumonitis. There are airspace opacities with volume loss in right middle lobe, likely radiation pneumonitis. No pleural effusion. There is a left subcla vian port with tip in superior vena cava. The heart size is normal. There are coronary artery calcifi cations. No pericardial effusion. There is bilateral gynecomastia. There is mild thoracic spondylosis . ABDOMEN/PELVIS CT: There are at least 7 masses in the kidneys that are mixed hyperdense and hypodense. High attenuation in some of the masses may be calcifications or changes of chemoembolization if the patient has that c linical history. A 4.9 x 4.0 cm mass in right hepatic lobe previously measured 3.6 x 2.7 cm. A 5.3 x 3.8 cm mass in left hepatic lobe previously measured 1.8 cm. There is a gallstone in the gallbladder, which is normal in size. The spleen is normal. There is a 1.7 cm hyperenhancing mass in the tail of the pancreas without change, likely a splenule. The adrenal glands and right kidney are normal. There is focal volume loss of left kidney inferior pole. There are bilateral inguinal hernias containing f at. There is a diverting colostomy in left abdomen. The appendix is normal. There are no dilated loop s of bowel. There are no pathologically enlarged lymph nodes. There is no free intraperitoneal fluid. There is wall thickening of the bladder, which may be secondary to radiation therapy. There is mild lumbar spondylosis. IMPRESSION: 1. Worsened liver masses and lung nodule, consistent with metastatic disease. Reviewed, dictated and finalized at [facility].
[2022-03-24 10:02] LABS: Estimated Glomerular Filt Rate > 60
== END 2022-03-24 09:24 | disposition home or self-care (01) ==
PROVIDERS: Visit Provider Internal Medicine Medical Oncology
DX: C18.7 Malignant neoplasm of sigmoid colon (principal); C78.7 Secondary malignant neoplasm of liver and intrahepatic bile duct
CPT/HCPCS: 71260; 74177; Q9967

== ENCOUNTER 2022-07-13 09:58 | Outpatient (CLI) | payer OTHER, SELFPAY ==
--- NOTE | ~2022-07-13 | CT_ITS ---
Clinical Indication: Colon cancer CT Scan of the Chest, Abdomen, and Pelvis with Contrast: Technique: Contiguous sections were acquired throughout the chest, abdomen, and pelvis after intraven ous administration of 100 cc of Omnipaque 350. Dose reduction technique was used on this scan by marie garciaing automated exposure control and iterative reconstruction technique. The dose-length product (DL P) was 898.60 mGy-cm. COMPARISON: 03/24/2022 Findings: There is no evidence of any significant mediastinal, hilar or axillary lymphadenopathy. Coronary ghulam ry calcifications are present. No aortic aneurysm or dissection. No large central pulmonary embolus. There is no evidence of pleural or pericardial effusion. Probable pulmonary nodule is increased in size, now measuring 1 cm in diameter (axial image 39). Irre gular area of consolidation at the peripheral right lung along the fissure is similar to prior exam ( axial image 44 for example). Additional area of consolidative change in the right middle lobe is also similar to prior exam. Extensive hepatic metastatic disease is again present, with probable mild interval increase in severa l lesions. The spleen, pancreas, gallbladder, adrenals and kidneys are within normal limits. No evid ence of aortic aneurysm. No lymphadenopathy. No bowel obstruction or bowel wall thickening. Left lower quadrant double barrel ostomy is present. Urinary bladder is unremarkable. Prostate gland and seminal vesicles are unremarkable. Impression: Mild interval progression of disease. Multiple hepatic masses are present, probably mildly increased in size. 1 cm right upper lobe pulmonary metastasis is mildly increased in size. There is of irregular consolidation the peripheral right lung, and in the right middle lobe, are vivi lar to prior exam. Consider post radiation pneumonitis versus other parenchymal disease. Reviewed, dictated and finalized at [facility]. [employer] Impression: Mild interval progression of disease. Multiple hepatic masses are present, prob ably mildly increased in size. 1 cm right upper lobe pulmonary metastasis is mi ldly increased in size. There is of irregular consolidation the peripheral right lung, and in the right middle lobe, are similar to prior exam. Consider post radiation pneumonitis ve rsus other parenchymal disease.
[2022-07-13 10:25] LABS: Estimated Glomerular Filt Rate > 60
== END 2022-07-13 09:59 | disposition home or self-care (01) ==
PROVIDERS: Visit Provider Internal Medicine Medical Oncology
DX: C18.7 Malignant neoplasm of sigmoid colon (principal); C78.7 Secondary malignant neoplasm of liver and intrahepatic bile duct
CPT/HCPCS: 71260; 74177; Q9967

== ENCOUNTER 2022-10-09 13:02 | Outpatient (CLI) | payer OTHER, SELFPAY ==
--- NOTE | ~2022-10-09 | CT_ITS ---
EXAMINATION: CT chest abdomen pelvis w con DATE: 10/09/2022 14:28 INDICATION: Malignant neoplasm of sigmoid colon. TECHNIQUE: Computed tomography (CT) of the chest, abdomen, and pelvis was performed with 100 mL Omnip aque 350 intravenous contrast. Automated exposure control and iterative reconstruction technique were employed. The dose-length product was 1010.01 mGy-cm. COMPARISON: Head CT 07/13/2022 FINDINGS: CHEST CT: The lung volumes are small. There is mild atelectasis bilaterally. There are approximately 4 nodules scattered in the lungs measuring up to 13 mm. For example, a cavitary 13 mm right upper lobe nodule p reviously measured 11 mm. A 9 mm cavitary nodule in left upper lobe previously measured 6 mm. Again s een are airspace opacities in posterior segment right upper lobe and superior segment right lower lob e, likely radiation pneumonitis. Again seen are airspace opacities with volume loss in right middle l obe, likely radiation pneumonitis. No pleural effusion. The heart size is normal. There are coronary artery calcifications. No pericardial effusion. There is a left chest subclavian port with tip in sup erior cavoatrial junction. There is mild bilateral gynecomastia. There is mild thoracic spondylosis. ABDOMEN/PELVIS CT: There are multiple masses in the liver, some with central hyperdensities that may be calcifications o r changes of chemoembolization if the patient has that clinical history. The largest mass measures 9. 8 x 7.7 cm in right hepatic lobe and previously measured 9.5 x 6.8 cm. A 7.2 x 5.6 cm mass in right h epatic lobe previously measured 6.3 x 5.6 cm. The gallbladder is normal in size. Gallbladder wall thi ckening is noted, which may be seen with interstitial edema, chronic cholecystitis, or chronic liver disease. The spleen, pancreas, adrenal glands, and right kidney are normal. There is cortical thinnin g of left kidney. There is diffuse bladder wall thickening which may be secondary to radiation therap y. There is eccentric wall thickening of the rectosigmoid. There is a diverting colostomy in left abd omen. There are no dilated loops of bowel. The appendix is normal. There are no pathologically enlarg ed lymph nodes. There is no free intraperitoneal fluid. There are bilateral hernias containing fat. T here is mild lumbar spondylosis. IMPRESSION: 1. Stable eccentric wall thickening of the rectosigmoid, likely primary malignancy. 2. Worsened liver masses and lung nodules, consistent with metastatic disease. Reviewed, dictated and finalized at location [facility]. IMPRESSION: 1. Stable eccentric wall thickening of the rectosigmoid, likely primary maligna ncy. 2. Worsened liver masses and lung nodules, consistent with metastatic disease.
[2022-10-09 13:45] LABS: Estimated Glomerular Filt Rate > 60
== END 2022-10-09 13:03 | disposition home or self-care (01) ==
PROVIDERS: Visit Provider Internal Medicine Medical Oncology
DX: C18.7 Malignant neoplasm of sigmoid colon (principal); C78.7 Secondary malignant neoplasm of liver and intrahepatic bile duct
CPT/HCPCS: 71260; 74177; Q9967

== ENCOUNTER 2022-10-23 10:31 | Outpatient (CLI) | payer OTHER, SELFPAY ==
--- NOTE | ~2022-10-23 | MR_ITS ---
EXAMINATION: MR MRCP wo/w con/w 3D wo ind DATE: 10/23/2022 12:33 INDICATION: Malignant neoplasm of sigmoid colon. TECHNIQUE: Magnetic resonance imaging (MRI) of the abdomen was performed without and with 17 mL Multi Pascale intravenous contrast. Sequences included coronal T2-weighted FS FSE, coronal T2-weighted FSE, a xial T1-weighted LAVA, coronal FS FIESTA, axial dual-echo T1-weighted SPGR, coronal lava-FLEX, sagitt al T2-weighted FSE, axial T2-weighted FSE, and axial DWI. Thick-slab T2-weighted FSE images were obta ined for magnetic resonance cholangiopancreatography (MRCP). Maximum intensity projection 3-D reconst ructions of the volumetric data were created by the technologist. Postcontrast sequences included cor onal LAVA-flex and time course of axial T1-weighted LAVA. COMPARISON: CT 10/09/2022 FINDINGS: ABDOMEN MRI: There are multiple masses in the liver. The largest measures 12.9 x 7.7 cm. The gallblad david is normal in size and contains sludge. Gallbladder wall thickening is noted. The spleen, pancreas , adrenal glands, and kidneys are normal. There is a diverting transverse colostomy. There are no dil ated loops of bowel. There are no pathologically enlarged lymph nodes. There is no free intraperitone al fluid. There is mild bilateral gynecomastia. ABDOMEN MRCP: The common duct is normal and measures 4 mm. IMPRESSION: 1. Multiple liver masses, stable from 10/09/2022, consistent metastatic disease. 2. Gallbladder sludge. Gallbladder wall thickening may be seen with interstitial edema, chronic cely cystitis, or chronic liver disease. Reviewed, dictated and finalized at location [facility]. IMPRESSION: 1. Multiple liver masses, stable from 10/09/2022, consistent metastatic disease. 2. Gallbladder sludge. Gallbladder wall thickening may be seen with interstitia l edema, chronic cholecystitis, or chronic liver disease.
== END 2022-10-23 10:32 | disposition home or self-care (01) ==
PROVIDERS: Visit Provider Internal Medicine Medical Oncology
DX: C18.7 Malignant neoplasm of sigmoid colon (principal); C78.7 Secondary malignant neoplasm of liver and intrahepatic bile duct; K83.1 Obstruction of bile duct; R93.5 Abnormal findings on diagnostic imaging of other abdominal regions, including retroperitoneum
CPT/HCPCS: 74183; 76376; A9577

== ENCOUNTER 2022-12-07 11:00 | Outpatient (CLI) | payer OTHER, SELFPAY ==
--- NOTE | ~2022-12-07 | MR_ITS ---
EXAMINATION: MR MRCP wo/w con/w 3D wo ind DATE: 12/07/2022 12:21 INDICATION: Malignant neoplasm of the sigmoid colon TECHNIQUE: Magnetic resonance imaging (MRI) of the abdomen was performed without and with intravenous contrast. Sequences included coronal T2-weighted SS-FSE ARC, coronal T2-weighted FS SS-FSE, coronal T2-weighted 2D FS FIESTA, Water:Coronal LAVA-Flex, sagittal T2-weighted SS-FSE ARC, axial SSFSE ARC, axial 3D DualEcho, axial DWI B=600, axial T1-weighted LAVA, FAT:Coronal LAVA-Flex, and coronal in and opposed phase LAVA-Flex. Thick-slab T2-weighted FRFSE-XL images were obtained for magnetic resonance cholangiopancreatography (MRCP). Maximum intensity projection 3-D reconstructions of the volumetric data were created by the technologist. Postcontrast sequences included a time course of axial T1-weig hted LAVA, FAT:Coronal LAVA-Flex, coronal in and opposed phase LAVA-Flex, and Water:Coronal LAVA-Flex . COMPARISON: 10/23/2022 CONTRAST: Multihance, 17 cc FINDINGS: ABDOMEN MRI: Again seen are multiple masses scattered throughout all lobes of the liver. The largest measures 13.0 x 7.7 cm in liver segment VIII. Masses in liver segments V and demonstrate interval increase in size. For instance, a 1.5 cm mass of liver segment previously measured 6 mm. There is sludge in the gallbladder which demonstrates unchanged mild wall thickening. The spleen, pancreas, an d adrenal glands are normal. The kidneys are unremarkable. A diverting transverse colostomy is again noted. There are abnormal enhancing lesions in the T8, T10, T12, and L5 vertebral bodies. Multiple no dules are again noted in the visualized lung bases. There are no pathologically enlarged abdominal ly mph nodes. No dilated loops of bowel are evident. ABDOMEN MRCP: No stone or stricture of the common bile duct. The common bile duct measures up to 3 mm . The pancreatic duct is unremarkable. IMPRESSION: 1. Interval worsening of metastatic disease as evidenced by enlarging liver masses and vertebral body masses. Reviewed, dictated and finalized at location L. IMPRESSION: 1. Interval worsening of metastatic disease as evidenced by enlarging liver mas ses and vertebral body masses.
== END 2022-12-07 11:01 | disposition home or self-care (01) ==
PROVIDERS: Visit Provider Internal Medicine Medical Oncology
DX: C18.7 Malignant neoplasm of sigmoid colon (principal); C78.7 Secondary malignant neoplasm of liver and intrahepatic bile duct
CPT/HCPCS: 74183; 76376; A9577

== ENCOUNTER 2023-01-16 10:49 | Outpatient (CLI) | payer OTHER, SELFPAY ==
--- NOTE | ~2023-01-16 | CT_ITS ---
EXAMINATION: CT chest abdomen pelvis w con DATE: 01/16/2023 12:06 INDICATION: Malignant neoplasm of sigmoid colon. TECHNIQUE: Computed tomography (CT) of the chest, abdomen, and pelvis was performed with 100 mL Omnip aque 350 intravenous contrast. Automated exposure control and iterative reconstruction technique were employed. The dose-length product was 701.88 mGy-cm. COMPARISON: CT chest, abdomen, and pelvis 10/09/2022 FINDINGS: CHEST CT: There are greater than 20 scattered nodules in the lungs measuring up to 13 mm in right upper lobe. A gain seen are peripheral airspace opacities in right lung centered at the major fissure superiorly. A gain seen is mild atelectasis in right middle lobe. There are dependent airspace and groundglass opac ities in the lower lobes, which are new. No pleural effusion. There is a left subclavian port with ti p at superior cavoatrial junction. The heart size is normal. There are coronary artery calcifications . No pericardial effusion. There is mild bilateral gynecomastia. There are mixed lytic and sclerotic lesions involving T8, T10, and T12 vertebral bodies and left 9th rib. ABDOMEN/PELVIS CT: There are multiple masses in the liver. Some of the masses have densities that may be calcifications or changes of chemoembolization if the patient has that clinical history. For example, a 10.9 x 7.5 c m mass in right hepatic lobe previously measured 10.2 x 8.1 cm. A 1.9 cm mass in right hepatic lobe p reviously measured 0.4 cm. The gallbladder, spleen, pancreas, adrenal glands, and right kidney are no rmal. There is cortical thinning of left kidney. There is a diverting colostomy on the left. There ar e bilateral inguinal hernias containing fat. The appendix is normal. Again seen is eccentric wall thi ckening of the rectosigmoid. There is calcified atherosclerosis of the aorta and many of the other ar teries. There are no pathologically enlarged lymph nodes. There is no ascites. There is mild lumbar s pondylosis. IMPRESSION: 1. Eccentric wall thickening of the rectosigmoid again seen, likely primary malignancy. 2. Liver masses, lung nodules, and bone lesions with interval worsening, consistent with metastatic d isease. 3. Dependent airspace and groundglass opacities in the lower lobes, which may be pneumonia or treatme nt effects. Reviewed, dictated and finalized at location A. IMPRESSION: 1. Eccentric wall thickening of the rectosigmoid again seen, likely primary mal ignancy. 2. Liver masses, lung nodules, and bone lesions with interval worsening, consis tent with metastatic disease. 3. Dependent airspace and groundglass opacities in the lower lobes, which may b e pneumonia or treatment effects.
[2023-01-16 12:02] LABS: Estimated Glomerular Filt Rate > 60
== END 2023-01-16 10:50 | disposition home or self-care (01) ==
LOC: ANHIMG 10:51
PROVIDERS: Visit Provider Internal Medicine Medical Oncology
DX: C18.7 Malignant neoplasm of sigmoid colon (principal); C78.7 Secondary malignant neoplasm of liver and intrahepatic bile duct; R91.8 Other nonspecific abnormal finding of lung field; M89.9 Disorder of bone, unspecified
CPT/HCPCS: 71260; 74177; Q9967